=== PATIENT | male | born 1975 | race Caucasian/White ===

== ENCOUNTER → 2021-06-29 14:50 | Outpatient (REF) | payer OTHER, SELFPAY | LOC: ANHLAB 14:50 | PROVIDERS: PCP Family Medicine; Visit Provider Nurse Practitioner | DX: L72.11 Pilar cyst (principal) | CPT/HCPCS: 88304 ==

== ENCOUNTER → 2021-07-06 13:22 | Outpatient (REF) | payer OTHER, SELFPAY | LOC: ANHLAB 13:22 | PROVIDERS: PCP Family Medicine; Visit Provider Nurse Practitioner | DX: L72.11 Pilar cyst (principal); L72.0 Epidermal cyst | CPT/HCPCS: 88304 ==

== ENCOUNTER 2025-04-13 05:01 | Emergency (ER) | payer SELFPAY ==
--- NOTE | ~2025-04-13 | CT_ITS ---
CT of the Abdomen and Pelvis: Indication: Scrotal erythema and swelling Technique: 2.5 mm axial scans were obtained through the abdomen and pelvis following intravenous adm inistration of 100 cc of Omnipaque 350. Dose reduction technique was used on this scan by utilizing a utomated exposure control and iterative reconstruction technique. The dose-length product (DLP) was 1 619.43 mGy-cm. Findings: Scans through the lung bases are unremarkable. The liver, spleen, pancreas, gallbladder, adrenals and kidneys are within normal limits. No evidence of aortic aneurysm. No lymphadenopathy. Questionable minimal wall thickening of several small bowel loops. Relatively fluid-filled large lacey l present. Images through the pelvis were performed. Urinary bladder unremarkable. No pelvic mass. No ascites. T here is diffuse scrotal edema noted. Impression: Questionable nonspecific enterocolitis. Diffuse scrotal soft tissue edema, nonspecific. Reviewed, dictated and finalized at [facility]. Impression: Questionable nonspecific enterocolitis. Diffuse scrotal soft tissue edema, nonspecific.
--- NOTE | ~2025-04-13 | US_ITS ---
Testicular ultrasound with doppler. Indication: Torsion. Technique: Real-time sonography the scrotum was performed. Color flow Doppler and Doppler spectral an alysis were performed. Findings: The testes are homogeneous in echotexture bilaterally. There is no evidence of an intrates ticular mass. The right testis measures 3.8 x 2.1 x 2.9 cm and the left 3.4 x 2.3 x 2.4 cm. There is color-flow seen to both testes. Arterial and venous spectral waveforms are seen in both testes. There is no sonographic evidence of torsion. Suggestion of heterogeneous enlargement of the mid to distal left epididymis with somewhat asymmetric left scrotal wall thickening/edema. Impression: Findings suggestive of left epididymitis with associated left scrotal wall thickening/edema. No testicular mass or torsion. Reviewed, dictated and finalized at [facility]. Impression: Findings suggestive of left epididymitis with associated left scrotal wall thic kening/edema. No testicular mass or torsion.
[2025-04-13 05:07] VITALS: BP 126/78; PULSE 126; RESP 18; TEMP 36.5; O2SAT 97
--- OUTSIDE RECORDS SUMMARY | 2025-04-13 05:08 | XMS_ITS | Referral Summary ---
Author Organization [facility] Address [address] [place] [address] Care Team Providers Care Electrical Maintenance Man Name Role Phone Gloria Keane MD Primary Care Provider +1- [phone] Allergies Active Allergy Reactions Criticality Noted Date Comments Penicillins Other (See comments) Low 05/14/2023 unknown Social History Tobacco Use Types Packs/Day Years Used Date Smoking Tobacco: Never Tobacco Cessation:Counseling Given: Not Answered Alcohol Use Standard Drinks/Week Comments Yes 0 (1 standard drink = 0.6 oz pur e alcohol) rare Personal Safety Answer Date Recorded Getting School Help Needed Not on file 01/20 Sex and Gender Information Value Date Recorded Sex Assigned at Not on file Legal Sex Male 2:42 AM CDT Gender Identity Not on file Sexual Orientation Not on file Last Filed Vital Signs Vital Sign Reading Time Taken Comments Blood Pressure 157/115 05/14/2023 4:23 AM CDT Pulse 90 05/14/2023 4:23 AM CDT Temperature 36.6 C (97.9 F) 05/14/2023 4:23 AM CDT Respiratory Rate 19 05/14/2023 4:23 AM CDT Oxygen Saturation 97% 05/14/2023 4:23 AM CDT Inhaled Oxygen Concentration - - Weight 119.4 kg (263 lb 3.7 oz) 05/14/2023 2:49 AM CDT Height 185.4 cm (6' 1) 05/14/2023 2:49 AM CDT Body Mass Index 34.73 05/14/2023 2:49 AM CDT Plan of Treatment Not on file Insurance [facility] CHOICE PLUS Care Teams Electrical Maintenance Man Relationship Specialty Start Date End Date Gloria Keane MD [address] [place] [address] [place] [address] PCP - General Family Medicine 05/14/23
--- OUTSIDE RECORDS SUMMARY | 2025-04-13 05:08 | XMS_ITS | Clinical Summary ---
Author Organization [facility] Address [address] [place] [address] Care Team Providers Care Sumac Tanner Name Role Phone Gloria Keane MD Primary Care Provider [phone]- [phone] Allergies Active Allergy Reactions Criticality Noted Date Comments Penicillins Other (See comments) Low 05/14/2023 unknown Surgical History Surgery Date Site/Laterality Comments SKIN SURGERY Medical History Medical History Date Comments Hypertension Social History Tobacco Use Types Packs/Day Years [...] on file Sexual Orientation Not on file Obstetrics History Last Filed Vital Signs Vital Sign Reading [...] 05/14/2023 2:49 AM CDT Plan of Treatment Health Maintenance Due Date Last Done Comments Colon Cancer Screening-Colonoscopy 1975 Depression Screening 1975 Hepatitis C Screening 1975 Prostate Cancer Screening-PSA 1975 DTaP/Tdap/Td Vaccine (1 - Tdap) 1986 Hepatitis B Screening 1993 Regular Well Visit/Exam 18-64 1993 Covid-19 Vaccine ( - season) 2024 09/09/2022, 11/11/2021, 02/09/2021, Additional history exists Zoster Vaccine (1 of 2) 2025 Influenza Vaccine (Season Ended) 2025 Pneumococcal vaccine <65 Aged Out No longer eligible based on patient's age to complete this topic Insurance [facility] CHOICE PLUS [facility] HMO/PPO Address: [facility] [address] [place] [address] Care Teams Sumac Tanner Relationship Specialty Start Date End Date Gloria Keane MD [facility] [place] [address] PCP - General Family Medicine 05/14/23
--- OUTSIDE RECORDS SUMMARY | 2025-04-13 05:08 | XMS_ITS | Data Portability ---
Author Organization [place] - [facility], Main Office Address [address] [place] [address] Assessment No assessment recorded. Plan of Treatment Reminders Order Date Submit Date Provider Last Modified By Organization Details Last Modified Time Details Appointments Follow Up 15 2024 07:30A MONTEZ Santiago Not available Not available Not available Lab vitamin D, 25-hydrox y, total, serum 2024 025 [facility], [address], [address], [place], [address], 03/18/2025 08:07:25 cobalamin and folate panel, serum 2024 025 [email or web address], [address], [address], [place], [address], 03/18/2025 08:07:25 PSA, serum or plasma 2024 025 [facility], [address], [address], [place], [address], 03/18/2025 08:07:24 noninvasi ve colorecta l cancer DNA + occult blood screening , QL, stool 2024 025 [facility] (Cologuard Orders Only), Caridad E Roc Mehta, [address], [place], [address], 03/18/2025 08:07:24 CBC w/ auto diff 2024 025 SALIMA [facility], [address], [address], [place], [address], 03/12/2025 10:26:36 CMP, serum or plasma 2024 025 [email or web address], [address], [address], [place], [address], 03/18/2025 08:07:24 TSH, ultra-sen sitive, serum 2024 025 [email or web address], [address], [address], [place], [address], 03/18/2025 08:07:25 lipid panel, serum 2024 025 [facility], [address], [address], [place], [address], 03/18/2025 08:07:25 HbA1c (hemoglob in A1c), blood 2024 025 [facility], [address], [address], [place], [address], 03/18/2025 08:07:25 Referral dermatolo gist referral - Please call patient to schedule an appointme nt. Thank you. 2024 025 [facility], [address] [place] [address], [place], [address], 03/17/2025 18:18:05 ophthalmo logist referral 2022 023 [email or web address] Oleg Wiseman MD, [address] [facility] [facility], [place], [address], 02/09/2023 13:27:36 Procedures None recorded. Surgeries None recorded. Imaging None recorded. Medication Orders cetirizin e 10 mg tablet 2024 025 [facility], [address], [place], [address], 03/11/2025 09:19:59 amlodipin e 10 mg tablet 2024 025 [facility], [address] [place], [address], 01/10/2025 09:01:05 atenolol 50 mg tablet [address], [address] [place], [address], 03/11/2025 08:55:41 atenolol 100 mg tablet 2024 025 [facility] [address], [address] [place], [address], 01/10/2025 09:01:05 metoprolo l tartrate 25 mg tablet [address] [facility] [address], [address] [place], [address], 03/11/2025 08:55:57 amlodipin e 10 mg tablet 2023 024 [facility] [address], [address] [place], [address], 10/22/2024 09:46:17 Patient TargetsNo targets recorded. Patient InstructionsNo instructions recorded. Reason for Referral Scanning Coordinator Referral for Visual disturbance Referring Physician: Gloria Keane [facility], Encounter Date: 01/06/2023 House Carpenter Helper Referral for C yst of face Please call patient to schedule an appointment. Thank you. Referring Physician: Lisa Watson Family [facility], Encounter Date: 03/11/2025 Results Created Date Observation Date Name Description Value Unit Range Abnormal Flag Note LastModifiedBy Organization Detail LastModifiedTime 08/09/20 21 08/09/2021 SARS- COV-2 (COVI D-19) ANTIG EN sars-cov-2 (covid-19) antigen non-re active non-re active This test has been autho rized by the FDA under an Emerg ency Use Autho rizat ion (EUA) for use by autho rized labor atori es. This test is only for the detec tion of SARS- CoV-2 antig en, not for any other virus es or patho gens. Negat dennis resul ts from patie nts with sympt om onset outsi de of one to six days shoul d be treat ed as presu mptiv e. Negat dennis resul ts do not rule out SARS- CoV-2 infec tion and shoul d not be used as the sole basis of treat ment or patie nt manag ement decis ions, inclu ding infec tion contr ol decis ions. Negat dennis resul ts shoul d be consi dered in the jennifer xt of a patie nt's recen t expos ures, histo ry and the prese nce of clini diomedes signs and sympt oms consi stent with COVID -19. The VITRO S Immun odiag nosti cs Produ cts SARS- CoV-2 Antig en Lette r of Autho rizat ion, along with the autho rized Fact Sheet for Healt hcare Provi ders, the autho rized Fact Sheet for Recip ients , and autho rized label ing are avail able on the FDA Websi te: https ://ww w.fda .gov/ medic al-de vices /maurilio yeisonir -[facility] -2019 -covi d-19- emerg ency- use-a torey germain ons-m edica l-dev ices/ vitro -diag nosti cs-eu as# indiv idual -sero logic al Not Available [facility] (Lab) [address] [place], [address], 08/09/2021 11:17:01 08/09/20 21 08/09/2021 SARS- COV-2 (COVI D-19) ANTIG EN signal to cutoff ratio 0.28 0.00-0 .99 Not Available [facility] (Lab) [address] [place], [address], 08/09/2021 11:17:01 03/20/20 25 03/20/2025 COLOG UARD cologuard result reportable NEGATI VE negati ve normal The Colog uard (TM) test was perfo rmed on this speci men. NEGAT DENNIS TEST RESUL T. A negat dennis Colog uard resul t indic ates a low likel ihood that a color ectal cance r (CRC) or advan kaushik adeno ma (evelyn omato us polyp s with more advan kaushik pre-m align ant featu res) is prese nt. The [facility] e that a perso n with a negat dennis Colog uard test has a color ectal cance r is less than 1 in 1500 (nega tive predi ctive value >99.9 %) or has an advan kaushik adeno ma is less than 5.3% (nega tive predi ctive value 94.7% ). These data are based on a prosp ectiv e cross -sect ional study of ,00 0 indiv idual s at [facility] risk for color ectal cance r who were scree jelena with both Colog uard and colon oscop y. (Sukhdev cheema T. et al, N Engl J Med 2014; 370(1 4):12 86-12 97) The yuliya l value (refe rence range ) for this assay is negat dennis. COLOG UARD RE-SC REENI NG RECOM MENDA TION: Perio dic color ectal cance r scree lisa is an impor tant part of preve ntive healt hcare for asymp tomat ic indiv idual s at [facility] risk for color ectal cance r. Follo wing a negat dennis Colog uard resul t, the Ameri can Cance r Socie ty and U.S. Multi -Soci ety Task Force scree lisa guide lines recom mend a Colog uard re-sc reeni ng inter barbara of 3 years . Refer ences : Ameri can Cance r Socie ty Guide line for Color ectal Cance r Scree lisa: https ://noah w.can cer.o rg/ca ncer/ colon -rect al-ca ncer/ detec tion- diagn osis- stagi ng/ac s-rec ommen datio ns.ht ml.; Issa DK, Blayne mane CR, Kelly MarieK, Color ectal Cance r Scree lisa: Recom menda tions for Physi cians and Patie nts from the U.S. Multi -Soci ety Task Force on Color ectal Cance r Scree lisa , Alex hopson y 2017; 112:1 016-1 030. TEST DESCR IPTIO N: Elida site algor ithmi c misty sis of stool DNA-b iokuldeep peraltas with hemog lobin immun oassa y. Quant itati ve value s of indiv idual bioma rkers are not repor table and are not assoc iated with indiv idual bioma rker resul t refer ence range s. Colog uard is inten ded for color ectal cance r scree lisa of adult s of eithe r sex, 45 years or older , who are at [facility] for color ectal cance r (CRC) . Colog uard has been appro gary for use by the U.S. FDA. The perfo rmanc e of Colog uard was estab lishe d in a cross secti onal study of [facility] adult s aged 50-84 . Colog uard perfo rmanc e in patie nts ages 45 to 49 years was estim ated by sub-g roup misty sis of near- age group s. Colon oscop ies perfo rmed for a posit dennis resul t may find as the most clini charity signi roxy frances lesio n: color ectal cance r [4.0% ], advan kaushik adeno ma (incl uding sessi le mary ellen ana laura polyp s great er than or equal to 1cm diame ter) [20%] or non- advan kaushik adeno ma [31%] ; or no color ectal neopl lona [45%] . These estim ates are deriv ed from a prosp ectiv e cross -sect ional scree lisa study of 10,00 0 indiv idual s at [facility] for color ectal cance r who were scree jelena with both Colog uard and colon oscop y. (Impe riale T. et al, N Engl J Med 2014; 370(1 4):12 86-12 97.) Colog uard may produ ce a false negat dennis or false posit dennis resul t (no color ectal cance r or preca ncero us polyp prese nt at colon oscop y follo w up). A negat dennis Colog uard test resul t does not guara ntee the absen ce of CRC or advan kaushik adeno ma (pre- cance r). The curre nt Colog uard scree lisa inter barbara is every 3 years . (Amer ican Cance r Socie ty and U.S. Multi -Soci ety Task Force ). Colog uard perfo rmanc e data in a ,00 0 patie nt pivot al study using colon oscop y as the refer ence metho d can be acces sed at the follo wing locat ion: www.e xactl abs.c om/re sulgeorgie . Addit ional descr iptio n of the Colog uard test proce ss, warni ngs and preca ution s can be found at www.c oltalau pranav.c om. Not Available [facility] (Cologuard Orders Only) [address], [place], [address], 03/30/2025 00:25:27 Result Notes None recorded. Problems Name Problem SNOMED Code Status Onset Date Resolution Date Notes Provider Name and Address Organization Details Recorded Time Visual disturbance 65994946 Active 2022 Gloria Keane MD [address] [facility], [facility] [address], [place], [address], [facility] 3 10:03:47 Cyst of face 314820709 Completed 202203/11/2025 MONTEZ Reddy [address] [facility], [facility] [address], [place], [address], [facility] 5 09:10:59 Essential hypertensio n 02058855 Active 2023 MONTEZ Reddy [address] [facility], [address], [place], [address], [facility] 4 09:45:14 Allergic rhinitis 38197691 Active 2024 MONTEZ Reddy [address] [facility], [address], [place], [address], [facility] 5 09:08:39 Cyst of face 610476861 Active 2024 MONTEZ Reddy [employer] [facility], [address] [address], [place], [address], [facility] 5 09:10:59 Body mass index 30+ - obesity 113803825 Active 2024 MONTEZ Reddy [employer] [facility], [address], [place], [address], [facility] 5 09:19:04 Fatigue 37518500 Active 2024 MONTEZ [employer] [facility], [address] [address], [place], [address], [facility] 5 09:19:39 Vitamin D deficiency 35287885 Active 2024 MONTEZ Reddy [employer] [facility], [address] [address], [place], [address], [facility] 5 11:16:13 Problem Notes None recorded. Medical Equipment None Reported. Allergies Allergen ID Allergen Name Allergen Category Reaction Reaction Severity Criticality Documentation Date Start Date Code Code System Note Provider Name and Address Organization Details Recorded Time 85270 Product containin g penicilli n (product) medicatio n Not available Not available Not available 01/04/2023 32455 8001 SNOMED Not Available [facility] 3 10:48:01 Medications Name Sig Start Date Stop Date Status Note LastModified by Organization Details LastModified Time fluconazole 100 mg tablet Take 1 tablet every day by oral route for 30 days. 01/06 completed Not Available Not Available Not Available cetirizine 10 mg tablet TAKE 1 TABLET BY MOUTH ONCE DAILY NEEDED 2024 active Not Available Not Available Not Avai lable lisinopril 20 mg-hydrochl orothiazide 12.5 mg tablet TK 2 TS PO QD 04/07 completed Not Available Not Available Not Available atenolol 100 mg tablet TAKE 1 TABLET BY MOUTH ONCE DAILY DIRECTED active Not Available Not Available No t Available terbinafine HCl 250 mg tablet TAKE 1 TABLET BY MOUTH EVERY DAY 01/06 completed Not Available Not Available Not Available amlodipine 10 mg tablet Take 1 tablet by mouth once daily 2024 active Not Available Not Available Not Avai lable hydrochloro thiazide 25 mg tablet TK 1 T PO QD 04/07 completed Not Available Not Available Not Available ergocalcife rol (vitamin D2) 1,250 mcg (50,000 unit) capsule TAKE 1 CAPSULE BY MOUTH ONCE A WEEK DIRECTED active Not Available Not Available No t Available atenolol 50 mg tablet TAKE 1 TABLET BY MOUTH ONCE DAILY DIRECTED FOR 30 DAYS 03/11 completed Not Available Not Available Not Available metoprolol tartrate 25 mg tablet TAKE 1 TABLET BY MOUTH TWICE DAILY DIRECTED 03/11 completed Not Available Not Available Not Available Vitals Date Recorded Body weight Body mass index (BMI) Body height Body temperature Heart rate Oxygen saturation Oxygen saturation in Arterial blood by Pulse oximetry Systolic blood pressure Diastolic blood pressure Provider Name and Address Organization Details Last Updated DateTime 3 635530. 79 g 34.7 kg/m2 185.42 cm 98.1 [degF] 82 /min 97 % 97 % 144 mm[Hg] 100 mm[Hg] STEPHANIE Johnson MD [facility] 3 09:51:30 Date Recorded Body height Body mass index (BMI) Body weight Body temperature Heart rate Respiratory rate Oxygen saturation Oxygen saturation in Arterial blood by Pulse oximetry Systolic blood pressure Diastolic blood pressure Provider Name and Address Organization Details Last Updated DateTime 5 185.42 cm 34.4 kg/m2 290381. 61 g 97.3 [degF] 73 /min 20 /min 98 % 98 % 156 mm[Hg] 110 mm[Hg] Elizabeth Torres RN MD [facility] 5 08:48:19 Date Recorded Body height Body mass index (BMI) Body weight Body temperature Heart rate Respiratory rate Oxygen saturation Oxygen saturation in Arterial blood by Pulse oximetry Systolic blood pressure Diastolic blood pressure Provider Name and Address Organization Details Last Updated DateTime 5 185.42 cm 37.9 kg/m2 855024. 46 g 97.3 [degF] 71 /min 24 /min 97 % 97 % 130 mm[Hg] 110 mm[Hg] Elizabeth Torres RN [facility] [facility] 5 08:58:38 Date Recorded Body mass index (BMI) Body height Oxygen saturation Oxygen saturation in Arterial blood by Pulse oximetry Heart rate Body temperature Body weight Systolic blood pressure Diastolic blood pressure Provider Name and Address Organization Details Last Updated DateTime 1 34 kg/m2 185.42 cm 97 % 97 % 83 /min 96.8 [degF] 418338. 83 g 110 mm[Hg] 90 mm[Hg] Not Available [facility] 3 10:43:24 Date Recorded Body weight Body mass index (BMI) Body height Body temperature Heart rate Respiratory rate Oxygen saturation Oxygen saturation in Arterial blood by Pulse oximetry Systolic blood pressure Diastolic blood pressure Provider Name and Address Organization Details Last Updated DateTime 4 320202. 33 g 35.8 kg/m2 185.42 cm 97.2 [degF] 96 /min 20 /min 97 % 97 % 180 mm[Hg] 120 mm[Hg] Elizabeth Torres RN [facility] [employer] [facility] 4 09:34:18 Social History Question Answer Notes LastModified by Organization Details LastModified Time Tobacco Smoking Status Former Smoker Not Available [facility] 01/04/2023 10:41:48 Do You Have An Advance Directive? No Information not available 10/22/2024 What Is Your Level Of Caffeine Consumption? Occasional Information not available 10/22/2024 In The 14 Days Before Symptom Onset, Have You Had Close Contact With A Laboratory-conf irmed COVID-19 While That Case Was Ill? No [id number] Information not available 01/04/2023 In The 14 Days Before Symptom Onset, Have You Had Close Contact With A Person Who Is Under Investigation For COVID-19 While That Person Was Ill? No [id number] Information not available 01/04/2023 What Type Of Diet Are You Following? REGULAR Information not available 10/22/2024 Which Illicit Or Recreational Drugs Have You Used? MJ Information not available 10/22/2024 Have There Been Any Changes To Your Family Or Social Situation? No Information not available 10/22/2024 Are There Any Guns Present In Your Home? No Information not available 10/22/2024 How Many Years Have You Used Illicit Or Recreational Drugs? 15 Information not available 10/22/2024 Do You Use Insect Repellent Routinely? No Information not available 10/22/2024 Where Do You Live? SingleLevelHouse Information not available 10/22/2024 How Many Children Do You Have? 2 Information not available 10/22/2024 Do You Have Any Pets? Yes Information not available 10/22/2024 What Is Your Relationship Status? Single Girlfriend Information not available 10/22/2024 Do You Use Your Seat Belt Or Car Seat Routinely? Yes Information not available 10/22/2024 Do You Have Smoke And Carbon Monoxide Detectors In Your Home? Yes Information not available 10/22/2024 Are You Passively Exposed To Smoke? No Information not available 10/22/2024 Are There Any Smokers In Your House? No Information not available 10/22/2024 How Much Tobacco Do You Smoke? 0.5 PPD [id number] Information not available 01/04/2023 Do You Participate In Social Media? Yes Information not available 10/22/2024 Do You Use Sunscreen Routinely? No Information not available 10/22/2024 How Many Years Have You Smoked Tobacco? 15 [id number] [id number] Information not available 01/04/2023 Have You Recently Traveled Abroad? No Information not available 10/22/2024 Sex: Unknown Functional Status Question Answer Note LastModified by Organizat ion Details LastModified Time Do you use any illicit or recreational drugs? Yes Information not available 10/22/2024 What is your level of alcohol consumption? Occasional [id number] Information not available 01/04/2023 Are you currently employed? 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 None Information not available 10/22/2024 Mental Status Question Answer Note LastModified by Organization D etails LastModified Time Do you feel stressed (tense, restless, nervous, or anxious, or unable to sleep at night)? [id number] Information not available 10/22/2024 Family History Relationship Description Onset Age of this Age Resolved Age Notes LastModified by Organization Details LastModified Time Father No current problems or disability [id number] Not available 01/04/2023 10:42:39 Mother No current problems or disability [id number] Not available 01/04/2023 10:42:39 Medical History Condition Response ANXIETY DISORDER Y HYPERTENSION Y Past Encounters Encounter ID Performer Location Encounter Start Date Encounter Closed Date Diagnosis/Indication Diagnosis SNOMED-CT Code Diagnosis ICD10 Code Diagnosis Note [id number] Gloria Keane MD [facility] [address] [facility] [place] [address] 04/07/2021 00:00:00 04/07/2021 21:33:59 [id number] Gloria Keane MD [facility] [address] [place] [address] [place] [address] 04/28/2021 00:00:00 04/28/2021 09:40:46 [id number] Gloria Keane MD [facility] [address] [place] [address] [place] [address] 01/06/2023 09:46:41 01/06/2023 10:21:04 Visual disturbance 19195056 H53.9 Cyst of face 643020223 R 22.0 Reassuranc e given and has solar lentigo under the cyst. [id number] Clinton Obregon MD [address] [address] [place] [address] 10/22/2024 09:22:56 10/22/2024 09:48:30 Essential hypertension 46418381 I10 [facility] $4 listWill follow up in 6 weeks [id number] Clinton Obregon MD [facility] [place] [address] [place] [address] 01/10/2025 08:34:19 01/10/2025 09:06:36 Essential hypertension 18317156 I10 Will start BP log, feels he has white coat syndrome.W ill follow up in 6 weeks [id number] MONTEZ Reddy [address] [address] 03/11/2025 08:42:49 03/11/2025 09:31:10 Allergic rhinitis 83320764 J30.9 Eyes tennille red, itchy Adult heal examination 216518090 Z00.00 Patient is overall healthyHea [facility] reviewedDi scussed diet and exercisePa tient questions answered Essential hypertension 16708008 I10 Will start BP log, feels he has white coat syndrome.W ill follow up in 6 weeks Cyst of face 933030226 R 22.0 History of surgical removal, has returned Screening for malignant neoplasm of colon 119789055 Z12.11 Screening for malignant neoplasm of prostate 201172308 Z12.5 Body mass index 30+ - obesity 939114147 E66.9 Fatigue 31963987 R53.82 Health Concerns Section Related Observation LastModified by Organization Detai ls LastModified Time None Recorded Concern Status LastModified by Organization Details LastModified Time None Recorded Advance Directives Directive N: Payers Encounter Date Sequence Insurance Name Policy Number Policy Watson Covered Member ID Watson Member ID Guarantor Name 01/06/2023 1 [facility] [id number] [facility] [id number] [facility] 10/22/2024 1 *SELF PAY* [facility] 01/10/2025 1 [employer] [id number] 02 [facility] [id number] [facility] 03/11/2025 1 [employer] [id number] 02 Edilberto Dela Cruz [id number] F Edilberto Dela Cruz Notes Date Note Type Note Provider Name and Address Organization Details Recorded Time 01/06/2023 text/html Here today for a referral for family program specialist Has a mole on right cheek. Also needs to see an eye doctor. Everything is getting darker. Has blurry vision. His BP is a little high today. His BP are good at home. Took meds today for BP. Gloria Keane MD [address] [employer], [address], [place], [address], [facility] 01/06/2023 17:14:34 10/22/2024 text/html Edilberto Dela Cruz is a 49 year old male patient here today for hypertension He has a history of hypertension. He has been taking amlodipine 10 mg PO daily. States he has been spacing these out because he does not have a pending refillHe previously took lisinopril 20-HCTZ 12.5 mg and found this made him nauseous MONTEZ Reddy [address] [employer], [address], [place], [address], [facility] 10/22/2024 09:48:25 01/10/2025 text/html Edilberto Dela Cruz is a 49 year old male patient here today for a hypertension FU He has a history of hypertension. BP on arrival 156/110. States he is symptomaticHe previously took lisinopril 20-HCTZ 12.5 mg and found this made him nauseousCurrently taking amlodipine 10 mg PO daily and metoprolol 25 mg BID MONTEZ Reddy [address], [facility] [address], [place], [address], [facility] 01/10/2025 09:04:51 03/11/2025 text/html Edilberto Dela Cruz is a 50 year old male patient here today for an annual wellness visit. He has a history of hypertension. This is managed with amlodipine and atenolol History of sebacous cysts of the scalp, has had 4 removed Flu shot: declinesCOVID vaccines: x6Tdap: recommendedColonoscopy : cologuard ordered Lisa Watson, MONTEZ [address] [facility], [facility] [address], [place], [address], [place] [facility] 03/11/2025 09:23:20
--- NOTE | 2025-04-13 05:55 | PC.NURSE ---
patient reports to the nursing stating,I had an accident. patient noted to have bowel movement in his room near his belongings. patient then able to ambulate with steady unassisted gait towards the bathroom to finish his bowel movement. edp dr. obregon aware.
--- OUTSIDE RECORDS SUMMARY | 2025-04-13 06:03 | XMS_ITS | Referral Summary ---
Author Organization [facility] Address [address] [place] [address] Care Team Providers Care Kettle Hand Name Role Phone Gloria Keane MD Primary Care Provider +1- [phone] Allergies Active Allergy Reactions Criticality Noted Date [...] Plan of Treatment Not on file Insurance [facility] H[facility]/PPO Address: [facility] [id number] [place] [address] Care Teams Kettle Hand Relationship Specialty Start Date End Date Gloria Keane MD [address] [place] [address] [place] [address] PCP - General Family Medicine 05/14/23
--- OUTSIDE RECORDS SUMMARY | 2025-04-13 06:03 | XMS_ITS | Clinical Summary ---
Author Organization [facility] Address [address] [place] [address] Care Team Providers Care Collar Turner Operator Name Role Phone Gloria Keane MD Primary Care Provider +1- [phone] Allergies Active Allergy Reactions Criticality Noted Date [...] patient's age to complete this topic Insurance [facility] CHOICE PLUS Care Teams Collar Turner Operator Relationship Specialty Start Date End Date Gloria Keane MD [facility] [place] [address] PCP - General Family Medicine 05/14/23
[2025-04-13] MEDS: SODIUM CHLORIDE 0.9% IV 1,000 ML 999 ML IV CONT (06:17)
--- NOTE | 2025-04-13 06:18 | ED_ITS ---
HPI - Male Genitourinary General Chief complaint: Urogenital-Male <Xavi Dodd MD - Last Filed: 04/16/25 21:48> Stated complaint: Hernia?, swollen scrotum <Xavi Dodd MD - Last Filed: 04/16/25 21:48> Time Seen by Provider: 04/13/25 05:42 <Xavi Dodd MD - Last Filed: 04/16/25 21:48> History of Present Illness HPI Narrative: 50-year-old male with a past medical history including hypertension presenting to the emergency room with left-sided scrotal pain and swelling. Patient thinks he might have a hernia but did note that he had some potential bug bite to his scrotum a week ago and things that could also be related. Denies any urinary issues, hematuria, dysuria. No abdominal surgeries, no history of diabetes to his knowledge. No nausea, vomiting, inguinal pain, groin pain or flank pain. No trauma or injury. <Xavi Dodd MD - Last Filed: 04/16/25 21:48> Related Data Home medications: Home Medications ?Medication ?Instructions ?Recorded ?Confirmed ?Last Taken ?Type amlodipine 10 mg tablet 10 mg PO DAILY 05/03/21 04/14/25 04/13/25 History atenolol 100 mg tablet 100 mg PO Q24H 04/15/25 04/15/25 Unknown History cetirizine 10 mg tablet 10 mg PO DAILY PRN allergy symptoms 04/15/25 04/15/25 Unknown History <Xavi Dodd MD - Last Filed: 04/16/25 21:48> Allergies/Adverse reactions: Allergies Allergy/AdvReac Type Severity Reaction Status Date / Time Penicillins Allergy unknown Verified 04/14/25 12:39 <Xavi Dodd MD - Last Filed: 04/16/25 21:48> Review of Systems 2 Review of Systems: As reviewed above in HPI <Xavi Dodd MD - Last Filed: 04/16/25 21:48> [facility] Past Medical History Medical History: Medical History (Updated 04/16/25 @ 10:07 by Too Severino Jr., RECTIFYING OPERATOR) Marijuana abuse Vapes nicotine containing substance Sepsis Hypokalemia Scrotal abscess Hypertension <Xavi Dodd MD - Last Filed: 04/16/25 21:48> Social History Social History: Social History Smoking status: Current some day smoker Tobacco type: e-cigarettes/vaping Additional smoking assessment comments: Vaping Alcohol intake: current Drinks per week: 1 Substance use: current Substance use type: marijuana Last use: 04/09 Do You Feel Safe in your Home?: Yes Lack of Transportation: No Lack of Food: Never True Current Housing: I Have Housing Concerned About Future Housing: No Difficulty Paying Gas/Electric Bills: No Difficulty Paying for Meds: No Currently Unemployed: No Education: High School Diploma/GED Difficulty w/ Childcare or Family Care: No Spiritual care concerns: No <Xavi Dodd MD - Last Filed: 04/16/25 21:48> Exam 2 Narrative: GENERAL: [Well-appearing, well-nourished, and in no acute distress.] HEAD: [Normocephalic, atraumatic.] EYES: [PERRLA and EOMI.] ENT: Nares clear, no rhinorrhea or epistaxis. Mucous membranes moist. NECK: Supple. CHEST: [Clear to auscultation. No respiratory distress.] HEART: [Regular rate and rhythm]. No murmur heard. [Normal peripheral pulses.] ABDOMEN: [Soft, nondistended], [nontender], [No rigidity or guarding] : Circumcised penis, testicles are descended bilaterally with left-sided fullness and tenderness with palpation with what appears to be bilateral scrotal edema and erythema. No purulent drainage or any identifiable lesions, No epididymal pain or appreciable lymphadenopathy, no appreciable hernia defect on examination, no inguinal pain or masses. EXTREMITIES: Normal range of motion. [No edema.] SKIN: Warm, dry, no rash. NEURO: [No focal deficits]. Alert and oriented [x3.] PSYCH: [Normal mood and affect.] <Xavi Dodd MD - Last Filed: 04/16/25 21:48> Course Course Emergency Course: Patient resting comfortably. Informed of results. Received is ceftriaxone IM and will be given doxycycline for home. Epididymitis on ultrasound. No cellulitis or other significant issue on CT scan. Possible enterocolitis. <Fadi Elizondo MD - Last Filed: 04/13/25 09:29> Vital Signs Vital signs: Vital Signs Temperature 36.5 C 04/13/25 05:07 Pulse Rate 126 H 04/13/25 05:07 Respiratory Rate 18 04/13/25 05:07 Blood Pressure 126/78 04/13/25 05:07 Pulse Oximetry 97 04/13/25 05:07 Oxygen Delivery Room Air 04/13/25 05:07 Temperature 36.5 C 04/13/25 05:07 Pulse Rate 95 04/13/25 08:21 Respiratory Rate 18 04/13/25 08:21 Blood Pressure 91/59 L 04/13/25 08:21 Pulse Oximetry 97 04/13/25 08:21 Oxygen Delivery Room Air 04/13/25 05:07 <Xavi Dodd MD - Last Filed: 04/16/25 21:48> Vital Signs Temperature 36.5 C 04/13/25 05:07 Pulse Rate 126 H 04/13/25 05:07 Respiratory Rate 18 04/13/25 05:07 Blood Pressure 126/78 04/13/25 05:07 Pulse Oximetry 97 04/13/25 05:07 Oxygen Delivery Room Air 04/13/25 05:07 Temperature 36.5 C 04/13/25 05:07 Pulse Rate 95 04/13/25 08:21 Respiratory Rate 18 04/13/25 08:21 Blood Pressure 91/59 L 04/13/25 08:21 Pulse Oximetry 97 04/13/25 08:21 Oxygen Delivery Room Air 04/13/25 05:07 <Fadi Elizondo MD - Last Filed: 04/13/25 09:29> MDM - Male Genitourinary MDM Narrative Medical decision making narrative: 50-year-old male presenting with scrotal pain and thinks that he has a potential hernia verses bug bite/infection. Denies any urinary issues, no nausea, vomiting, abdominal pain, fever, chills. He appears mildly uncomfortable on examination he has circumcised penis, testicles are descended bilaterally with left-sided fullness and tenderness with palpation with what appears to be bilateral scrotal edema and erythema. No purulent drainage or any identifiable lesions, No epididymal pain or appreciable lymphadenopathy, no appreciable hernia defect on examination, no inguinal pain or masses. Ultrasound was ordered to rule out testicular torsion or any fluid collections, CT scan of the abdomen pelvis with attention to the scrotum was ordered for potential infectious process, scrotal edema, epididymitis, inguinal hernia, testicular masses. Low suspicion necrotizing soft tissue infection, but he is slightly tachycardic likely secondary to pain. He was given morphine and fluids, laboratory studies ordered. Ultrasound shows left epididymitis with scrotal wall edema and thickening consistent with examination but no testicular mass or torsion. He was given a dose of Rocephin and doxycycline for potential STI verses E coli causing the epididymitis. CT scan is pending. Signed out to oncoming physician pending results and likely discharge home on oral antibiotics if unremarkable. Urology follow-up placed. <Xavi Dodd MD - Last Filed: 04/16/25 21:48> Medical Records Attestation: I reviewed the patient's medical records. <Xavi Ddod MD - Last Filed: 04/16/25 21:48> Lab Data Attestation: I reviewed the patient's lab results. <Xavi Dodd MD - Last Filed: 04/16/25 21:48> Result diagrams: 04/13/25 06:14 04/13/25 06:14 <Xavi Dodd MD - Last Filed: 04/16/25 21:48> Labs: Lab Results 04/13/25 04/13/25 Range/Units 06:14 07:48 WBC 5.7 (4.5-10.0) K/mm3 RBC 5.28 (4.6-6.20) M/mm3 Hgb 15.4 (14.0-18.0) g/dL Hct 46.9 (42.0-52.0) % MCV 88.8 (80-100) fl MCH 29.2 (26-34) pg MCHC 32.8 (32-36) g/dl RDW 12.2 (11.5-14.5) % Plt Count 171 (150-375) k/mm3 MPV 10.3 (7.4-10.4) fl Immature Gran % (Auto) Not Reportable Neut % (Auto) Not Reportable Lymph % (Auto) Not Reportable [place] % (Auto) Not Reportable Eos % (Auto) Not Reportable Baso % (Auto) Not Reportable Lymph # (Auto) Not Reportable [place] # (Auto) Not Reportable Eos # (Auto) Not Reportable Baso # (Auto) Not Reportable Abs Immat Gran (auto) Not Reportable Absolute Neuts (auto) Not Reportable Absolute Nucleated RBC Not Reportable Total Counted 100 Neutrophils % (Manual) 74 H (46-73) % Band Neutrophils % 18 H (0-6) % Lymphocytes % (Manual) 5 L (18-44) % Monocytes % (Manual) 2 L (3-9) % Eosinophils % (Manual) 1 (0-4) % Nucleated RBC % Not Reportable Abs Neuts (Manual) 5.24 (1.3-6.7) K/mm3 Abs Lymphs (Manual) 0.28 L (1.1-4.5) K/mm3 Abs Monocytes (Manual) 0.11 (0.1-0.90) K/mm3 Absolute Eos (Manual) 0.05 (0.02-0.50) K/mm3 Platelet Estimate Adequate (Adequate) Schistocytes None seen PT 14.6 (11.1-14.7) Seconds INR 1.1 APTT 29.8 (22.3-36.8) Seconds Sodium 136 L (137-145) mmol/L Potassium 3.6 (3.4-5.0) mmol/L Chloride 100 (98-107) mmol/L Carbon Dioxide 23 (22-30) mmol/L Anion Gap 13 H (4-12) mmol/L BUN 20 (9-20) mg/dL Creatinine 1.72 H (0.7-1.3) mg/dL Estim Creat Clear Calc 64 ml/min Estimated GFR 42 L (59 - ) Glucose 136 H (65-110) mg/dL Calcium 9.6 (8.4-10.2) mg/dL Total Bilirubin 2.1 H (0.2-1.3) mg/dL AST 51 (17-59) U/L ALT 60 H (6-50) U/L Alkaline Phosphatase 105 (38-126) U/L Total Protein 7.7 (6.3-8.2) g/dL Albumin 4.6 (3.5-5.1) g/dL Urine Color Dark yellow (Yellow) Urine Appearance Cloudy H (Clear) Urine pH 7.5 (5.0-9.0) Ur Specific [place] > 1.045 H (1.001-1.035) Urine Protein 3+ H (Negative) mg/dL Urine Glucose (UA) Trace H (Negative) mg/dL Urine Ketones Negative (Negative) mg/dL Ur Blood (Man) Trace (Negative) Urine Nitrate Negative (Negative) Urine Bilirubin Negative (Negative) Urine Urobilinogen 1.0 (<2.0) mg/dL Add Ur Microanalysis Reviewed Leukocyte Esterase Rfl 1+ H (Negative) SUNG/UL Urine RBC 0-2 (0-2) /hpf Urine WBC 51-100 H (0-3) /hpf Ur Squamous Epith Cells None seen (Few) /hpf Urine Bacteria None seen /hpf Urine Casts >20 Granular Casts 1-2 H (None) /lpf <Xavi Dodd MD - Last Filed: 04/16/25 21:48> Lab Results 04/13/25 04/13/25 Range/Units 06:14 07:48 WBC 5.7 (4.5-10.0) K/mm3 RBC 5.28 (4.6-6.20) M/mm3 Hgb 15.4 (14.0-18.0) g/dL Hct 46.9 (42.0-52.0) % MCV 88.8 (80-100) fl MCH 29.2 (26-34) pg MCHC 32.8 (32-36) g/dl RDW 12.2 (11.5-14.5) % Plt Count 171 (150-375) k/mm3 MPV 10.3 (7.4-10.4) fl Immature Gran % (Auto) Not Reportable Neut % (Auto) Not Reportable Lymph % (Auto) Not Reportable [place] % (Auto) Not Reportable Eos % (Auto) Not Reportable Baso % (Auto) Not Reportable Lymph # (Auto) Not Reportable [place] # (Auto) Not Reportable Eos # (Auto) Not Reportable Baso # (Auto) Not Reportable Abs Immat Gran (auto) Not Reportable Absolute Neuts (auto) Not Reportable Absolute Nucleated RBC Not Reportable Total Counted 100 Neutrophils % (Manual) 74 H (46-73) % Band Neutrophils % 18 H (0-6) % Lymphocytes % (Manual) 5 L (18-44) % Monocytes % (Manual) 2 L (3-9) % Eosinophils % (Manual) 1 (0-4) % Nucleated RBC % Not Reportable Abs Neuts (Manual) 5.24 (1.3-6.7) K/mm3 Abs Lymphs (Manual) 0.28 L (1.1-4.5) K/mm3 Abs Monocytes (Manual) 0.11 (0.1-0.90) K/mm3 Absolute Eos (Manual) 0.05 (0.02-0.50) K/mm3 Platelet Estimate Adequate (Adequate) Schistocytes None seen PT 14.6 (11.1-14.7) Seconds INR 1.1 APTT 29.8 (22.3-36.8) Seconds Sodium 136 L (137-145) mmol/L Potassium 3.6 (3.4-5.0) mmol/L Chloride 100 (98-107) mmol/L Carbon Dioxide 23 (22-30) mmol/L Anion Gap 13 H (4-12) mmol/L BUN 20 (9-20) mg/dL Creatinine 1.72 H (0.7-1.3) mg/dL Estim Creat Clear Calc 64 ml/min Estimated GFR 42 L (59 - ) Glucose 136 H (65-110) mg/dL Calcium 9.6 (8.4-10.2) mg/dL Total Bilirubin 2.1 H (0.2-1.3) mg/dL AST 51 (17-59) U/L ALT 60 H (6-50) U/L Alkaline Phosphatase 105 (38-126) U/L Total Protein 7.7 (6.3-8.2) g/dL Albumin 4.6 (3.5-5.1) g/dL Urine Color Dark yellow (Yellow) Urine Appearance Cloudy H (Clear) Urine pH 7.5 (5.0-9.0) Ur Specific [place] > 1.045 H (1.001-1.035) Urine Protein 3+ H (Negative) mg/dL Urine Glucose (UA) Trace H (Negative) mg/dL Urine Ketones Negative (Negative) mg/dL Ur Blood (Man) Trace (Negative) Urine Nitrate Negative (Negative) Urine Bilirubin Negative (Negative) Urine Urobilinogen 1.0 (<2.0) mg/dL Add Ur Microanalysis Reviewed Leukocyte Esterase Rfl 1+ H (Negative) SUNG/UL Urine RBC 0-2 (0-2) /hpf Urine WBC 51-100 H (0-3) /hpf Ur Squamous Epith Cells None seen (Few) /hpf Urine Bacteria None seen /hpf Urine Casts >20 Granular Casts 1-2 H (None) /lpf <Fadi Elizondo MD - Last Filed: 04/13/25 09:29> Imaging Data Attestation: I personally reviewed and interpreted this imaging study as follows: < Xavi Dodd MD - Last Filed: 04/16/25 21:48> My impression: Impressions Scrotum Ultrasound 04/13/25 06:53 Impression: Findings suggestive of left epididymitis with associated left scrotal wall thickening/edema. No testicular mass or torsion. <Xavi Dodd MD - Last Filed: 04/16/25 21:48> Discharge Plan Discharge Clinical Impression: Epididymitis, left <Xavi Dodd MD - Last Filed: 04/16/25 21:48> Patient Disposition: Home <Xavi Dodd MD - Last Filed: 04/16/25 21:48> Condition: Stable <Xavi Dodd MD - Last Filed: 04/16/25 21:48> Instructions: Antibiotic Form, Epididymitis (ED) <Xavi Dodd MD - Last Filed: 04/16/25 21:48> Additional Instructions: Follow-up with the urologist, complete the course of antibiotics. Return with any worsening pain, worsening swelling, intractable fever, inability to tolerate oral intake or any other acute concerns. <Xavi Dodd MD - Last Filed: 04/16/25 21:48> Patient Language: French <Xavi Dodd MD - Last Filed: 04/16/25 21:48> Prescriptions: New doxycycline hyclate 100 mg tablet 100 mg PO DAILY 10 Days Qty: 10 0RF No Action amlodipine 10 mg tablet 10 mg PO DAILY atenolol 100 mg tablet 100 mg PO Q24H cetirizine 10 mg tablet 10 mg PO DAILY PRN (Reason: allergy symptoms) <Xavi Dodd MD - Last Filed: 04/16/25 21:48> Follow-up/Referrals: Boo Posadas MD [Physician] - 1 Week (Left epididymitis) PHYSICIAN,DIAMOND SORTER [Primary Care Provider] - <Xavi Dodd MD - Last Filed: 04/16/25 21:48>
[2025-04-13 06:24] LABS: Hematocrit 46.9 % (42.0-52.0); Hemoglobin 15.4 g/dL (14.0-18.0); Mean Corpuscular HGB Conc 32.8 g/dl (32-36); Mean Corpuscular Hemoglobin 29.2 pg (26-34); Mean Corpuscular Volume 88.8 fl (80-100); Mean Platelet Volume 10.3 fl (7.4-10.4); Platelet Count Result 171 k/mm3 (150-375); Red Blood Count 5.28 M/mm3 (4.6-6.20); Red Cell Distribution Width 12.2 % (11.5-14.5); White Blood Count 5.7 K/mm3 (4.5-10.0)
[2025-04-13 06:39] LABS: INR 1.1; Prothrombin Time 14.6 Seconds (11.1-14.7)
[2025-04-13 06:40] LABS: Partial Thromboplastin Time 29.8 Seconds (22.3-36.8)
[2025-04-13] MEDS: MORPHINE SULFATE (*CRX) 4 MG/ML INJ IV PUSH (06:47)
[2025-04-13 06:51] LABS: Band Neutrophils Percent 18 % (0-6); Eosinophils Absolute Manual 0.05 K/mm3 (0.02-0.50); Eosinophils Percent Manual 1 % (0-4); Lymphocytes Absolute Manual 0.28 K/mm3 (1.1-4.5); Lymphocytes Percent Manual 5 % (18-44); Monocytes Absolute Manual 0.11 K/mm3 (0.1-0.90); Monocytes Percent Manual 2 % (3-9); Neutrophils Absolute Manual 5.24 K/mm3 (1.3-6.7); Neutrophils Percent Manual 74 % (46-73); Platelet Estimate Adequate (Adequate); Schistocytes None Seen; Total Cells Counted 100
[2025-04-13 06:53] LABS: Alanine Aminotransferase 60 U/L (6-50); Albumin Level 4.6 g/dL (3.5-5.1); Alkaline Phosphatase 105 U/L (38-126); Anion Gap 13 mmol/L (4-12); Aspartate Amino Transferase 51 U/L (17-59); Bilirubin,Total 2.1 mg/dL (0.2-1.3); Blood Urea Nitrogen 20 mg/dL (9-20); Calcium 9.6 mg/dL (8.4-10.2); Carbon Dioxide 23 mmol/L (22-30); Chloride 100 mmol/L (98-107); Estimated CRCL calculation 64 ml/min; Estimated Glomerular Filt Rate 42; Glucose 136 mg/dL (65-110); Potassium 3.6 mmol/L (3.4-5.0); Sodium 136 mmol/L (137-145); Total Protein 7.7 g/dL (6.3-8.2)
[2025-04-13] MEDS: cefTRIAXone 1 GM VIAL 0.5 GM IM (07:38)
[2025-04-13] MEDS: WATER, STERILE FOR INJECTION 10 ML VIAL XX (07:39)
[2025-04-13] MEDS: DOXYCYCLINE 100 MG/NS 100 ML 100 MG/100 ML BAG IVPB (07:55)
[2025-04-13 08:17] LABS: Add Urine Microscopic? YES; Appearance Urine Cloudy (Clear); Bacteria Urine None Seen /hpf; Bilirubin Urine Negative (Negative); Blood Urine Trace (Negative); Color Urine Dark Yellow (Yellow); Glucose Urine UA Trace mg/dL (Negative); Ketones Urine Negative (Negative); Leukocyte Esterase Ur 1+ LEU/UL (Negative); Need Manual Microscopic Reviewed; Nitrate Urine Negative (Negative); Non Pathogenic Casts >20; Protein Urine 3+ mg/dL (Negative); RBC Urine 0-2 /hpf (0-2); Specific Grav Ur > 1.045 (1.001-1.035); Squamous Epithelial Cell Urine None Seen /hpf (Few); WBC Urine 51-100 /hpf (0-3); pH Urine 7.5 (5.0-9.0)
[2025-04-13 08:21] VITALS: BP 91/59; PULSE 95; RESP 18; O2SAT 97
== END 2025-04-13 09:30 | disposition home or self-care (01) ==
PROVIDERS: Emergency Provider Student in an Organized Health Care Education/Training Program
DX: N45.1 Epididymitis (principal); I10 Essential (primary) hypertension; F17.290 Nicotine dependence, other tobacco product, uncomplicated
CPT/HCPCS: 36415; 74177; 76870; 80053; 81001; 85025; 85610; 85730; 87086; 93976; 96361; 96365; 96372; 96375; 99284; J0696; J2270; J7030; Q9967

== ENCOUNTER 2025-04-14 12:19 | Inpatient (IN) | payer BC, SELFPAY ==
[2025-04-14] VITALS (24 sets, daily range): BP systolic 100–136; BP diastolic 49–119; PULSE 111–150; RESP 14–35; TEMP 36.8–37.3; O2SAT 94–100; BMI 36.7
--- NOTE | ~2025-04-14 | US_ITS ---
Testicular ultrasound with doppler. Indication: Leukocytosis. Technique: Real-time sonography the scrotum was performed. Color flow Doppler and Doppler spectral an alysis were performed. Findings: The testes are homogeneous in echotexture bilaterally. There is no evidence of an intrates ticular mass. The right testis measures 3.6 x 2.1 x 2.7 cm and the left 2.7 x 2.6 x 2.5 cm. There is color-flow seen to both testes. Arterial and venous spectral waveforms are seen in both testes. There is no sonographic evidence of torsion. There is suggestion of hypervascularity of the bilateral epid idymides. There is diffuse scrotal soft tissue thickening/edema. Impression: Suspected bilateral epididymitis. No testicular mass or torsion. Diffuse scrotal soft tissue thickening/edema. Reviewed, dictated and finalized at [facility]. Impression: Suspected bilateral epididymitis. No testicular mass or torsion. Diffuse scrotal soft tissue thickening/edema.
--- NOTE | ~2025-04-14 | CT_ITS ---
EXAMINATION: CT pelvis w con DATE: 04/14/2025 13:48 INDICATION: Severe testicular pain and swelling TECHNIQUE: Computed tomography (CT) of the pelvis was performed with 100 mL Omnipaque-350 intravenous contrast. Automated exposure control and iterative reconstruction technique were employed.The dose-l ength product was 1118.84 mGy-cm. COMPARISON: 04/13/2025 FINDINGS: Visualized portions of bowels including the appendix are normal. Bladder is normal. No free fluid or gas within the pelvis or visualized lower abdomen. Bilateral small fat-containing inguinal hernias. T here is prominent scrotal edema. Enhancement is seen at the bilateral testes and epididymides. Small bilateral hydroceles, left greater than right. Prominent scrotal edema with hyperemia suggestive of c ellulitis. No abscess or evident soft tissue gas to suggest necrotizing fasciitis. No pathologically enlarged pelvic or inguinal lymphadenopathy. Mild degenerative skeletal changes in the pelvis and vis ualized lower lumbar spine. IMPRESSION: 1. Small bilateral hydroceles with prominent scrotal edema including some associated hyperemia consis tent with cellulitis. No evident abscess or soft tissue gas to suggest active fasciitis which is ulti mately a clinical diagnosis. Reviewed, dictated and finalized at location A. IMPRESSION: 1. Small bilateral hydroceles with prominent scrotal edema including some assoc iated hyperemia consistent with cellulitis. No evident abscess or soft tissue g as to suggest active fasciitis which is ultimately a clinical diagnosis.
--- NOTE | ~2025-04-14 | US_ITS ---
EXAMINATION: US scrotum doppler DATE: 04/14/2025 13:37 INDICATION: Epididymitis with worsening scrotal pain and swelling TECHNIQUE: Testicular sonogram utilizing grayscale and Doppler COMPARISON: None. FINDINGS: The right testis measures 3.7 x 2.1 x 2.6 cm. The left testis measures 3.7 x 2.2 x 2.8 cm. Symmetric normal grayscale appearance to both testes. There is normal vascular flow to both testes. The right e pididymis is normal with normal vascular flow. The left epididymis is normal with normal vascular jenae w. There is no varicocele. There is a small left hydrocele. There is prominent soft tissue edema of t he thickened scrotal wall. IMPRESSION: 1. Nonspecific prominent collateral wall thickening with edema and small left hydrocele. 2. The bilateral testes and epididymides appear normal with normal symmetric vascular flow on color D oppler. Reviewed, dictated and finalized at location A. IMPRESSION: 1. Nonspecific prominent collateral wall thickening with edema and small left hydrocele. 2. The bilateral testes and epididymides appear normal with normal symmetric va scular flow on color Doppler.
--- NOTE | 2025-04-14 12:34 | ECG_ITS ---
Test Date: 2025-04-14 12:35:32 Measurements Intervals [place] Rate: 137 P: 0 [place]: 0 QRS: -9 QRSD: 137 T: 31 QT: 332 QTc: 502 Interpretive Statements SINUS TACHYCARDIA WITH ATRIAL PREMATURE COMPLEX RIGHT BUNDLE BRANCH BLOCK ABNORMAL ECG No previous ECG available for comparison Electronically Signed On 04-14-2025 12:52:12 CDT by Morris Burkett D.O.
[2025-04-14] MEDS: LACTATED RINGERS 1,000 ML 999 ML IV CONT ×3 (12:51)
[2025-04-14] MEDS: LACTATED RINGERS 800 ML 999 ML IV CONT (12:52)
[2025-04-14] MEDS: HYDROmorphone HCL INJ (*CRX) 2 MG/ML VIAL 0.5 MG IV PUSH (12:52)
[2025-04-14 12:56] LABS: Eosinophils Percent Auto 0.4 % (0-4.4); Hematocrit 42.4 % (42.0-52.0); Immature Granulocyte Absolute 0.77 K/mm3 (0.00-0.031); Immature Granulocyte Percent A 7.7 % (0-0.5); Immature Platelet Fraction Pct 7.5 % (0.9-11.2); Lymphocytes Absolute Auto 0.15 K/mm3 (0.9-3.2); Lymphocytes Percent Auto 1.5 % (18.3-44.2); Mean Corpuscular HGB Conc 35.4 g/dl (32-36); Mean Corpuscular Hemoglobin 29.5 pg (26-34); Mean Corpuscular Volume 83.5 fl (80-100); Mean Platelet Volume 11.1 fl (7.4-10.4); Monocytes Absolute Auto 0.2 K/mm3 (0.1-0.6); Monocytes Percent Auto 2.3 % (2.6-8.5); Neutrophils Absolute Auto 8.8 K/mm3 (1.3-6.7); Neutrophils Percent Auto 88.1 % (45.5-73.1); Platelet Count Result 132 k/mm3 (150-375); Red Blood Count 5.08 M/mm3 (4.6-6.20); Red Cell Distribution Width 12.1 % (11.5-14.5)
[2025-04-14 13:07] LABS: Alanine Aminotransferase 106 U/L (6-50); Albumin Level 3.7 g/dL (3.5-5.1); Alkaline Phosphatase 82 U/L (38-126); Anion Gap 16 mmol/L (4-12); Aspartate Amino Transferase 76 U/L (17-59); Bilirubin,Total 4.4 mg/dL (0.2-1.3); Blood Urea Nitrogen 38 mg/dL (9-20); Calcium 8.2 mg/dL (8.4-10.2); Carbon Dioxide 16 mmol/L (22-30); Chloride 95 mmol/L (98-107); Estimated CRCL calculation 64 ml/min; Estimated Glomerular Filt Rate 42; Glucose 143 mg/dL (65-110); Sodium 127 mmol/L (137-145); Total Protein 6.8 g/dL (6.3-8.2)
[2025-04-14 13:10] LABS: Lactic Acid Reflex 4.5 mmol/L (0.7-2.0)
[2025-04-14] MEDS: ONDANSETRON INJ 4 MG/2 ML VIAL IV PUSH ×2 (13:19→21:42)
--- OUTSIDE RECORDS SUMMARY | 2025-04-14 13:33 | XMS_ITS | Clinical Summary ---
Author Organization [facility] Address [address] [place] [address] Care Team Providers Care Oil Operator Name Role Phone Gloria Keane MD Primary Care Provider +1- [phone] Allergies Active Allergy Reactions Criticality Noted Date [...] patient's age to complete this topic Insurance [facility] CHOICE PLUS [facility] HMO/PPO Address: [facility] [address] [place] [address] Care Teams Oil Operator Relationship Specialty Start Date End Date Gloria Keane MD [facility] [place] [address] PCP - General Family Medicine 05/14/23
--- OUTSIDE RECORDS SUMMARY | 2025-04-14 13:33 | XMS_ITS | Referral Summary ---
Author Organization [facility] Address [address] [place] [address] Care Team Providers Care Voice And Data Technician Name Role Phone Gloria Keane MD Primary Care Provider +1- [phone] Allergies Active Allergy Reactions Criticality Noted Date [...] Plan of Treatment Not on file Insurance [facility] CHO[facility] H[facility]/PPO Address: [facility] [id number] [place] [address] Care Teams Voice And Data Technician Relationship Specialty Start Date End Date Gloria Keane MD [address] [place] [address] [place] [address] PCP - General Family Medicine 05/14/23
--- OUTSIDE RECORDS SUMMARY | 2025-04-14 13:33 | XMS_ITS | Data Portability ---
Author Organization [place] - [employer], Main Office Address [address] [place] [address] Assessment No assessment recorded. Plan of Treatment Reminders Order Date Submit Date Provider Last Modified By Organization Details Last Modified Time Details Appointments Follow Up 15 2024 07:30A MONTEZ Santiago Not available Not available Not available Lab vitamin D, 25-hydrox y, total, serum 2024 025 [email or web address], [address], [address], [place], [address], 03/18/2025 08:07:25 cobalamin and folate panel, serum 2024 025 [email or web address], [address], [address], [place], [address], 03/18/2025 08:07:25 PSA, serum or plasma 2024 025 [email or web address], [address], [address], [place], [address], 03/18/2025 08:07:24 noninvasi ve colorecta l cancer DNA + occult blood screening , QL, stool 2024 025 [facility] (Cologuard Orders Only), Caridad E Roc Mehta, [address], [place], [address], 03/18/2025 08:07:24 CBC w/ auto diff 2024 025 SALIMA [facility], [address], [address], [place], [address], 03/12/2025 10:26:36 CMP, serum or plasma 2024 025 [email or web address], [address], [address], [place], [address], 03/18/2025 08:07:24 TSH, ultra-sen sitive, serum 2024 025 [email or web address] [facility], [address], [address], [place], [address], 03/18/2025 08:07:25 lipid panel, serum 2024 025 [email or web address], [address], [address], [place], [address], 03/18/2025 08:07:25 HbA1c (hemoglob in A1c), blood 2024 025 [email or web address], [address], [address], [place], [address], 03/18/2025 08:07:25 Referral dermatolo gist referral - Please call patient to schedule an appointme nt. Thank you. 2024 025 [facility], [address] [place] [address], [place], [address], 03/17/2025 18:18:05 ophthalmo logist referral 2022 023 [email or web address] Oleg Wiseman MD, [address] [facility], [place], [address], 02/09/2023 13:27:36 Procedures None recorded. Surgeries None recorded. Imaging None recorded. Medication Orders cetirizin e 10 mg tablet 2024 025 [facility], [address], [place], [address], 03/11/2025 09:19:59 amlodipin e 10 mg tablet 2024 025 [facility] [address], [address] [place], [address], 01/10/2025 09:01:05 atenolol 50 mg tablet [address], [address] [place], [address], 03/11/2025 08:55:41 atenolol 100 mg tablet 2024 025 [facility] [address], [address] [place], [address], 01/10/2025 09:01:05 metoprolo l tartrate 25 mg tablet [address] [facility] [address], [address] [place], [address], 03/11/2025 08:55:57 amlodipin e 10 mg tablet 2023 024 [facility] [address], [address] [place], [address], 10/22/2024 09:46:17 Patient TargetsNo targets recorded. Patient InstructionsNo instructions recorded. 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 Referring Physician: [facility], Encounter Date: 01/06/2023 Mason Liner Referral for C yst of face Please [...] w.fda .gov/ medic al-de vices /maurilio yeisonir -[facility] -2019 -covi d-19- emerg ency- use-a torey germain ons-m edica l-dev ices/ vitro -diag nosti cs-eu as# indiv idual -sero logic al Not Available [facility] (Lab) [address] [place], [address], 08/09/2021 11:17:01 08/09/20 21 08/09/2021 SARS- COV-2 (COVI D-19) ANTIG EN signal to cutoff ratio 0.28 0.00-0 .99 Not Available [facility] (Lab) [address] [place], [address], 08/09/2021 11:17:01 03/20/20 25 03/20/2025 COLOG UARD [...] ant featu res) is prese nt. [facility] e that a perso n with [...] of ,00 0 indiv idual s at [facility] risk for color ectal cance r [...] asymp tomat ic indiv idual s at [place] [facility] risk for color ectal cance r. [...] 112:1 016-1 030. TEST DESCR IPTIO N: [place] site algor ithmi c misty sis of [...] years or older , who are at [facility] for color ectal cance r (CRC) . Colog uard has been appro gary for use by the U.[place]. FDA. The perfo rmanc e of Colog uard was estab lishe d in a cross secti onal study of [facility] adult s aged 50-84 . Colog uard [...] of 10,00 0 indiv idual s at [facility] for color ectal cance r who were [...] at www.c oltalau pranav.c om. Not Available [facility] (Cologuard Orders Only) [address], [place], [address], 03/30/2025 00:25:27 Result Notes None recorded. Problems Name Problem SNOMED Code Status Onset Date Resolution Date Notes Provider Name and Address Organization Details Recorded Time Visual disturbance 80520809 Active 2022 Gloria Keane MD [address] [facility], [facility] [address], [place], [address], [employer] 3 10:03:47 Cyst of face 509897148 Completed 202203/11/2025 MONTEZ Reddy [address] [facility], [facility] [address], [place], [address], [employer] 5 09:10:59 Essential hypertensio n 33086358 Active 2023 MONTEZ Reddy [address] [facility], [address], [place], [address], [employer] 4 09:45:14 Allergic rhinitis 59621677 Active 2024 MONTEZ Reddy [address] [facility], [address], [place], [address], [employer] 5 09:08:39 Cyst of face 641103327 Active 2024 MONTEZ Reddy [facility], [address] [address], [place], [address], [employer] 5 09:10:59 Body mass index 30+ - obesity 189146810 Active 2024 MONTEZ Reddy [facility], [address], [place], [address], [employer] 5 09:19:04 Fatigue 39291818 Active 2024 MONTEZ Reddy [facility], [address] [address], [place], [address], [employer] 5 09:19:39 Vitamin D deficiency 91343235 Active 2024 MONTEZ Reddy [facility], [address] [address], [place], [address], [employer] 5 11:16:13 Problem Notes None recorded. Medical Equipment None Reported. Allergies Allergen ID Allergen Name Allergen Category Reaction Reaction Severity Criticality Documentation Date Start Date Code Code System Note Provider Name and Address Organization Details Recorded Time 83801 Product containin g penicilli n (product) medicatio n Not available Not available Not available 01/04/2023 82420 8001 SNOMED Not Available [employer] 3 10:48:01 [...] Address Organization Details Last Updated DateTime 3 319037. 79 g 34.7 kg/m2 185.42 cm 98.1 [degF] 82 /min 97 % 97 % 144 mm[Hg] 100 mm[Hg] STEPHANIE Johnson AR [employer] [facility] [employer] 3 09:51:30 Date Recorded Body height Body mass index (BMI) Body weight Body temperature Heart rate Respiratory rate Oxygen saturation Oxygen saturation in Arterial blood by Pulse oximetry Systolic blood pressure Diastolic blood pressure Provider Name and Address Organization Details Last Updated DateTime 5 185.42 cm 34.4 kg/m2 125684. 61 g 97.3 [degF] 73 /min 20 /min 98 % 98 % 156 mm[Hg] 110 mm[Hg] Elizabeth Torres RN [employer] [facility] [employer] 5 08:48:19 Date Recorded Body height Body mass index (BMI) Body weight Body temperature Heart rate Respiratory rate Oxygen saturation Oxygen saturation in Arterial blood by Pulse oximetry Systolic blood pressure Diastolic blood pressure Provider Name and Address Organization Details Last Updated DateTime 5 185.42 cm 37.9 kg/m2 297873. 46 g 97.3 [degF] 71 /min 24 /min 97 % 97 % 130 mm[Hg] 110 mm[Hg] Elizabeth Torres RN [facility] [employer] [facility] 5 08:58:38 Date Recorded Body mass index (BMI) Body height Oxygen saturation Oxygen saturation in Arterial blood by Pulse oximetry Heart rate Body temperature Body weight Systolic blood pressure Diastolic blood pressure Provider Name and Address Organization Details Last Updated DateTime 1 34 kg/m2 185.42 cm 97 % 97 % 83 /min 96.8 [degF] 270231. 83 g 110 mm[Hg] 90 mm[Hg] Not Available [facility] 3 10:43:24 Date Recorded Body weight Body mass index (BMI) Body height Body temperature Heart rate Respiratory rate Oxygen saturation Oxygen saturation in Arterial blood by Pulse oximetry Systolic blood pressure Diastolic blood pressure Provider Name and Address Organization Details Last Updated DateTime 4 701215. 33 g 35.8 kg/m2 185.42 cm 97.2 [degF] 96 /min 20 /min 97 % 97 % 180 mm[Hg] 120 mm[Hg] Elizabeth Torres RN [facility] [employer] [facility] 4 09:34:18 Social History Question Answer Notes LastModified by Organization Details LastModified Time Tobacco Smoking Status Former Smoker Not Available [facility] 01/04/2023 10:41:48 Do You Have An Advance Directive? No Information not available 10/22/2024 What Is Your Level Of Caffeine Consumption? Occasional Information not available 10/22/2024 In The 14 Days Before Symptom Onset, Have You Had Close Contact With A Laboratory-conf irmed COVID-19 While That Case Was Ill? No [id number] Information not available 01/04/2023 In The 14 Days Before Symptom Onset, Have You Had Close Contact With A Person Who Is Under Investigation For COVID-19 While That Person Was Ill? No [id number].300 [id number] Information not available 01/04/2023 What Type Of [...] Tobacco Do You Smoke? 0.5 PPD [id number] Information not available 01/04/2023 Do You Participate In Social Media? Yes Information not available 10/22/2024 Do You Use Sunscreen Routinely? No Information not available 10/22/2024 How Many Years Have You Smoked Tobacco? 15 [id number].0301 [id number] Information not available 01/04/2023 Have You Recently Traveled Abroad? No Information not available 10/22/2024 Sex: Unknown Functional Status Question Answer Note LastModified by Organizat ion Details LastModified Time Do you use any illicit or recreational drugs? Yes Information not available 10/22/2024 What is your level of alcohol consumption? Occasional [id number] Information not available 01/04/2023 Are you currently employed? 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 None Information not available 10/22/2024 Mental Status Question Answer Note LastModified by Organization D etails LastModified Time Do you feel stressed (tense, restless, nervous, or anxious, or unable to sleep at night)? [id number] Information not available 10/22/2024 Family History Relationship Description Onset Age of this Age Resolved Age Notes LastModified by Organization Details LastModified Time Father No current problems or disability [id number].573 [id number] Not available 01/04/2023 10:42:39 Mother No current problems or disability [id number].272 [id number] Not available 01/04/2023 10:42:39 Medical History Condition Response HYPERTENSION Y ANXIETY DISORDER Y Past Encounters Encounter ID Performer Location Encounter Start Date Encounter Closed Date Diagnosis/Indication Diagnosis SNOMED-CT Code Diagnosis ICD10 Code Diagnosis Note [id number] Gloria Keane MD [facility] [place] [address] [facility] [place] [address] 04/07/2021 00:00:00 04/07/2021 21:33:59 [id number] Gloria Keane MD [facility] [place] [address] [place] [address] [place] [address] 04/28/2021 00:00:00 04/28/2021 09:40:46 [id number] Gloria Keane MD [facility] [place] [address] [place] [address] [place] [address] 01/06/2023 09:46:41 01/06/2023 10:21:04 Visual disturbance 49533969 H53.9 Cyst of face 783327292 R 22.0 Reassuranc e given and has solar lentigo under the cyst. [id number] Clinton Obregon MD [address] [address] [place] [address] 10/22/2024 09:22:56 10/22/2024 09:48:30 Essential hypertension 91407962 I10 Will start [facility] from [facility] $4 listWill follow up in 6 weeks [id number] Clinton Obregon MD [facility] [place] [address] [place] [address] 01/10/2025 08:34:19 01/10/2025 09:06:36 Essential hypertension 33863967 I10 Will start BP log, feels he has white coat syndrome.W ill follow up in 6 weeks [id number] MONTEZ Reddy [address] [address] 03/11/2025 08:42:49 03/11/2025 09:31:10 Allergic rhinitis 75601081 J30.9 Eyes tennille red, itchy Adult heal examination 420003611 Z00.00 [facility] christiano reviewedDi scussed diet and exercisePa tient questions answered Essential hypertension 69088670 I10 Will start BP log, feels he has white coat syndrome.W ill follow up in 6 weeks Cyst of face 940369026 R 22.0 History of surgical removal, has returned Screening for malignant neoplasm of colon 585227073 Z12.11 Screening for malignant neoplasm of prostate 798047239 Z12.5 Body mass index 30+ - obesity 877071722 E66.9 Fatigue 25903399 R53.82 Health Concerns Section Related Observation LastModified by Organization Detai ls LastModified Time None Recorded Concern Status LastModified by Organization Details LastModified Time None Recorded Advance Directives Directive N: Payers Encounter Date Sequence Insurance Name Policy Number Policy Watson Covered Member ID Watson Member ID Guarantor Name 01/06/2023 1 [facility] [id number] [facility] [id number] [facility] 10/22/2024 1 *SELF PAY* [facility] 01/10/2025 1 [employer] [id number] 02 [facility] [id number] F [facility] 03/11/2025 1 [employer] [id number] 02 Edilberto Dela Cruz [id number] F Edilberto Dela Cruz Notes Date Note Type Note Provider Name and Address Organization Details Recorded Time 01/06/2023 text/html 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 Also needs to see an eye doctor. Everything is getting darker. Has blurry vision. His BP is a little high today. His BP are good at home. Took meds today for BP. Gloria Keane MD [address], [address], [place], [address], [facility] 01/06/2023 17:14:34 10/22/2024 text/html Edilberto Dela Cruz is a 49 year old male patient here today for hypertension He has a history of hypertension. He has been taking amlodipine 10 mg PO daily. States he has been spacing these out because he does not have a pending refillHe previously took lisinopril 20-HCTZ 12.5 mg and found this made him nauseous MONTEZ Reddy [address] [employer], [address], [place], [address], [facility] 10/22/2024 09:48:25 01/10/2025 text/html Edilberto Dela Cruz is a 49 year old male patient here today for a hypertension FU He has a history of hypertension. BP on arrival 156/110. States he is symptomaticHe previously took lisinopril 20-HCTZ 12.5 mg and found this made him nauseousCurrently taking amlodipine 10 mg PO daily and metoprolol 25 mg BID MONTEZ Reddy [address] [employer], [facility] [address], [place], [address], [facility] 01/10/2025 09:04:51 03/11/2025 text/html Edilberto Dela Cruz is a 50 year old male patient here today for an annual wellness visit. He has a history of hypertension. This is managed with amlodipine and atenolol History of sebacous cysts of the scalp, has had 4 removed Flu shot: declinesCOVID vaccines: x6Tdap: recommendedColonoscopy : cologuard ordered Lisa Watson, MONTEZ [address] [facility], [facility] [address], [place], [address], [place] [facility] [employer] [facility] 03/11/2025 09:23:20
[2025-04-14] MEDS: POTASSIUM CHLORIDE INJ 40 MEQ in SODIUM CHLORIDE 0.9% IV 500 ML 130 MEQ IVPB (14:22)
[2025-04-14] MEDS: DOXYCYCLINE 100 MG/NS 100 ML 100 MG/100 ML BAG IVPB (14:42)
[2025-04-14 14:51] LABS: Reflex Lactic Acid Yes or No Add Lactic
[2025-04-14 15:26] LABS: Basophils Absolute Auto 0.1 K/mm3 (0.0-0.1); Eosinophils Absolute Auto 0.1 K/mm3 (0-0.3); Eosinophils Percent Auto 0.7 % (0-4.4); Hematocrit 35.3 % (42.0-52.0); Immature Granulocyte Absolute 0.08 K/mm3 (0.00-0.031); Immature Platelet Fraction Pct 6.2 % (0.9-11.2); Lymphocytes Percent Auto 1.2 % (18.3-44.2); Mean Corpuscular Hemoglobin 29.5 pg (26-34); Mean Corpuscular Volume 86.7 fl (80-100); Mean Platelet Volume 10.5 fl (7.4-10.4); Monocytes Absolute Auto 0.3 K/mm3 (0.1-0.6); Monocytes Percent Auto 3.1 % (2.6-8.5); Neutrophils Absolute Auto 7.8 K/mm3 (1.3-6.7); Platelet Count Result 100 k/mm3 (150-375); Red Blood Count 4.07 M/mm3 (4.6-6.20); Red Cell Distribution Width 12.1 % (11.5-14.5); White Blood Count 8.4 K/mm3 (4.5-10.0)
[2025-04-14 15:35] LABS: Trichomonas Vag PCR NOT DETECTED (NOT DETECTE)
[2025-04-14] MEDS: HEPARIN SODIUM 5,000 UNITS/ML VIAL 8000 UNITS IV PUSH (15:36)
[2025-04-14 15:37] LABS: Lactic Acid 2.1 mmol/L (0.7-2.0)
[2025-04-14] MEDS: HEPARIN SOD/D5W 100 UNITS/ML 25,000 UNITS/250 ML BAG 15 UNITS IV CONT (15:37)
[2025-04-14 15:43] LABS: INR 1.5; Prothrombin Time 18.2 Seconds (11.1-14.7)
[2025-04-14 15:44] LABS: Partial Thromboplastin Time 41.1 Seconds (22.3-36.8)
--- NOTE | 2025-04-14 15:45 | ECG_ITS ---
Test Date: 2025-04-14 15:47:48 Measurements Intervals [place] Rate: 116 P: 50 [place]: 110 QRS: 5 QRSD: 141 T: 22 QT: 366 QTc: 509 Interpretive Statements SINUS TACHYCARDIA RIGHT BUNDLE BRANCH BLOCK BASELINE ARTIFACT- I, III, AVR, AVL, AVF, V4-V6 ABNORMAL ECG Compared to ECG 04/14/2025 12:35:32 HEART RATE HAS DECREASED Electronically Signed On 04-14-2025 16:13:13 CDT by Morris Burkett D.O.
[2025-04-14 15:57] LABS: Platelet Estimate Decreased (Adequate)
[2025-04-14 15:57] LABS: Chlamydia trachomatis NOT DETECTED (NOT DETECTE); Neisseria gonorrhoeae PCR NOT DETECTED (NOT DETECTE)
[2025-04-14 15:58] LABS: Schistocytes None Seen
--- NOTE | 2025-04-14 16:10 | ED_ITS ---
HPI - General Adult General Chief complaint: Urogenital-Male Stated complaint: my scrotum is very swollen Time Seen by Provider: 04/14/25 12:27 History of Present Illness HPI narrative: This is a 50-year-old male history hypertension presenting ED for testicle pain. Patient says that he may have got a bug bite to his scrotum week ago not gotten progressively more swollen and painful. He has had nausea vomiting and diarrhea. He denies fevers, dysuria chest pain difficulty. He is not concerned for STDs. Patient remote history of anal intercourse but no recent events. Patient was seen here yesterday for same complaint was discharged on ceftriaxone and doxycycline. At that time his urinalysis was positive for infection. Related Data Home Medications ?Medication ?Instructions ?Recorded ?Confirmed ?Last Taken ?Type amlodipine 10 mg tablet 10 mg PO DAILY 05/03/21 Unknown History terbinafine HCl 250 mg tablet 250 mg PO DAILY 05/03/21 Unknown History Allergies Allergy/AdvReac Type Severity Reaction Status Date / Time Penicillins Allergy unknown Verified 04/14/25 12:39 [facility] Past Medical History Medical History Hypertension Social History Social History Alcohol intake: current Substance use: current Exam 2 Narrative: APPEARANCE: No apparent distress. Head: atraumatic. EYES: EOMI, NOSE: Atraumatic NECK: Trachea midline RESPIRATORY: No increased rate of breathing CARDIOVASCULAR: RRR, ABDOMINAL: Non-distended, soft nontender no guarding rebound : Testicles are swollen and edematous tender on the left. Superficial excoriation of the skin. No necrotic regions. Perineum is normal. Normal penis MUSCULOSKELETAl: No obvious deformities NEURO: Alert. Moving 4/4 extremities SKIN:: Warm, dry. Normal color PSYCHIATRIC: Normal affect Course Vital Signs Vital signs: Vital Signs Temperature 98.2 F 04/14/25 12:24 Pulse Rate 150 H 04/14/25 12:24 Respiratory Rate 20 04/14/25 12:24 Blood Pressure 124/96 H 04/14/25 12:24 Pulse Oximetry 97 04/14/25 12:24 Oxygen Delivery Room Air 04/14/25 12:24 Temperature 98.2 F 04/14/25 12:24 Pulse Rate 116 H 04/14/25 15:21 Respiratory Rate 20 04/14/25 15:21 Blood Pressure 131/69 04/14/25 15:21 Pulse Oximetry 98 04/14/25 15:21 Oxygen Delivery Room Air 04/14/25 12:24 Medical Decision Making MDM Narrative Medical decision making narrative: -Course: 50-year-old male presenting with testicle pain and swelling. On arrival patient is tachycardic in the 130s. Initial lactic 4.5. Patient started antibiotics and given 30 cc/kilogram bolus. Ultrasound and CT are consistent with scrotal cellulitis. Repeat scrotal ultrasound did not show epididymitis although the ultrasound from yesterday was interpreted as left epididymitis. Patient started on ceftriaxone and doxy to cover UTI/epididymitis. Vancomycin and for scrotal cellulitis. Patient has failed outpatient therapy Urology was consulted. Patient be admitted hospital for management. -DDX includes but is not limited to: Scrotal cellulitis, epididymitis, Fourneiers gangrene testicular torsion Vital Signs Vital Signs: Vital Signs Temperature 98.2 F 04/14/25 12:24 Pulse Rate 150 H 04/14/25 12:24 Respiratory Rate 20 04/14/25 12:24 Blood Pressure 124/96 H 04/14/25 12:24 Pulse Oximetry 97 04/14/25 12:24 Oxygen Delivery Room Air 04/14/25 12:24 Temperature 98.2 F 04/14/25 12:24 Pulse Rate 116 H 04/14/25 15:21 Respiratory Rate 20 04/14/25 15:21 Blood Pressure 131/69 04/14/25 15:21 Pulse Oximetry 98 04/14/25 15:21 Oxygen Delivery Room Air 04/14/25 12:24 Lab Data 04/14/25 15:14 04/14/25 12:40 Labs: Lab Results 04/14/25 04/14/25 04/14/25 Range/Units 12:40 14:21 15:14 WBC 10.0 8.4 (4.5-10.0) K/mm3 RBC 5.08 4.07 L (4.6-6.20) M/mm3 Hgb 15.0 12.0 L D (14.0-18.0) g/dL Hct 42.4 35.3 L (42.0-52.0) % MCV 83.5 D 86.7 (80-100) fl MCH 29.5 29.5 (26-34) pg MCHC 35.4 34.0 (32-36) g/dl RDW 12.1 12.1 (11.5-14.5) % Plt Count 132 L 100 L (150-375) k/mm3 MPV 11.1 H 10.5 H (7.4-10.4) fl Immature Gran % (Auto) 7.7 H 1.0 H (0-0.5) % Neut % (Auto) 88.1 H 93.0 H (45.5-73.1) % Lymph % (Auto) 1.5 L 1.2 L (18.3-44.2) % [place] % (Auto) 2.3 L 3.1 (2.6-8.5) % Eos % (Auto) 0.4 0.7 (0-4.4) % Baso % (Auto) 0.0 L 1.0 (0.2-1.2) % Lymph # (Auto) 0.15 L 0.10 L (0.9-3.2) K/mm3 [place] # (Auto) 0.2 0.3 (0.1-0.6) K/mm3 Eos # (Auto) 0.0 0.1 (0-0.3) K/mm3 Baso # (Auto) 0.0 0.1 (0.0-0.1) K/mm3 Abs Immat Gran (auto) 0.77 H 0.08 H (0.00-0.031) K/mm3 Absolute Neuts (auto) 8.8 H 7.8 H (1.3-6.7) K/mm3 Absolute Nucleated RBC 0.000 0.000 (0.0-0.012) K/mm3 Band Neutrophils % Not Reportable Nucleated RBC % 0.0 0.0 (0.0-0.2) % Platelet Estimate Decreased (Adequate) % Immature Plt Fraction 7.5 6.2 (0.9-11.2) % Schistocytes None seen PT 18.2 H D (11.1-14.7) Seconds INR 1.5 APTT 41.1 H (22.3-36.8) Seconds Sodium 127 L (137-145) mmol/L Potassium 3.0 L (3.4-5.0) mmol/L Chloride 95 L (98-107) mmol/L Carbon Dioxide 16 L (22-30) mmol/L Anion Gap 16 H (4-12) mmol/L BUN 38 H D (9-20) mg/dL Creatinine 1.74 H (0.7-1.3) mg/dL Estim Creat Clear Calc 64 ml/min Estimated GFR 42 L (59 - ) Glucose 143 H (65-110) mg/dL Lactic Acid 4.5 H* 2.1 H (0.7-2.0) mmol/L Calcium 8.2 L (8.4-10.2) mg/dL Total Bilirubin 4.4 H (0.2-1.3) mg/dL AST 76 H (17-59) U/L ALT 106 H (6-50) U/L Alkaline Phosphatase 82 (38-126) U/L Total Protein 6.8 (6.3-8.2) g/dL Albumin 3.7 (3.5-5.1) g/dL TSH (Reflex) 1.100 (0.465-4.68) uIU/mL C. trachomatis (PCR) Not detected (NOT DETECTE) N. gonorrhoeae (PCR) Not detected (NOT DETECTE) T. vaginalis (PCR) Not detected (NOT DETECTE) Discharge Plan Discharge Clinical Impression: Cellulitis of scrotum Patient Disposition: Still a Patient Condition: Stable Patient Language: Vietnamese Prescriptions: No Action amlodipine 10 mg tablet 10 mg PO DAILY terbinafine HCl 250 mg tablet 250 mg PO DAILY doxycycline hyclate 100 mg tablet 100 mg PO DAILY 10 Days Qty: 10 0RF Follow-up/Referrals: UNKNOWN,DOCTOR [Primary Care Provider] -
--- NOTE | 2025-04-14 16:48 | P.CONUR_ITS ---
Assessment and Plan Assessment and plan (1) Cellulitis of scrotum: Code(s): N49.2 - Inflammatory disorders of scrotum Status: Acute Assessment and Plan: Id current exam is not concerning for soft tissue necrosis. There is edema but moderate erythema and minimal tenderness. Labs show a normal white count but a slightly elevated creatinine and blood sugar. Is being admitted to Medicine for broad-spectrum antibiotics. We will also do serial scrotal exams. At current there is no indication for surgical intervention Urology Consult Note HPI Date Seen: 04/14/25 Requesting Physician: Emergency room Primary Care Provider: UNKNOWN,DOCTOR Consult Narrative Narrative: Edilberto Dela Cruz is a 50 year old male who noticed scrotal swelling over the last few days. He was seen in the emergency room yesterday for scrotal swelling. He underwent a scrotal ultrasound and a CT scan. CT scan showed no necrosis or signs of Homa's gangrene. Ultrasound showed what they read as left epididymitis. He was sent home on p.o. antibiotics. He returns today with increased swelling. It is not particularly painful. He notes no fever but states there was chills at home. Her repeat ultrasound was performed which shows scrotal wall edema and no epididymitis. Repeat CT scan shows scrotal wall edema without gas in the subcutaneous tissues and without drainable fluid collection. I have viewed the CT scan myself. On exam he does have scrotal edema left worse than right. There is some erythema but not intense. There is no crepitus or necrosis. There is nothing to suggest Homa's gangrene. It is minimally tender on exam. He is being admitted to the medicine service for broad-spectrum antibiotics. He does not report diabetes but his blood sugar is somewhat high on BMP. He did have a elevated lactate which has decreased on redraw. His white count is normal. He has no dysuria or signs of urinary tract infection. No new sexual contacts Review of Systems 2 Review of Systems: All systems reviewed & are unremarkable except as noted in HPI and below PMFSH Past Medical History Medical History Hypertension Social History Social History Alcohol intake: current Substance use: current Meds Home Medications and Allergies Home Medications ?Medication ?Instructions ?Recorded ?Confirmed ?Type amlodipine 10 mg tablet 10 mg PO DAILY 05/03/21 History terbinafine HCl 250 mg tablet 250 mg PO DAILY 05/03/21 History doxycycline hyclate 100 mg tablet 100 mg PO DAILY 10 days #10 tabs 04/13/25 Rx Allergies Allergy/AdvReac Type Severity Reaction Status Date / Time Penicillins Allergy unknown Verified 04/14/25 12:39 Vital Signs Vital Signs - 24 hr 04/14/25 12:24 04/14/25 12:35 04/14/25 14:45 Temperature 98.2 F Pulse Rate 150 H 136 H 113 H Respiratory Rate 20 17 24 H Blood Pressure 124/96 H 100/60 131/69 Pulse Oximetry 97 100 98 Oxygen Delivery Room Air 04/14/25 15:07 04/14/25 15:21 Temperature Pulse Rate 111 H 116 H Respiratory Rate 24 H 20 Blood Pressure 131/69 131/69 Pulse Oximetry 99 98 Oxygen Delivery Exam 2 Const: General: cooperative, healthy appearing, no acute distress, well developed, alert, awake and Physically active; No acute distress, in distress, anxious, combative or ill appearing Nutritional Appearance: obese O rientation/consciousness: patient oriented x3 Limitations: no limitations HENMT: Head: normal to inspection Eyes: General: appearance normal, both eyes and all related structures Resp: Effort & Inspection: normal respiratory effort and no cough : Other: Phallus is normal. Circumcised. His bilateral hemiscrotum is swollen and scrotal skin is edematous. Scrotal edema is noted. Left worse than right. It is minimally erythematous. Difficult to palpate intrascrotal structures. It is minimally tender to the touch and he tolerates exam very well. There is no drainable fluid collection. There is no gas or crepitus. There is no necrosis Skin: General skin exam: elasticity normal Neuro: General: patient oriented x3 and moves all extremities Extrem: General: normal to inspection and full ROM Psych: Appearance: grossly normal Results Labs 04/14/25 15:14 04/14/25 12:40 Labs: Short CBC 04/14/25 04/14/25 Range/Units 12:40 15:14 WBC 10.0 8.4 (4.5-10.0) K/mm3 Hgb 15.0 12.0 L D (14.0-18.0) g/dL Hct 42.4 35.3 L (42.0-52.0) % Plt Count 132 L 100 L (150-375) k/mm3 BMP 04/14/25 12:40 Sodium 127 L Potassium 3.0 L Chloride 95 L Carbon Dioxide 16 L BUN 38 H D Creatinine 1.74 H Glucose 143 H Calcium 8.2 L Liver Function 04/14/25 Range/Units 12:40 Total Bilirubin 4.4 H (0.2-1.3) mg/dL AST 76 H (17-59) U/L ALT 106 H (6-50) U/L Alkaline Phosphatase 82 (38-126) U/L Albumin 3.7 (3.5-5.1) g/dL Imaging My impression: I reviewed his CT scan from today myself. There is scrotal edema. There is no drainable fluid collection. There is no gas or crepitus
[2025-04-14] MEDS: VANCOMYCIN 1,500 MG/NS 500 ML 1,500 MG/500 ML BAG 250 MG IVPB (16:58)
--- NOTE | 2025-04-14 18:09 | P.HP_ITS ---
H&P: HPI History of Present Illness Date/Time: 04/14/25 18:09 Chief Complaint: Scrotal pain/swelling, scrotal cellulitis, sepsis Narrative: This is a 50 year old male patient with history of HTN who is admitted to the hospital with scrotal cellulitis. Patient was seen in ER on 04/13 and treated with Rocephin and doxycycline for epididymitis after ultrasound consistent with this finding. Urinalysis on that visit showed 1+ leukocyte esterase, 51-100 wbc's no urine bacteria and negative nitrates. Urine culture is pending. Patient reports that pain worsened so he came back to the emergency department on 04/14 with increased pain and increased swelling. Labs revealed WBC 10, Sodium down to 127 from 136 the prior day, potassium down to 3.0 from 3.6, Carbon dioxide down to 16 form 23. Renal function with same creatinine but increased BUN from 20 to 38. Lactic acid noted at 4.5 and bilirubin increased from 2.1 to 4.4. These labs consistent with sepsis. Patient received nearly 4 liters of IV fluids in ER but remained tachycardic. TSH normal. Repeat lactic acid down to 2.1. STD urine labs negative today. CT scan and repeat scrotal ultrasound today show scrotal wall thickening without free gas or fluid pocket collection. Patient evaluated by Urology in ER and will follow along for repeat scrotal evaluations. Patient received Rocephin, doxycycline and vancomycin in ER. Will continue Vancomycin for now. Heparin and diltiazem was briefly ordered but stopped without patient receiving either medication as initial EKG initially thought to be atrial flutter but later re- evaluated and found to be sinus tach. Review of Systems Review of Systems: All systems reviewed & are unremarkable except as noted in HPI and below [facility] Past Medical History Medical History Hypertension Social History Social History Smoking status: Current some day smoker Tobacco type: e-cigarettes/vaping Additional smoking assessment comments: Vaping Alcohol intake: current Drinks per week: 1 Substance use: current Substance use type: marijuana Last use: 04/09 Do You Feel Safe in your Home?: Yes Lack of Transportation: No Lack of Food: Never True Current Housing: I Have Housing Concerned About Future Housing: No Difficulty Paying Gas/Electric Bills: No Difficulty Paying for Meds: No Currently Unemployed: No Education: High School Diploma/GED Difficulty w/ Childcare or Family Care: No Spiritual care concerns: No Meds Home Medications and Allergies Home Medications ?Medication ?Instructions ?Recorded ?Confirmed ?Type amlodipine 10 mg tablet 10 mg PO DAILY 05/03/21 04/14/25 History doxycycline hyclate 100 mg tablet 100 mg PO DAILY 10 days #10 tabs 04/13/25 04/14/25 Rx Allergies Allergy/AdvReac Type Severity Reaction Status Date / Time Penicillins Allergy unknown Verified 04/14/25 12:39 Vital Signs Vital Signs - 24 hr 04/14/25 12:24 04/14/25 12:25 04/14/25 12:32 Temperature 36.8 C Pulse Rate 150 H 145 H 141 H Respiratory Rate 20 22 H Blood Pressure 124/96 H 100/60 Pulse Oximetry 97 Oxygen Delivery Room Air 04/14/25 12:35 04/14/25 12:46 04/14/25 13:01 Temperature Pulse Rate 136 H 130 H 122 H Respiratory Rate 17 20 14 Blood Pressure 100/60 104/58 L 109/66 Pulse Oximetry 100 98 94 Oxygen Delivery 04/14/25 13:16 04/14/25 14:06 04/14/25 14:31 Temperature Pulse Rate 121 H 116 H 119 H Respiratory Rate 17 35 H 32 H Blood Pressure 120/64 126/72 131/69 Pulse Oximetry 95 96 95 Oxygen Delivery 04/14/25 14:45 04/14/25 15:07 04/14/25 15:15 Temperature Pulse Rate 113 H 111 H 113 H Respiratory Rate 24 H 24 H 27 H Blood Pressure 131/69 131/69 Pulse Oximetry 98 99 95 Oxygen Delivery 04/14/25 15:21 04/14/25 15:30 04/14/25 15:45 Temperature Pulse Rate 116 H 113 H 114 H Respiratory Rate 20 20 27 H Blood Pressure 131/69 Pulse Oximetry 98 100 98 Oxygen Delivery 04/14/25 16:00 04/14/25 16:01 04/14/25 16:46 Temperature Pulse Rate 114 H 115 H 115 H Respiratory Rate 23 H 28 H 29 H Blood Pressure 115/59 L 136/64 Pulse Oximetry 100 100 99 Oxygen Delivery 04/14/25 16:51 04/14/25 17:31 04/14/25 17:45 Temperature Pulse Rate 118 H 121 H 119 H Respiratory Rate 25 H 30 H Blood Pressure 136/64 135/119 H Pulse Oximetry 97 98 Oxygen Delivery Exam Narrative: APPEARANCE: Obvious pain distress noted HEENT: atraumatic, EOMI, PERRL RESPIRATORY: Tachypnea present, patient relates this to increased pain in scrotum CARDIOVASCULAR: tachycardic rate, regular rhythm ABDOMINAL: Non-distended, soft nontender no guarding rebound : Scrotum is swollen and edematous, tender on the left. Superficial excoriation of the skin. No necrotic regions. Perineum is normal. Normal penis MUSCULOSKELETAL: No obvious deformities NEURO: Alert. Moving 4/4 extremities SKIN:: Warm, dry. Subtly jaundiced appearing H&P: Results Labs Labs: Short CBC 04/14/25 04/14/25 Range/Units 12:40 15:14 WBC 10.0 8.4 (4.5-10.0) K/mm3 Hgb 15.0 12.0 L D (14.0-18.0) g/dL Hct 42.4 35.3 L (42.0-52.0) % Plt Count 132 L 100 L (150-375) k/mm3 BMP 04/14/25 12:40 Sodium 127 L Potassium 3.0 L Chloride 95 L Carbon Dioxide 16 L BUN 38 H D Creatinine 1.74 H Glucose 143 H Calcium 8.2 L Liver Function 04/14/25 Range/Units 12:40 Total Bilirubin 4.4 H (0.2-1.3) mg/dL AST 76 H (17-59) U/L ALT 106 H (6-50) U/L Alkaline Phosphatase 82 (38-126) U/L Albumin 3.7 (3.5-5.1) g/dL 7.5 > 1.045?H 3+?H Trace?H Negative Trace Negative Negative 1.0 Reviewed 1+?H 0-2 51-100?H None seen None seen >20 1-2?H Pulse Oximetry SpO2 results: 95-100% on room air Attestation: I personally reviewed and interpreted this pulse oximetry as follows: Interpretation: no need for supplemental oxygenation at this time ECG Attestation: I personally reviewed and interpreted this ECG as follows: ECG completion date: 04/14/25 ECG completion time: 15:47 Prior ECG tracings: available for review Interpretation: sinus tachycardia rate 116, AR 110, QRSd 141-right bundle branch block, QTC 509- slightly prolonged, QRS axis 5, No STEMI Imaging CT scan - pelvis: Radiologist's impression: EXAMINATION: CT pelvis w con DATE: 04/14/2025 13:48 INDICATION: Severe testicular pain and swelling TECHNIQUE: Computed tomography (CT) of the pelvis was performed with 100 mL Omnipaque-350 intravenous contrast. Automated exposure control and iterative reconstruction technique were employed.The dose-length product was 1118.84 mGy- cm. COMPARISON: 04/13/2025 FINDINGS: Visualized portions of bowels including the appendix are normal. Bladder is normal. No free fluid or gas within the pelvis or visualized lower abdomen. Bilateral small fat-containing inguinal hernias. There is prominent scrotal edema. Enhancement is seen at the bilateral testes and epididymides. Small bilateral hydroceles, left greater than right. Prominent scrotal edema with hyperemia suggestive of cellulitis. No abscess or evident soft tissue gas to suggest necrotizing fasciitis. No pathologically enlarged pelvic or inguinal lymphadenopathy. Mild degenerative skeletal changes in the pelvis and visualized lower lumbar spine. IMPRESSION: 1. Small bilateral hydroceles with prominent scrotal edema including some associated hyperemia consistent with cellulitis. No evident abscess or soft tissue gas to suggest active fasciitis which is ultimately a clinical diagnosis. Reviewed, dictated and finalized at location A. US scrotum 04/13 and 04/14: Radiologist's impression: EXAMINATION: US scrotum doppler DATE: 04/14/2025 13:37 INDICATION: Epididymitis with worsening scrotal pain and swelling TECHNIQUE: Testicular sonogram utilizing grayscale and Doppler COMPARISON: None. FINDINGS: The right testis measures 3.7 x 2.1 x 2.6 cm. The left testis measures 3.7 x 2.2 x 2.8 cm. Symmetric normal grayscale appearance to both testes. There is normal vascular flow to both testes. The right epididymis is normal with normal vascular flow. The left epididymis is normal with normal vascular flow. There is no varicocele. There is a small left hydrocele. There is prominent soft tissue edema of the thickened scrotal wall. IMPRESSION: 1. Nonspecific prominent collateral wall thickening with edema and small left hydrocele. 2. The bilateral testes and epididymides appear normal with normal symmetric vascular flow on color Doppler. Reviewed, dictated and finalized at location A. Testicular ultrasound with doppler. Indication: Torsion. Technique: Real-time sonography the scrotum was performed. Color flow Doppler and Doppler spectral analysis were performed. Findings: The testes are homogeneous in echotexture bilaterally. There is no evidence of an intratesticular mass. The right testis measures 3.8 x 2.1 x 2.9 c m and the left 3.4 x 2.3 x 2.4 cm. There is color-flow seen to both testes. Arterial and venous spectral waveforms are seen in both testes. There is no sonographic evidence of torsion. Suggestion of heterogeneous enlargement of the mid to distal left epididymis with somewhat asymmetric left scrotal wall thickening/edema. Impression: Findings suggestive of left epididymitis with associated left scrotal wall thickening/edema. No testicular mass or torsion. Reviewed, dictated and finalized at location M. CT scan - abdomen: Radiologist's impression: CT of the Abdomen and Pelvis: Indication: Scrotal erythema and swelling Technique: 2.5 mm axial scans were obtained through the abdomen and pelvis following intravenous administration of 100 cc of Omnipaque 350. Dose reduction technique was used on this scan by utilizing automated exposure control and iterative reconstruction technique. The dose-length product (DLP) was 1619.43 mGy-cm. Findings: Scans through the lung bases are unremarkable. The liver, spleen, pancreas, gallbladder, adrenals and kidneys are within normal limits. No evidence of aortic aneurysm. No lymphadenopathy. Questionable minimal wall thickening of several small bowel loops. Relatively fluid-filled large bowel present. Images through the pelvis were performed. Urinary bladder unremarkable. No pelvic mass. No ascites. There is diffuse scrotal edema noted. Impression: Questionable nonspecific enterocolitis. Diffuse scrotal soft tissue edema, nonspecific. Reviewed, dictated and finalized at [facility]. Assessment and Plan Assessment and plan (1) Cellulitis of scrotum: Code(s): N49.2 - Inflammatory disorders of scrotum Status: Acute Assessment and Plan: -Worsened despite doxycycline and Rocephin 04/13 -US and CT show thickened skin without gangrene -Urology evaluated patient in ER -Patient received 4 liters IV fluids for sepsis bolus, remains tachycardic -Urine culture sent 04/13 -Received Rocephin/doxycycline and vancomycin in ER -Vancomycin will be continued (2) Sepsis: Code(s): A41.9 - Sepsis, unspecified organism Status: Acute Assessment and Plan: -See above -Lactic acid improved from 4.5 to 2.1 after IV fluids -Elevated bilirubin likely due to sepsis as well (3) Hypertension: Code(s): I10 - Essential (primary) hypertension Status: Acute Assessment and Plan: -Continue home medications (4) Hyponatremia: Code(s): E87.1 - Hypo-osmolality and hyponatremia Status: Acute Assessment and Plan: -Sodium 127 on chemistry panel in ER on 04/14, was 136 on 04/13 ER visit -Likely SIADH due to pain -Patient received nearly 4 liters of LR bolus in ER and 500 mL potassium in NACL -Repeat labs in AM (5) Hypokalemia: Code(s): E87.6 - Hypokalemia Status: Acute Assessment and Plan: -Potassium 3.0 in ER today -IV 40 mEq given, repeat labs in AM (6) Abnormal urinalysis: Code(s): R82.90 - Unspecified abnormal findings in urine Status: Acute Assessment and Plan: -Urine culture pending from 04/13 ER visit, not repeated today -WBC 51-100 and leukocyte esterase present -Received Rocephin on both 04/13 and 04/14 in ER (7) Kidney disease: Code(s): N28.9 - Disorder of kidney and ureter, unspecified Status: Acute Assessment and Plan: -No labs prior to 04/13 available but renal dysfunction noted on both 04/13 and 04/14 labs -Cr 1.7, eGFR 42 and estimated CrCl 64 on both 04/13 and 04/14 labs -Recheck in AM after fluid boluses -Consider Nephrology consult if worsening of renal function or sodium levels Quality VTE Prophylaxis VTE prophylaxis: mechanical ordered Hospitalist MIPS Advance Care Plan I have confirmed that the patient's Advanced Care Plan is present, code status is documented, or surrogate decision maker is listed in patient medical record.: Yes Medication Reconciliation I have utilized all available resources to obtain, update and review the patients current medications (includes all prescriptions, OTC, herbals, cannabis, and nutritional supplements).: Yes
--- NOTE | 2025-04-14 18:21 | ADMGEN ---
This patient, Edilberto Dela Cruz, was admitted to Medical Room 344-01. Patient/family oriented to hospital policies and general routines including ID bracelet, bed and alarms, visiting hours, pain management, procedures, bathroom and other care routines, personal items, smoking policy, room service/diet, and visiting hours. Information on how to activate the Rapid Response Team has been discussed. Patient/Family are encouraged to report perceived risks to care and to ask questions if they do not understand what they are told or what they should do.
[2025-04-14] MEDS: HYDROmorphone HCL INJ (*CRX) 2 MG/ML VIAL 1 MG IV PUSH (21:42)
[2025-04-15] VITALS (10 sets, daily range): BP systolic 112–152; BP diastolic 52–71; PULSE 81–111; RESP 18–20; TEMP 36.8–37.2; O2SAT 98–99
[2025-04-15] MEDS: HYDROmorphone HCL INJ (*CRX) 2 MG/ML VIAL 1 MG IV PUSH ×4 (02:12→17:14)
[2025-04-15] MEDS: VANCOMYCIN 1,500 MG/NS 500 ML 1,500 MG/500 ML BAG 250 MG IVPB ×2 (04:40→17:09)
[2025-04-15 04:45] LABS: Eosinophils Absolute Auto 0.1 K/mm3 (0-0.3); Eosinophils Percent Auto 1.5 % (0-4.4); Hematocrit 35.7 % (42.0-52.0); Hemoglobin 12.4 g/dL (14.0-18.0); Immature Granulocyte Absolute 0.04 K/mm3 (0.00-0.031); Immature Granulocyte Percent A 0.5 % (0-0.5); Immature Platelet Fraction Pct 7.3 % (0.9-11.2); Lymphocytes Absolute Auto 0.12 K/mm3 (0.9-3.2); Lymphocytes Percent Auto 1.5 % (18.3-44.2); Mean Corpuscular HGB Conc 34.7 g/dl (32-36); Mean Corpuscular Hemoglobin 29.6 pg (26-34); Mean Corpuscular Volume 85.2 fl (80-100); Mean Platelet Volume 10.8 fl (7.4-10.4); Monocytes Absolute Auto 0.3 K/mm3 (0.1-0.6); Monocytes Percent Auto 3.1 % (2.6-8.5); Neutrophils Absolute Auto 7.7 K/mm3 (1.3-6.7); Neutrophils Percent Auto 93.4 % (45.5-73.1); Platelet Count Result 93 k/mm3 (150-375); Red Blood Count 4.19 M/mm3 (4.6-6.20); Red Cell Distribution Width 12.5 % (11.5-14.5); White Blood Count 8.3 K/mm3 (4.5-10.0)
[2025-04-15 05:20] LABS: Procalcitonin 39.8 ng/mL
[2025-04-15 05:31] LABS: Alanine Aminotransferase 65 U/L (6-50); Albumin Level 2.7 g/dL (3.5-5.1); Alkaline Phosphatase 71 U/L (38-126); Anion Gap 11 mmol/L (4-12); Aspartate Amino Transferase 40 U/L (17-59); Bilirubin,Total 2.6 mg/dL (0.2-1.3); Blood Urea Nitrogen 28 mg/dL (9-20); Calcium 7.4 mg/dL (8.4-10.2); Carbon Dioxide 18 mmol/L (22-30); Chloride 102 mmol/L (98-107); Estimated CRCL calculation 89 ml/min; Estimated Glomerular Filt Rate > 60; Glucose 108 mg/dL (65-110); Magnesium 1.4 mg/dL (1.6-2.3); Potassium 3.2 mmol/L (3.4-5.0); Sodium 131 mmol/L (137-145); Total Protein 5.4 g/dL (6.3-8.2)
[2025-04-15 05:43] LABS: CRP 29.9 mg/dL (<1.0)
[2025-04-15 05:48] LABS: Erythrocyte Sedimentation Rate 50 mm/hr (0-20)
[2025-04-15] MEDS: amLODIPine BESYLATE 10 MG TABLET PO (08:17)
--- NOTE | 2025-04-15 09:41 | P.PNIM_ITS ---
Progress Note: A&P Assessment and Plan (1) Cellulitis of scrotum: Code(s): N49.2 - Inflammatory disorders of scrotum Status: Acute Assessment and Plan: -Worsened despite doxycycline and Rocephin 04/13 -US and CT show thickened skin without gangrene -Urology evaluated patient in ER -Patient received 4 liters IV fluids for sepsis bolus, remains tachycardic -Urine culture sent 04/13-pending -Received Rocephin/doxycycline and vancomycin in ER -Vancomycin will be continued - urology was consulted and no acute intervention is recommended - continue antibiotcs -may need i/d - will be npo at midnight just in case if intervention needed -added rocephin (2) Sepsis: Code(s): A41.9 - Sepsis, unspecified organism Status: Acute Assessment and Plan: -See above -Lactic acid improved from 4.5 to 2.1 after IV fluids -Elevated bilirubin likely due to sepsis as well - bc, urine cultures collected (3) Hypertension: Code(s): I10 - Essential (primary) hypertension Status: Acute Assessment and Plan: -Continue home medications (4) Hyponatremia: Code(s): E87.1 - Hypo-osmolality and hyponatremia Status: Acute Assessment and Plan: -Sodium 127 on chemistry panel in ER on 04/14, was 136 on 04/13 ER visit -Likely SIADH due to pain -Patient received nearly 4 liters of LR bolus in ER and 500 mL potassium in NACL trend labs (5) Hypokalemia: Code(s): E87.6 - Hypokalemia Status: Acute Assessment and Plan: -Potassium 3.0 in ER today -IV 40 mEq given, repeat labs in AM (6) Abnormal urinalysis: Code(s): R82.90 - Unspecified abnormal findings in urine Status: Acute Assessment and Plan: -Urine culture pending from 04/13 ER visit, not repeated today -WBC 51-100 and leukocyte esterase present -Received Rocephin on both 04/13 and 04/14 in ER (7) Kidney disease: Code(s): N28.9 - Disorder of kidney and ureter, unspecified Status: Acute Assessment and Plan: -No labs prior to 04/13 available but renal dysfunction noted on both 04/13 and 04/14 labs -Cr 1.7, eGFR 42 and estimated CrCl 64 on both 04/13 and 04/14 labs -Recheck in AM after fluid boluses -Consider Nephrology consult if worsening of renal function or sodium levels Time Spent With Patient Time with patient: 25 - 35 minutes Subjective Date/time seen: 04/15/25 09:41 Interval history: Scrotal pain/swelling, scrotal cellulitis, sepsis Retrieved from H/P: 50 year old male patient with history of HTN who is admitted to the hospital with scrotal cellulitis. Patient was seen in ER on 04/13 and treated with Rocephin and doxycycline for epididymitis after ultrasound consistent with this finding. Urinalysis on that visit showed 1+ leukocyte esterase, 51-100 wbc's no urine bacteria and negative nitrates. Urine culture is pending. Patient reports that pain worsened so he came back to the emergency department on 04/14 with increased pain and increased swelling. Labs revealed WBC 10, Sodium down to 127 from 136 the prior day, potassium down to 3.0 from 3.6, Carbon dioxide down to 16 form 23. Renal function with same creatinine but increased BUN from 20 to 38. Lactic acid noted at 4.5 and bilirubin increased from 2.1 to 4.4. These labs consistent with sepsis. Patient received nearly 4 liters of IV fluids in ER but remained tachycardic. TSH normal. Repeat lactic acid down to 2.1. STD urine labs negative today. CT scan and repeat scrotal ultrasound today show scrotal wall thickening without free gas or fluid pocket collection. Patient evaluated by Urology in ER and will follow along for repeat scrotal evaluations. Patient received Rocephin, doxycycline and vancomycin in ER. Will continue Vancomycin for now. Heparin and diltiazem was briefly ordered but stopped without patient receiving either medication as initial EKG initially thought to be atrial flutter but later re- evaluated and found to be sinus tach. Pt is seen and examined. Urology saw pt and no acute intervention is needed. pain is controlled Review of Systems Review of Systems: All systems reviewed & are unremarkable except as noted in HPI and below Exam Narrative: APPEARANCE: Obvious pain distress noted HEENT: atraumatic, EOMI, PERRL RESPIRATORY: Tachypnea present, patient relates this to increased pain in scrotum CARDIOVASCULAR: tachycardic rate, regular rhythm ABDOMINAL: Non-distended, soft nontender no guarding rebound : Scrotum is swollen and edematous, tender. Superficial excoriation of the skin. No necrotic regions. MUSCULOSKELETAL: No obvious deformities NEURO: Alert. Moving 4/4 extremities SKIN:: Warm, dry. Subtly jaundiced appearing Const: General: comfortable Objective Data Vital Signs Vital Signs: Vital Signs - 24 hr 04/14/25 12:24 04/14/25 12:25 04/14/25 12:32 Temperature 98.2 F Pulse Rate 150 H 145 H 141 H Respiratory Rate 20 22 H Blood Pressure 124/96 H 100/60 Pulse Oximetry 97 Oxygen Delivery Room Air 04/14/25 12:35 04/14/25 12:46 04/14/25 13:01 Temperature Pulse Rate 136 H 130 H 122 H Respiratory Rate 17 20 14 Blood Pressure 100/60 104/58 L 109/66 Pulse Oximetry 100 98 94 Oxygen Delivery 04/14/25 13:16 04/14/25 14:06 04/14/25 14:31 Temperature Pulse Rate 121 H 116 H 119 H Respiratory Rate 17 35 H 32 H Blood Pressure 120/64 126/72 131/69 Pulse Oximetry 95 96 95 Oxygen Delivery 04/14/25 14:45 04/14/25 15:07 04/14/25 15:15 Temperature Pulse Rate 113 H 111 H 113 H Respiratory Rate 24 H 24 H 27 H Blood Pressure 131/69 131/69 Pulse Oximetry 98 99 95 Oxygen Delivery 04/14/25 15:21 04/14/25 15:30 04/14/25 15:45 Temperature Pulse Rate 116 H 113 H 114 H Respiratory Rate 20 20 27 H Blood Pressure 131/69 Pulse Oximetry 98 100 98 Oxygen Delivery 04/14/25 16:00 04/14/25 16:01 04/14/25 16:46 Temperature Pulse Rate 114 H 115 H 115 H Respiratory Rate 23 H 28 H 29 H Blood Pressure 115/59 L 136/64 Pulse Oximetry 100 100 99 Oxygen Delivery 04/14/25 16:51 04/14/25 17:31 04/14/25 17:45 Temperature Pulse Rate 118 H 121 H 119 H Respiratory Rate 25 H 30 H Blood Pressure 136/64 135/119 H Pulse Oximetry 97 98 Oxygen Delivery 04/14/25 18:34 04/14/25 20:00 04/14/25 22:28 Temperature 99.1 F Pulse Rate 112 H 115 H Respiratory Rate 20 Blood Pressure 109/49 L Pulse Oximetry 99 Oxygen Delivery Room Air 04/14/25 23:51 04/15/25 00:00 04/15/25 04:00 Temperature 98.7 F Pulse Rate 111 H 111 H 81 Respiratory Rate 20 Blood Pressure 116/67 Pulse Oximetry 98 Oxygen Delivery 04/15/25 05:35 04/15/25 07:43 04/15/25 08:00 Temperature 98.9 F Pulse Rate 107 H 106 H Respiratory Rate 20 Blood Pressure 114/62 Pulse Oximetry 98 98 Oxygen Delivery Room Air 04/15/25 08:00 Temperature 98.8 F Pulse Rate 103 H Respiratory Rate 18 Blood Pressure 134/57 L Pulse Oximetry 99 Oxygen Delivery Intake/Output Intake/Output: Intake & Output 04/12/25 04/13/25 04/14/25 04/15/25 23:59 23:59 23:59 23:59 Intake Total 4451 1690 Output Total 600 900 Balance 3851 790 Meds/Results Medications: Active Medications Generic Name Dose Route Start Last Admin Trade Name Freq PRN Reason Stop Dose Admin Acetaminophen 650 mg 04/14/25 21:18 Acetaminophen 325 Mg Tablet PO Q4H PRN Mild Pain (1-3) or Fever Hydrocodone Bitart/Acetaminophen 1 tab 04/14/25 21:18 Hydrocodone/Acetaminophen (*Crx) 5-325 Mg Tablet PO Q4H PRN Pain Rated 4-6 Amlodipine Besylate 10 mg 04/15/25 09:00 04/15/25 08:17 Amlodipine Besylate 10 Mg Tablet PO 10 mg DAILY JENNIFER Administration Hydromorphone HCl 1 mg 04/14/25 21:18 04/15/25 06:13 Hydromorphone Hcl Inj (*Crx) 2 Mg/Ml Vial IV PUSH 1 mg Q4H PRN Administration Pain Rated 7-10 Vancomycin HCl 1,500 mg in 500 mls @ 250 mls/hr 04/14/25 17:00 04/15/25 06:45 Vancomycin 1,500 Mg/Ns 500 Ml IVPB Infused Q12H JENNIFER Infusion Ondansetron HCl 4 mg 04/14/25 21:18 04/14/25 21:42 Ondansetron Inj 4 Mg/2 Ml Vial IV PUSH 4 mg Q4H PRN Administration Nausea And Vomiting Radiology Results: ITS Impressions Scrotum Ultrasound 04/14/25 15:01 IMPRESSION: 1. Nonspecific prominent collateral wall thickening with edema and small left hydrocele. 2. The bilateral testes and epididymides appear normal with normal symmetric vascular flow on color Doppler. Pelvis CT 04/14/25 15:39 IMPRESSION: 1. Small bilateral hydroceles with prominent scrotal edema including some associated hyperemia consistent with cellulitis. No evident abscess or soft t issue gas to suggest active fasciitis which is ultimately a clinical diagnosis. Labs Labs: Laboratory Results - last 24 hr 04/14/25 04/14/25 04/14/25 12:40 14:21 15:14 WBC 10.0 8.4 RBC 5.08 4.07 L Hgb 15.0 12.0 L D Hct 42.4 35.3 L MCV 83.5 D 86.7 MCH 29.5 29.5 MCHC 35.4 34.0 RDW 12.1 12.1 Plt Count 132 L 100 L MPV 11.1 H 10.5 H Immature Gran % (Auto) 7.7 H 1.0 H Neut % (Auto) 88.1 H 93.0 H Lymph % (Auto) 1.5 L 1.2 L [place] % (Auto) 2.3 L 3.1 Eos % (Auto) 0.4 0.7 Baso % (Auto) 0.0 L 1.0 Lymph # (Auto) 0.15 L 0.10 L [place] # (Auto) 0.2 0.3 Eos # (Auto) 0.0 0.1 Baso # (Auto) 0.0 0.1 Abs Immat Gran (auto) 0.77 H 0.08 H Absolute Neuts (auto) 8.8 H 7.8 H Absolute Nucleated RBC 0.000 0.000 Band Neutrophils % Not Reportable Nucleated RBC % 0.0 0.0 Platelet Estimate Decreased % Immature Plt Fraction 7.5 6.2 Schistocytes None seen ESR PT 18.2 H D INR 1.5 APTT 41.1 H Sodium 127 L Potassium 3.0 L Chloride 95 L Carbon Dioxide 16 L Anion Gap 16 H BUN 38 H D Creatinine 1.74 H Estim Creat Clear Calc 64 Estimated GFR 42 L Glucose 143 H Lactic Acid 4.5 H* 2.1 H Calcium 8.2 L Magnesium Total Bilirubin 4.4 H AST 76 H ALT 106 H Alkaline Phosphatase 82 C-Reactive Protein Total Protein 6.8 Albumin 3.7 Procalcitonin TSH (Reflex) 1.100 C. trachomatis (PCR) Not detected N. gonorrhoeae (PCR) Not detected T. vaginalis (PCR) Not detected 04/15/25 04:29 WBC 8.3 RBC 4.19 L Hgb 12.4 L Hct 35.7 L MCV 85.2 MCH 29.6 MCHC 34.7 RDW 12.5 Plt Count 93 L MPV 10.8 H Immature Gran % (Auto) 0.5 Neut % (Auto) 93.4 H Lymph % (Auto) 1.5 L [place] % (Auto) 3.1 Eos % (Auto) 1.5 Baso % (Auto) 0.0 L Lymph # (Auto) 0.12 L [place] # (Auto) 0.3 Eos # (Auto) 0.1 Baso # (Auto) 0.0 Abs Immat Gran (auto) 0.04 H Absolute Neuts (auto) 7.7 H Absolute Nucleated RBC 0.000 Band Neutrophils % Nucleated RBC % 0.0 Platelet Estimate % Immature Plt Fraction 7.3 Schistocytes ESR 50 H PT INR APTT Sodium 131 L Potassium 3.2 L Chloride 102 Carbon Dioxide 18 L Anion Gap 11 BUN 28 H D Creatinine 1.23 Estim Creat Clear Calc 89 Estimated GFR > 60 Glucose 108 Lactic Acid Calcium 7.4 L Magnesium 1.4 L Total Bilirubin 2.6 H AST 40 ALT 65 H Alkaline Phosphatase 71 C-Reactive Protein 29.9 H Total Protein 5.4 L Albumin 2.7 L Procalcitonin 39.8 TSH (Reflex) C. trachomatis (PCR) N. gonorrhoeae (PCR) T. vaginalis (PCR) Quality VTE Prophylaxis VTE prophylaxis: mechanical ordered
--- NOTE | 2025-04-15 11:50 | P.PNUR_ITS ---
Progress Note: A&P Assessment and Plan (1) Cellulitis of scrotum: Code(s): N49.2 - Inflammatory disorders of scrotum Status: Acute Assessment and Plan: At this point will continue to follow. May declare itself over next 24-48 hours. If fluctuance develops will needs I&D. Will make NPO after midnight just in case needs intervention. Will re-evaluate in am. Subjective Subjective Date/Time Seen: 04/15/25 11:50 Principal diagnosis: scrotal cellulitis Interval history: Feels slightly better today. Review of Systems Review of Systems: All systems reviewed & are unremarkable except as noted in HPI and below Exam Const: General: cooperative and comfortable Resp: Effort & Inspection: normal respiratory effort Cardio: Rate: regular rate Rhythm: regular rhythm : Scrotum: edematous (area softening superiorly. No discrete fluctuance at this time. ) Objective Data Vital Signs Vital Signs: Vital Signs - 24 hr 04/14/25 12:24 04/14/25 12:25 04/14/25 12:32 Temperature 36.8 C Pulse Rate 150 H 145 H 141 H Respiratory Rate 20 22 H Blood Pressure 124/96 H 100/60 Pulse Oximetry 97 Oxygen Delivery Room Air 04/14/25 12:35 04/14/25 12:46 04/14/25 13:01 Temperature Pulse Rate 136 H 130 H 122 H Respiratory Rate 17 20 14 Blood Pressure 100/60 104/58 L 109/66 Pulse Oximetry 100 98 94 Oxygen Delivery 04/14/25 13:16 04/14/25 14:06 04/14/25 14:31 Temperature Pulse Rate 121 H 116 H 119 H Respiratory Rate 17 35 H 32 H Blood Pressure 120/64 126/72 131/69 Pulse Oximetry 95 96 95 Oxygen Delivery 04/14/25 14:45 04/14/25 15:07 04/14/25 15:15 Temperature Pulse Rate 113 H 111 H 113 H Respiratory Rate 24 H 24 H 27 H Blood Pressure 131/69 131/69 Pulse Oximetry 98 99 95 Oxygen Delivery 04/14/25 15:21 04/14/25 15:30 04/14/25 15:45 Temperature Pulse Rate 116 H 113 H 114 H Respiratory Rate 20 20 27 H Blood Pressure 131/69 Pulse Oximetry 98 100 98 Oxygen Delivery 04/14/25 16:00 04/14/25 16:01 04/14/25 16:46 Temperature Pulse Rate 114 H 115 H 115 H Respiratory Rate 23 H 28 H 29 H Blood Pressure 115/59 L 136/64 Pulse Oximetry 100 100 99 Oxygen Delivery 04/14/25 16:51 04/14/25 17:31 04/14/25 17:45 Temperature Pulse Rate 118 H 121 H 119 H Respiratory Rate 25 H 30 H Blood Pressure 136/64 135/119 H Pulse Oximetry 97 98 Oxygen Delivery 04/14/25 18:34 04/14/25 20:00 04/14/25 22:28 Temperature 37.3 C Pulse Rate 112 H 115 H Respiratory Rate 20 Blood Pressure 109/49 L Pulse Oximetry 99 Oxygen Delivery Room Air 04/14/25 23:51 04/15/25 00:00 04/15/25 04:00 Temperature 37.1 C Pulse Rate 111 H 111 H 81 Respiratory Rate 20 Blood Pressure 116/67 Pulse Oximetry 98 Oxygen Delivery 04/15/25 05:35 04/15/25 07:43 04/15/25 08:00 Temperature 37.2 C Pulse Rate 107 H 106 H Respiratory Rate 20 Blood Pressure 114/62 Pulse Oximetry 98 98 Oxygen Delivery Room Air 04/15/25 08:00 Temperature 37.1 C Pulse Rate 103 H Respiratory Rate 18 Blood Pressure 134/57 L Pulse Oximetry 99 Oxygen Delivery Intake/Output Intake/Output: Intake & Output 04/12/25 04/13/25 04/14/25 04/15/25 23:59 23:59 23:59 23:59 Intake Total 4451 1690 Output Total 600 900 Balance 3851 790 Meds/Results Medications: Active Medications Generic Name Dose Route Start Last Admin Trade Name Freq PRN Reason Stop Dose Admin Acetaminophen 650 mg 04/14/25 21:18 Acetaminophen 325 Mg Tablet PO Q4H PRN Mild Pain (1-3) or Fever Hydrocodone Bitart/Acetaminophen 1 tab 04/14/25 21:18 Hydrocodone/Acetaminophen (*Crx) 5-325 Mg Tablet PO Q4H PRN Pain Rated 4-6 Amlodipine Besylate 10 mg 04/15/25 09:00 04/15/25 08:17 Amlodipine Besylate 10 Mg Tablet PO 10 mg DAILY JENNIFER Administration Hydromorphone HCl 1 mg 04/14/25 21:18 04/15/25 11:01 Hydromorphone Hcl Inj (*Crx) 2 Mg/Ml Vial IV PUSH 1 mg Q4H PRN Administration Pain Rated 7-10 Vancomycin HCl 1,500 mg in 500 mls @ 250 mls/hr 04/14/25 17:00 04/15/25 06:45 Vancomycin 1,500 Mg/Ns 500 Ml IVPB Infused Q12H JENNIFER Infusion Ondansetron HCl 4 mg 04/14/25 21:18 04/14/25 21:42 Ondansetron Inj 4 Mg/2 Ml Vial IV PUSH 4 mg Q4H PRN Administration Nausea And Vomiting Radiology Results: ITS Impressions Scrotum Ultrasound 04/14/25 15:01 IMPRESSION: 1. Nonspecific prominent collateral wall thickening with edema and small left hydrocele. 2. The bilateral testes and epididymides appear normal with normal symmetric vascular flow on color Doppler. Pelvis CT 04/14/25 15:39 IMPRESSION: 1. Small bilateral hydroceles with prominent scrotal edema including some associated hyperemia consistent with cellulitis. No evident abscess or soft tissue gas to suggest active fasciitis which is ultimately a clinical diagnosis. Labs Labs: Laboratory Results - last 24 hr 04/14/25 04/14/25 04/14/25 12:40 14:21 15:14 WBC 10.0 8.4 RBC 5.08 4.07 L Hgb 15.0 12.0 L D Hct 42.4 35.3 L MCV 83.5 D 86.7 MCH 29.5 29.5 MCHC 35.4 34.0 RDW 12.1 12.1 Plt Count 132 L 100 L MPV 11.1 H 10.5 H Immature Gran % (Auto) 7.7 H 1.0 H Neut % (Auto) 88.1 H 93.0 H Lymph % (Auto) 1.[address] [place] % (Auto) 2.3 L 3.1 Eos % (Auto) 0.4 0.7 Baso % (Auto) 0.0 L 1.0 Lymph # (Auto) 0.[address] [place] # (Auto) 0.2 0.3 Eos # (Auto) 0.0 0.1 Baso # (Auto) 0.0 0.1 Abs Immat Gran (auto) 0.77 H 0.08 H Absolute Neuts (auto) 8.8 H 7.8 H Absolute Nucleated RBC 0.000 0.000 Band Neutrophils % Not Reportable Nucleated RBC % 0.0 0.0 Platelet Estimate Decreased % Immature Plt Fraction 7.5 6.2 Schistocytes None seen ESR PT 18.2 H D INR 1.5 APTT 41.1 H Sodium 127 L Potassium 3.0 L Chloride 95 L Carbon Dioxide 16 L Anion Gap 16 H BUN 38 H D Creatinine 1.74 H Estim Creat Clear Calc 64 Estimated GFR 42 L Glucose 143 H Lactic Acid 4.5 H* 2.1 H Calcium 8.2 L Magnesium Total Bilirubin 4.4 H AST 76 H ALT 106 H Alkaline Phosphatase 82 C-Reactive Protein Total Protein 6.8 Albumin 3.7 Procalcitonin TSH (Reflex) 1.100 C. trachomatis (PCR) Not detected N. gonorrhoeae (PCR) Not detected T. vaginalis (PCR) Not detected 04/15/25 04:29 WBC 8.3 RBC 4.19 L Hgb 12.4 L Hct 35.7 L MCV 85.2 MCH 29.6 MCHC 34.7 RDW 12.5 Plt Count 93 L MPV 10.8 H Immature Gran % (Auto) 0.5 Neut % (Auto) 93.4 H Lymph % (Auto) 1.[address] [place] % (Auto) 3.1 Eos % (Auto) 1.5 Baso % (Auto) 0.0 L Lymph # (Auto) 0.[address] [place] # (Auto) 0.3 Eos # (Auto) 0.1 Baso # (Auto) 0.0 Abs Immat Gran (auto) 0.04 H Absolute Neuts (auto) 7.7 H Absolute Nucleated RBC 0.000 Band Neutrophils % Nucleated RBC % 0.0 Platelet Estimate % Immature Plt Fraction 7.3 Schistocytes ESR 50 H PT INR APTT Sodium 131 L Potassium 3.2 L Chloride 102 Carbon Dioxide 18 L Anion Gap 11 BUN 28 H D Creatinine 1.23 Estim Creat Clear Calc 89 Estimated GFR > 60 Glucose 108 Lactic Acid Calcium 7.4 L Magnesium 1.4 L Total Bilirubin 2.6 H AST 40 ALT 65 H Alkaline Phosphatase 71 C-Reactive Protein 29.9 H Total Protein 5.4 L Albumin 2.7 L Procalcitonin 39.8 TSH (Reflex) C. trachomatis (PCR) N. gonorrhoeae (PCR) T. vaginalis (PCR)
[2025-04-15] MEDS: POTASSIUM CHLORIDE 20 MEQ PACKET (FOR LIQUID) 40 MEQ PO (17:10)
[2025-04-15] MEDS: MAGNESIUM OXIDE 400 MG TABLET PO (17:10)
[2025-04-15] MEDS: HYDROcodone/acetaminophen (*CRX) 5-325 MG TABLET 1 TAB PO (19:18)
[2025-04-16] VITALS (20 sets, daily range): BP systolic 91–128; BP diastolic 56–74; PULSE 70–101; RESP 12–22; TEMP 36.1–37.2; O2SAT 92–100
[2025-04-16] MEDS: HYDROcodone/acetaminophen (*CRX) 5-325 MG TABLET 1 TAB PO ×4 (01:14→23:57)
[2025-04-16 04:07] LABS: Basophils Absolute Auto 0.1 K/mm3 (0.0-0.1); Basophils Percent Auto 0.6 % (0.2-1.2); Eosinophils Absolute Auto 0.2 K/mm3 (0-0.3); Hematocrit 33.7 % (42.0-52.0); Hemoglobin 11.8 g/dL (14.0-18.0); Immature Granulocyte Absolute 0.13 K/mm3 (0.00-0.031); Immature Granulocyte Percent A 1.5 % (0-0.5); Immature Platelet Fraction Pct 7.6 % (0.9-11.2); Lymphocytes Absolute Auto 0.56 K/mm3 (0.9-3.2); Lymphocytes Percent Auto 6.3 % (18.3-44.2); Mean Corpuscular Hemoglobin 29.5 pg (26-34); Mean Corpuscular Volume 84.3 fl (80-100); Mean Platelet Volume 11.2 fl (7.4-10.4); Monocytes Absolute Auto 0.4 K/mm3 (0.1-0.6); Monocytes Percent Auto 4.8 % (2.6-8.5); Neutrophils Absolute Auto 7.6 K/mm3 (1.3-6.7); Neutrophils Percent Auto 84.8 % (45.5-73.1); Platelet Count Result 86 k/mm3 (150-375); Red Cell Distribution Width 12.8 % (11.5-14.5)
[2025-04-16] MEDS: ONDANSETRON INJ 4 MG/2 ML VIAL IV PUSH (04:16)
[2025-04-16 04:34] LABS: Alanine Aminotransferase 58 U/L (6-50); Albumin Level 2.7 g/dL (3.5-5.1); Alkaline Phosphatase 84 U/L (38-126); Anion Gap 7 mmol/L (4-12); Aspartate Amino Transferase 42 U/L (17-59); Bilirubin,Total 3.8 mg/dL (0.2-1.3); Blood Urea Nitrogen 17 mg/dL (9-20); Calcium 7.8 mg/dL (8.4-10.2); Carbon Dioxide 21 mmol/L (22-30); Chloride 105 mmol/L (98-107); Estimated CRCL calculation 120 ml/min; Estimated Glomerular Filt Rate > 60; Glucose 113 mg/dL (65-110); Magnesium 2.2 mg/dL (1.6-2.3); Potassium 3.2 mmol/L (3.4-5.0); Sodium 133 mmol/L (137-145); Total Protein 5.5 g/dL (6.3-8.2)
[2025-04-16 04:38] LABS: Erythrocyte Sedimentation Rate 59 mm/hr (0-20)
[2025-04-16 04:48] LABS: Vancomycin Trough 9.5 ug/mL (10.0-20.0)
[2025-04-16 04:53] LABS: CRP 21.8 mg/dL (<1.0)
[2025-04-16 05:00] LABS: Procalcitonin 21.2 ng/mL
[2025-04-16] MEDS: VANCOMYCIN 1,750 MG/NS 500 ML 1,750 MG/500 ML BAG 200 MG IVPB (06:04)
--- NOTE | 2025-04-16 06:21 | ECG_ITS ---
Test Date: 2025-04-16 06:35:11 Measurements Intervals [place] Rate: 92 P: 63 AR: 140 QRS: 1 QRSD: 150 T: 28 QT: 430 QTc: 532 Interpretive Statements SINUS RHYTHM RIGHT BUNDLE BRANCH BLOCK ABNORMAL ECG Compared to ECG 04/14/2025 15:47:48 HEART RATE HAS DECREASED Electronically Signed On 04-16-2025 07:05:13 CDT by Morris Burkett D.O.
--- NOTE | 2025-04-16 08:16 | WPDUROPN2 ---
Progress Note: A&P Assessment and Plan (1) Cellulitis of scrotum: Code(s): N49.2 - Inflammatory disorders of scrotum Status: Acute Assessment and Plan: Appearance has worsened despite a normal white count and lack of fever. There are 2 areas of fluctuance bilaterally. Will plan on I and D of this scrotal abscess/fluctuance (2) Scrotal abscess: Code(s): N49.2 - Inflammatory disorders of scrotum Status: Acute Subjective Subjective Date/Time Seen: 04/16/25 08:16 Interval history: Seems to be a little bit worse today. Although no white count or fever his scrotal area is now oozing Review of Systems Review of Systems: All systems reviewed & are unremarkable except as noted in HPI and below Exam Const: General: cooperative; No comfortable Resp: Effort & Inspection: normal respiratory effort Cardio: Rate: regular rate Rhythm: regular rhythm : Scrotum: edematous (Has a couple areas of fluctuance bilaterally anteriorly.) and erythematous Objective Data Vital Signs Vital Signs: Vital Signs - 24 hr 04/15/25 12:00 04/15/25 13:35 04/15/25 16:00 Temperature 37.2 C Pulse Rate 106 H 107 H 108 H Respiratory Rate 18 Blood Pressure 114/57 L Pulse Oximetry 98 04/15/25 16:00 04/15/25 20:30 04/15/25 21:37 Temperature 36.8 C Pulse Rate 101 H 97 99 Respiratory Rate 18 20 Blood Pressure 112/52 L 152/71 H Pulse Oximetry 99 98 04/16/25 00:00 04/16/25 04:00 04/16/25 06:00 Temperature 36.7 C Pulse Rate 101 H 96 95 Respiratory Rate 20 Blood Pressure 128/56 L Pulse Oximetry 98 Intake/Output Intake/Output: Intake & Output 04/13/25 04/14/25 04/15/25 04/16/25 23:59 23:59 23:59 23:59 Intake Total 4451 2910 500 Output Total 600 2100 1600 Balance 3851 810 -1100 Meds/Results Medications: Active Medications Generic Name Dose Route Start Last Admin Trade Name Freq PRN Reason Stop Dose Admin Acetaminophen 650 mg 04/14/25 21:18 Acetaminophen 325 Mg Tablet PO Q4H PRN Mild Pain (1-3) or Fever Hydrocodone Bitart/Acetaminophen 1 tab 04/14/25 21:18 04/16/25 05:01 Hydrocodone/Acetaminophen (*Crx) 5-325 Mg Tablet PO 1 tab Q4H PRN Administration Pain Rated 4-6 Amlodipine Besylate 10 mg 04/15/25 09:00 04/15/25 08:17 Amlodipine Besylate 10 Mg Tablet PO 10 mg DAILY JENNIFER Administration Atenolol 100 mg 04/16/25 09:00 Atenolol 50 Mg Tablet PO 0900 JENNIFER Hydromorphone HCl 1 mg 04/14/25 21:18 04/15/25 17:14 Hydromorphone Hcl Inj (*Crx) 2 Mg/Ml Vial IV PUSH 1 mg Q4H PRN Administration Pain Rated 7-10 Ceftriaxone Sodium 2 gm in 100 mls @ 200 mls/hr 04/16/25 14:00 Rocephin 2 Gm/Ns 100 Ml IVPB Q24H JENNIFER Vancomycin HCl 1,750 mg in 500 mls @ 250 mls/hr 04/16/25 06:00 04/16/25 06:04 Vancomycin 1,750 Mg/Ns 500 Ml IVPB 200 mls/hr Q12H JENNIFER Administration Loratadine 10 mg 04/16/25 09:00 Loratadine 10 Mg Tablet PO 0900 JENNIFER Magnesium Oxide 400 mg 04/15/25 15:25 04/15/25 17:10 Magnesium Oxide 400 Mg Tablet PO 400 mg DAILY JENNIFER Administration Ondansetron HCl 4 mg 04/14/25 21:18 04/16/25 04:16 Ondansetron Inj 4 Mg/2 Ml Vial IV PUSH 4 mg Q4H PRN Administration Nausea And Vomiting Potassium Chloride 40 meq 04/15/25 15:25 04/15/25 17:10 Potassium Chloride 20 Meq Packet (For Liquid) PO 40 meq DAILY JENNIFER Administration Radiology Results: ITS Impressions Scrotum Ultrasound 04/14/25 15:01 IMPRESSION: 1. Nonspecific prominent collateral wall thickening with edema and small left hydrocele. 2. The bilateral testes and epididymides appear normal with normal symmetric vascular flow on color Doppler. Pelvis CT 04/14/25 15:39 IMPRESSION: 1. Small bilateral hydroceles with prominent scrotal edema including some associated hyperemia consistent with cellulitis. No evident abscess or soft tissue gas to suggest active fasciitis which is ultimately a clinical diagnosis. Labs Labs: Laboratory Results - last 24 hr 04/16/25 03:57 WBC 9.0 RBC 4.00 L Hgb 11.8 L Hct 33.7 L MCV 84.3 MCH 29.5 MCHC 35.0 RDW 12.8 Plt Count 86 L MPV 11.2 H Immature Gran % (Auto) 1.5 H Neut % (Auto) 84.8 H Lymph % (Auto) 6.3 L [place] % (Auto) 4.8 Eos % (Auto) 2.0 Baso % (Auto) 0.6 Lymph # (Auto) 0.56 L [place] # (Auto) 0.4 Eos # (Auto) 0.2 Baso # (Auto) 0.1 Abs Immat Gran (auto) 0.13 H Absolute Neuts (auto) 7.6 H Absolute Nucleated RBC 0.000 Nucleated RBC % 0.0 % Immature Plt Fraction 7.6 ESR 59 H Sodium 133 L Potassium 3.2 L Chloride 105 Carbon Dioxide 21 L Anion Gap 7 BUN 17 D Creatinine 0.90 Estim Creat Clear Calc 120 Estimated GFR > 60 Glucose 113 H Calcium 7.8 L Magnesium 2.2 Total Bilirubin 3.8 H AST 42 ALT 58 H Alkaline Phosphatase 84 C-Reactive Protein 21.8 H Total Protein 5.5 L Albumin 2.7 L Procalcitonin 21.2 Vancomycin Trough 9.5 L
--- NOTE | 2025-04-16 08:18 | WPDHPUPDATE1 ---
History and Physical Update Update Date/Time: 04/16/25 08:18 History and Physical has been reviewed, including an updated exam of the patient. There are NO changes in the patient's condition. Risks, benefits, and alternatives have been discussed and questions answered. Patient agrees to proceed with procedure. Proceed with I and D of scrotal abscess
[2025-04-16] MEDS: amLODIPine BESYLATE 10 MG TABLET PO (08:43)
[2025-04-16] MEDS: atenoloL 50 MG TABLET 100 MG PO (08:43)
[2025-04-16] MEDS: NEOMYCIN/POLYMYXIN/BACITRACIN OINTMENT PACKET 1 PACKET (08:44)
[2025-04-16] MEDS: MAGNESIUM OXIDE 400 MG TABLET PO (08:44)
[2025-04-16] MEDS: fentaNYL CITRATE INJ (*CRX) 100 MCG/2 ML VIAL 50 MCG IV PUSH (09:30)
[2025-04-16] MEDS: LACTATED RINGERS 1,000 ML 30 ML IV CONT ×2 (09:30→10:59)
--- NOTE | 2025-04-16 09:59 | WPDANESEPP ---
Anes - Eval Pre Procedure Procedure: Operation Date: 04/16/25 10:00 Proposed Procedures p Incision And Drainage Scrotal Abscess - Boo Posadas MD Date/Time: 04/16/25 09:59 Pre Op Diagnosis: scrotal cellulitis Patient Data Age: 50 Gender: M Height: 1.85 m Weight: 126.4 kg Last Vital Signs Temp 98.2 F 04/16/25 09:47 Pulse 92 04/16/25 09:47 Resp 16 04/16/25 09:47 BP 91/60 L 04/16/25 09:47 Pulse Ox 98 04/16/25 09:47 O2 Del Method Room Air 04/16/25 09:47 Allergies Allergy/AdvReac Type Severity Reaction Status Date / Time Penicillins Allergy unknown Verified 04/14/25 12:39 Home Medications ?Medication ?Instructions ?Recorded ?Confirmed ?Type amlodipine 10 mg tablet 10 mg PO DAILY 05/03/21 04/14/25 History doxycycline hyclate 100 mg tablet 100 mg PO DAILY 10 days #10 tabs 04/13/25 04/14/25 Rx atenolol 100 mg tablet 100 mg PO Q24H 04/15/25 04/15/25 History cetirizine 10 mg tablet 10 mg PO DAILY PRN allergy symptoms 04/15/25 04/15/25 History Laboratory Tests 04/16/25 03:57 WBC 9.0 K/mm3 (4.5-10.0) RBC 4.00 L M/mm3 (4.6-6.20) Hgb 11.8 L g/dL (14.0-18.0) Hct 33.7 L % (42.0-52.0) MCV 84.3 fl (80-100) MCH 29.5 pg (26-34) MCHC 35.0 g/dl (32-36) RDW 12.8 % (11.5-14.5) Plt Count 86 L k/mm3 (150-375) MPV 11.2 H fl (7.4-10.4) Immature Gran % (Auto) 1.5 H % (0-0.5) Neut % (Auto) 84.8 H % (45.5-73.1) Lymph % (Auto) 6.3 L % (18.3-44.2) [place] % (Auto) 4.8 % (2.6-8.5) Eos % (Auto) 2.0 % (0-4.4) Baso % (Auto) 0.6 % (0.2-1.2) Lymph # (Auto) 0.56 L K/mm3 (0.9-3.2) [place] # (Auto) 0.4 K/mm3 (0.1-0.6) Eos # (Auto) 0.2 K/mm3 (0-0.3) Baso # (Auto) 0.1 K/mm3 (0.0-0.1) Abs Immat Gran (auto) 0.13 H K/mm3 (0.00-0.031) Absolute Neuts (auto) 7.6 H K/mm3 (1.3-6.7) Absolute Nucleated RBC 0.000 K/mm3 (0.0-0.012) Nucleated RBC % 0.0 % (0.0-0.2) % Immature Plt Fraction 7.6 % (0.9-11.2) ESR 59 H mm/hr (0-20) Sodium 133 L mmol/L (137-145) Potassium 3.2 L mmol/L (3.4-5.0) Chloride 105 mmol/L (98-107) Carbon Dioxide 21 L mmol/L (22-30) Anion Gap 7 mmol/L (4-12) BUN 17 D mg/dL (9-20) Creatinine 0.90 mg/dL (0.7-1.3) Estim Creat Clear Calc 120 ml/min Estimated GFR > 60 (59 - ) Glucose 113 H mg/dL (65-110) Calcium 7.8 L mg/dL (8.4-10.2) Magnesium 2.2 mg/dL (1.6-2.3) Total Bilirubin 3.8 H mg/dL (0.2-1.3) AST 42 U/L (17-59) ALT 58 H U/L (6-50) Alkaline Phosphatase 84 U/L (38-126) C-Reactive Protein 21.8 H mg/dL (<1.0) Total Protein 5.5 L g/dL (6.3-8.2) Albumin 2.7 L g/dL (3.5-5.1) Procalcitonin 21.2 ng/mL Vancomycin Trough 9.5 L ug/mL (10.0-20.0) Patient hx anesthesia problems: none Family hx anesthesia problems: none Results Review: All pre-operative results and documents have been reviewed as part of the pre-operative evaluation. [facility] Past Medical History Medical History (Updated 04/16/25 @ 10:07 by Too Severino Jr., CRNA) Marijuana abuse Vapes nicotine containing substance Sepsis Hypokalemia Scrotal abscess Hypertension Social History Social History Smoking status: Current some day smoker Tobacco type: e-cigarettes/vaping Additional smoking assessment comments: Vaping Alcohol intake: current Drinks per week: 1 Substance use: current Substance use type: marijuana Last use: 04/09 Do You Feel Safe in your Home?: Yes Lack of Transportation: No Lack of Food: Never True Current Housing: I Have Housing Concerned About Future Housing: No Difficulty Paying Gas/Electric Bills: No Difficulty Paying for Meds: No Currently Unemployed: No Education: High School Diploma/GED Difficulty w/ Childcare or Family Care: No Spiritual care concerns: No Exam Day of Procedure 04/16/25 09:59 Patient weight: obese Heart: regular rate and rhythm Lungs: clear to auscultation Airway: Mallampati scale class III and special considerations poor dentition Neurological: alert and oriented Risks: ASA 3 E Gen ETT standard monitoring
--- NOTE | 2025-04-16 10:06 | PM.IMPN ---
Progress Note: A&P Assessment and Plan (1) Cellulitis of scrotum: Code(s): N49.2 - Inflammatory disorders of scrotum Status: Acute Assessment and Plan: -Worsened despite doxycycline and Rocephin 04/13 -US and CT show thickened skin without gangrene -Urology evaluated patient in ER -Patient received 4 liters IV fluids for sepsis bolus, remains tachycardic -Urine culture sent 04/13-pending -Received Rocephin/doxycycline and vancomycin in ER -Vancomycin will be continued - urology was consulted and no acute intervention is recommended - continue antibiotcs 04/16: I&D performed, per uro, erythematous and sloughy appearance with not a lot of pus -Per uro Dr. Posadas, vanc and ceftriaxone may have been making his cellulitis worse. Talked to ID pharm and decision was made to switch abx to Zyvox (Linezolid). -If does better on Zyvox, will likely switch over to Bactrim x7-10 days pending culture -Uro to continue to follow (2) Sepsis: Code(s): A41.9 - Sepsis, unspecified organism Status: Acute Assessment and Plan: -See above -Lactic acid improved from 4.5 to 2.1 after IV fluids -Elevated bilirubin likely due to sepsis as well -Blood cultures pending, urine cultures negative, wound culture pending -BP have been soft today: 91/60 - 110/71, will continue to monitor (3) Hypertension: Code(s): I10 - Essential (primary) hypertension Status: Acute Assessment and Plan: -Continue home medications with parameters for hypotension (4) Hyponatremia: Code(s): E87.1 - Hypo-osmolality and hyponatremia Status: Acute Assessment and Plan: -Sodium 127 on chemistry panel in ER on 04/14, was 136 on 04/13 ER visit -Likely SIADH due to pain -Patient received nearly 4 liters of LR bolus in ER and 500 mL potassium in NACL -Continue to trend labs daily -->04/16: 133 (5) Hypokalemia: Code(s): E87.6 - Hypokalemia Status: Acute Assessment and Plan: -Potassium 3.0 in ED -IV 40 mEq given, repeat labs in AM -->04/16: 3.2 -Continue daily suppl (6) Abnormal urinalysis: Code(s): R82.90 - Unspecified abnormal findings in urine Status: Acute Assessment and Plan: -Urine culture WDL from ED visit 04/13 -WBC 51-100 and leukocyte esterase present -Received Rocephin on both 04/13 and 04/14 in ER (7) Kidney disease: Code(s): N28.9 - Disorder of kidney and ureter, unspecified Status: Acute Assessment and Plan: -No labs prior to 04/13 available but renal dysfunction noted on both 04/13 and 04/14 labs -Cr 1.7, eGFR 42 and estimated CrCl 64 on both 04/13 and 04/14 labs -->Have since normalized -Recheck in AM after fluid boluses -Consider Nephrology consult if worsening of renal function or sodium levels Plan Surgery today, trend labs, sepsis, abx, and pain again tomorrow. Uro continue to follow. Increase diet as tolerated. Subjective Date/time seen: 04/16/25 1336 Interval history: Scrotal pain/swelling, scrotal cellulitis, sepsis Retrieved from H/P: 50 year old male patient with history of HTN who is admitted to the hospital with scrotal cellulitis. Patient was seen in ER on 04/13 and treated with Rocephin and doxycycline for epididymitis after ultrasound consistent with this finding. Urinalysis on that visit showed 1+ leukocyte esterase, 51-100 wbc's no urine bacteria and negative nitrates. Urine culture is pending. Patient reports that pain worsened so he came back to the emergency department on 04/14 with increased pain and increased swelling. Labs revealed WBC 10, Sodium down to 127 from 136 the prior day, potassium down to 3.0 from 3.6, Carbon dioxide down to 16 form 23. Renal function with same creatinine but increased BUN from 20 to 38. Lactic acid noted at 4.5 and bilirubin increased from 2.1 to 4.4. These labs consistent with sepsis. Patient received nearly 4 liters of IV fluids in ER but remained tachycardic. TSH normal. Repeat lactic acid down to 2.1. STD urine labs negative today. CT scan and repeat scrotal ultrasound today show scrotal wall thickening without free gas or fluid pocket collection. Patient evaluated by Urology in ER and will follow along for repeat scrotal evaluations. Patient received Rocephin, doxycycline and vancomycin in ER. Will continue Vancomycin for now. Heparin and diltiazem was briefly ordered but stopped without patient receiving either medication as initial EKG initially thought to be atrial flutter but later re-evaluated and found to be sinus tach. Pt is seen and examined. Urology saw pt and no acute intervention is needed. pain is controlled 04/16: Pt was seen post I&D of the scrotum. Pt reports that he is starting to feel pain post surgery, but the overall pressure around his scrotum is better. Per uro Dr. Posadas, vanc and ceftriaxone may have been making his cellulitis worse. Talked to ID pharm and decision was made to switch abx to Zyvox (Linezolid). Pt working on liquid and will advance diet as tolerated. Review of Systems Review of Systems: All systems reviewed & are unremarkable except as noted in HPI and below Exam Const: General: no acute distress Other: Disheveled appearance HENMT: Face/Nose/Sinus: Normal nares present Other: tacky mucus membranes Eyes: General: appearance normal, both eyes and all related structures Sclera: sclerae normal Neck: Neck: supple and no JVD Carotids: no bruits Resp: Effort & Inspection: normal respiratory effort Auscultation: clear to auscultation bilaterally Cardio: Rate: regular rate Rhythm: regular rhythm GI: Inspection: non-distended : Other: Surgical dressing with packing to scrotum, C/D/I\ Skin: General skin exam: normal color and no rashes or lesions noted Neuro: Speech: normal speech Motor exam (neuro): Normal motor muscle tone present throughout Sensory Exam: normal sensation Extrem: General: normal to inspection and no edema Psych: Mental Status: mental status grossly normal Affect: normal affect Objective Data Vital Signs Vital Signs: Vital Signs - 24 hr 04/15/25 12:00 04/15/25 13:35 04/15/25 16:00 Temperature 98.9 F Pulse Rate 106 H 107 H 108 H Respiratory Rate 18 Blood Pressure 114/57 L Pulse Oximetry 98 Oxygen Delivery 04/15/25 16:00 04/15/25 20:30 04/15/25 21:37 Temperature 98.2 F Pulse Rate 101 H 97 99 Respiratory Rate 18 20 Blood Pressure 112/52 L 152/71 H Pulse Oximetry 99 98 Oxygen Delivery 04/16/25 00:00 04/16/25 04:00 04/16/25 06:00 Temperature 98.1 F Pulse Rate 101 H 96 95 Respiratory Rate 20 Blood Pressure 128/56 L Pulse Oximetry 98 Oxygen Delivery 04/16/25 08:00 04/16/25 08:43 04/16/25 09:47 Temperature 98.2 F Pulse Rate 95 92 Respiratory Rate 16 Blood Pressure 91/60 L Pulse Oximetry 98 Oxygen Delivery Room Air Room Air Intake/Output Intake/Output: Intake & Output 04/13/25 04/14/25 04/15/25 04/16/25 23:59 23:59 23:59 23:59 Intake Total 4451 2910 500 Output Total 600 2100 1600 Balance 3851 810 -1100 Meds/Results Medications: Active Medications Generic Name Dose Route Start Last Admin Trade Name Freq PRN Reason Stop Dose Admin Acetaminophen 650 mg 04/14/25 21:18 Acetaminophen 325 Mg Tablet PO Q4H PRN Mild Pain (1-3) or Fever Hydrocodone Bitart/Acetaminophen 1 tab 04/14/25 21:18 04/16/25 05:01 Hydrocodone/Acetaminophen (*Crx) 5-325 Mg Tablet PO 1 tab Q4H PRN Administration Pain Rated 4-6 Amlodipine Besylate 10 mg 04/15/25 09:00 04/16/25 08:43 Amlodipine Besylate 10 Mg Tablet PO 10 mg DAILY JENNIFER Administration Atenolol 100 mg 04/16/25 09:00 04/16/25 08:43 Atenolol 50 Mg Tablet PO 100 mg 0900 [facility] Administration Hydromorphone HCl 1 mg 04/14/25 21:18 04/15/25 17:14 Hydromorphone Hcl Inj (*Crx) 2 Mg/Ml Vial IV PUSH 1 mg Q4H PRN Administration Pain Rated 7-10 Ceftriaxone Sodium 2 gm in 100 mls @ 200 mls/hr 04/16/25 14:00 Rocephin 2 Gm/Ns 100 Ml IVPB Q24H JENNIFER Vancomycin HCl 1,750 mg in 500 mls @ 250 mls/hr 04/16/25 06:00 04/16/25 06:04 Vancomycin 1,750 Mg/Ns 500 Ml IVPB 200 mls/hr Q12H JENNIFER Administration Loratadine 10 mg 04/16/25 09:00 04/16/25 08:56 Loratadine 10 Mg Tablet PO Not Given 09 JENNIFER Magnesium Oxide 400 mg 04/15/25 15:25 04/16/25 08:44 Magnesium Oxide 400 Mg Tablet PO 400 mg DAILY JENNIFER Administration Ondansetron HCl 4 mg 04/14/25 21:18 04/16/25 04:16 Ondansetron Inj 4 Mg/2 Ml Vial IV PUSH 4 mg Q4H PRN Administration Nausea And Vomiting Potassium Chloride 40 meq 04/15/25 15:25 04/15/25 17:10 Potassium Chloride 20 Meq Packet (For Liquid) PO 40 meq DAILY JENNIFER Administration Radiology Results: ITS Impressions Scrotum Ultrasound 04/14/25 15:01 IMPRESSION: 1. Nonspecific prominent collateral wall thickening with edema and small left hydrocele. 2. The bilateral testes and epididymides appear normal with normal symmetric vascular flow on color Doppler. Pelvis CT 04/14/25 15:39 IMPRESSION: 1. Small bilateral hydroceles with prominent scrotal edema including some associated hyperemia consistent with cellulitis. No evident abscess or soft tissue gas to suggest active fasciitis which is ultimately a clinical diagnosis. Labs Labs: Laboratory Results - last 24 hr 04/16/25 03:57 WBC 9.0 RBC 4.00 L Hgb 11.8 L Hct 33.7 L MCV 84.3 MCH 29.5 MCHC 35.0 RDW 12.8 Plt Count 86 L MPV 11.2 H Immature Gran % (Auto) 1.5 H Neut % (Auto) 84.8 H Lymph % (Auto) 6.3 L [place] % (Auto) 4.8 Eos % (Auto) 2.0 Baso % (Auto) 0.6 Lymph # (Auto) 0.56 L [place] # (Auto) 0.4 Eos # (Auto) 0.2 Baso # (Auto) 0.1 Abs Immat Gran (auto) 0.13 H Absolute Neuts (auto) 7.6 H Absolute Nucleated RBC 0.000 Nucleated RBC % 0.0 % Immature Plt Fraction 7.6 ESR 59 H Sodium 133 L Potassium 3.2 L Chloride 105 Carbon Dioxide 21 L Anion Gap 7 BUN 17 D Creatinine 0.90 Estim Creat Clear Calc 120 Estimated GFR > 60 Glucose 113 H Calcium 7.8 L Magnesium 2.2 Total Bilirubin 3.8 H AST 42 ALT 58 H Alkaline Phosphatase 84 C-Reactive Protein 21.8 H Total Protein 5.5 L Albumin 2.7 L Procalcitonin 21.2 Vancomycin Trough 9.5 L Quality VTE Prophylaxis VTE prophylaxis: mechanical ordered
[2025-04-16] MEDS: BUPivacaine HCL 0.5% 10 ML AMP 30 ML INFILTRATE (10:24)
--- NOTE | 2025-04-16 10:25 | P.PNAN_ITS ---
Anes - Eval Final PreProcedure Day of Procedure 04/16/25 10:25 Patient weight: obese Heart: regular rate and rhythm Lungs: decreased breath sounds Airway: Mallampati scale class II Neurological: alert and oriented Last oral intake: >/= 8 hours ASA classification: III Emergent: yes Anesthetic plan: proceed Anesthesia type and monitoring: general LMA and standard monitoring Other findings: exam per ELHAM Results Review: All pre-operative results and documents have been reviewed as part of the pre- operative evaluation. Informed Consent: The patient's anesthetic plan and its attendant risks and benefits were discussed with the patient/family/POA. Questions were solicited and answers provided to the satisfaction of the patient/family/POA.
--- NOTE | 2025-04-16 10:53 | W.PM.PROC2 ---
Procedure Note - Detailed Date of Procedure 04/16/25 Pre-op Diagnosis scrotal cellulitis/scrotal abscess Post-op Diagnosis Same Procedure Performed I&D of scrotal abscess Surgeon Boo Posadas MD Anesthesia General Description of Procedure Patient was taken the operative suite correctly identified. Once anesthesia was obtained was placed in a supine position and prepped and draped usual sterile fashion. Incision was made over the left hemiscrotum over the area that was somewhat fluctuant. Approximately 2 cm incision was made. The tissue itself was not necrotic but obviously was not healthy appearing. There was no discrete purulence but there was some cloudy fluid that was draining. Culturette was taken. Using my finger and bluntly dissected out a little cyst cavity. The testicle appeared encapsulated. It was not discretely visible. He had a similar area on the right side which only meatus 1 cm incision. No purulence was noted. The wounds were copiously irrigated. Quarter-inch Mónica was then inserted into both cavities. He was taken recovery stable condition. I am also concerned regarding the vancomycin possibly causing a reaction to his scrotal skin. Will have ID pharmacy re-evaluate for alternative medicine. This completes dictation. Please send a copy of op note to my office Estimated Blood Loss 5 Urine Output 800 Drains No Packing Yes Pathology Yes Complications No immediate complications Condition Stable Disposition PACU
[2025-04-16] MEDS: LINEZOLID 600 MG/300 ML 600 MG/300 ML SOLN 300 MG IVPB ×2 (11:38→20:56)
[2025-04-16] MEDS: POTASSIUM CHLORIDE 20 MEQ PACKET (FOR LIQUID) 40 MEQ PO (12:53)
[2025-04-17] VITALS (8 sets, daily range): BP systolic 109–140; BP diastolic 59–79; PULSE 67–85; RESP 14–20; TEMP 36.7–37; O2SAT 97–100
[2025-04-17 06:09] LABS: Basophils Absolute Auto 0.1 K/mm3 (0.0-0.1); Basophils Percent Auto 0.8 % (0.2-1.2); Eosinophils Absolute Auto 0.1 K/mm3 (0-0.3); Eosinophils Percent Auto 0.7 % (0-4.4); Hematocrit 34.4 % (42.0-52.0); Hemoglobin 11.5 g/dL (14.0-18.0); Immature Granulocyte Absolute 1.01 K/mm3 (0.00-0.031); Immature Granulocyte Percent A 7.8 % (0-0.5); Immature Platelet Fraction Pct 8.2 % (0.9-11.2); Lymphocytes Percent Auto 14.8 % (18.3-44.2); Mean Corpuscular HGB Conc 33.4 g/dl (32-36); Mean Corpuscular Hemoglobin 29.4 pg (26-34); Mean Platelet Volume 11.1 fl (7.4-10.4); Monocytes Absolute Auto 1.2 K/mm3 (0.1-0.6); Neutrophils Absolute Auto 8.6 K/mm3 (1.3-6.7); Neutrophils Percent Auto 66.9 % (45.5-73.1); Platelet Count Result 111 k/mm3 (150-375); Red Blood Count 3.91 M/mm3 (4.6-6.20); Red Cell Distribution Width 13.8 % (11.5-14.5); White Blood Count 12.9 K/mm3 (4.5-10.0)
[2025-04-17 06:29] LABS: Erythrocyte Sedimentation Rate 55 mm/hr (0-20)
[2025-04-17 06:30] LABS: Alanine Aminotransferase 100 U/L (6-50); Albumin Level 2.9 g/dL (3.5-5.1); Alkaline Phosphatase 113 U/L (38-126); Anion Gap 6 mmol/L (4-12); Aspartate Amino Transferase 78 U/L (17-59); Bilirubin,Total 1.7 mg/dL (0.2-1.3); Blood Urea Nitrogen 18 mg/dL (9-20); Calcium 8.1 mg/dL (8.4-10.2); Carbon Dioxide 24 mmol/L (22-30); Chloride 108 mmol/L (98-107); Estimated CRCL calculation 111 ml/min; Estimated Glomerular Filt Rate > 60; Glucose 104 mg/dL (65-110); Magnesium 2.2 mg/dL (1.6-2.3); Potassium 3.4 mmol/L (3.4-5.0); Sodium 138 mmol/L (137-145); Total Protein 5.7 g/dL (6.3-8.2)
[2025-04-17 06:31] LABS: CRP 12.5 mg/dL (<1.0)
[2025-04-17 06:46] LABS: Procalcitonin 13.1 ng/mL
[2025-04-17] MEDS: amLODIPine BESYLATE 10 MG TABLET PO (08:11)
[2025-04-17] MEDS: POTASSIUM CHLORIDE 20 MEQ PACKET (FOR LIQUID) 40 MEQ PO (08:11)
[2025-04-17] MEDS: MAGNESIUM OXIDE 400 MG TABLET PO (08:11)
[2025-04-17] MEDS: HYDROcodone/acetaminophen (*CRX) 5-325 MG TABLET 1 TAB PO (08:12)
--- NOTE | 2025-04-17 08:13 | WPDUROPN2 ---
Progress Note: A&P Assessment and Plan (1) Cellulitis of scrotum: Code(s): N49.2 - Inflammatory disorders of scrotum Status: Acute Assessment and Plan: Continue with IV antibiotics for the time being. Overall he is improving despite the slight bump in his white count. There is decreased edema, decreased erythema and overall he is feeling better. Will continue to monitor. (2) Scrotal abscess: Code(s): N49.2 - Inflammatory disorders of scrotum Status: Acute Assessment and Plan: Fibrinous tissue debrided at bedside. Otherwise appears to be healing well. Quite a bit of drainage overnight. She will start wet-to-dry dressing changes 2-3 times per day. Subjective Subjective Date/Time Seen: 04/17/25 08:13 Post Op day: 1 (I and D scrotal abscess) Principal diagnosis: Cellulitis with scrotal abscess Interval history: Edilberto is feeling better today. His white count is slightly elevated at 12,000 thousand will need to keep an eye on that. He has been afebrile. He has having quite a bit of drainage from his scrotal area. Review of Systems Review of Systems: All systems reviewed & are unremarkable except as noted in HPI and below Exam Const: General: cooperative and comfortable Resp: Effort & Inspection: normal respiratory effort Cardio: Rate: regular rate Rhythm: regular rhythm : Scrotum: edematous (Has decreased) Other: His incisions healing well overall there is some fibrinous tissue in the left open incision. This was debrided and repacked no evidence of significant necrotic tissue seen Objective Data Vital Signs Vital Signs: Vital Signs - 24 hr 04/16/25 08:43 04/16/25 09:47 04/16/25 10:59 Temperature 36.8 C Pulse Rate 95 92 70 Respiratory Rate 16 19 Blood Pressure 91/60 L 101/66 Pulse Oximetry 98 96 Oxygen Delivery Room Air Simple Face Mask Oxygen Flow Rate 8 04/16/25 11:14 04/16/25 11:18 04/16/25 11:30 Temperature Pulse Rate 71 72 73 Respiratory Rate 22 H 22 H 20 Blood Pressure 101/68 109/74 109/69 Pulse Oximetry 98 98 92 Oxygen Delivery Simple Face Mask Simple Face Mask Room Air Oxygen Flow Rate 8 8 04/16/25 11:45 04/16/25 12:00 04/16/25 12:15 Temperature 36.1 C L Pulse Rate 71 75 73 Respiratory Rate 18 18 16 Blood Pressure 107/72 103/70 100/69 Pulse Oximetry 92 94 92 Oxygen Delivery Room Air Room Air Room Air Oxygen Flow Rate 04/16/25 12:35 04/16/25 12:50 04/16/25 13:20 Temperature 36.4 C 36.4 C 36.4 C Pulse Rate 76 74 73 Respiratory Rate 12 18 14 Blood Pressure 104/67 105/59 L 102/63 Pulse Oximetry 95 96 97 Oxygen Delivery Oxygen Flow Rate 04/16/25 14:20 04/16/25 16:09 04/16/25 16:20 Temperature 36.5 C 36.4 C L Pulse Rate 80 78 77 Respiratory Rate 20 18 Blood Pressure 110/71 112/62 Pulse Oximetry 96 100 Oxygen Delivery Oxygen Flow Rate 04/16/25 20:00 04/16/25 20:00 04/16/25 21:00 Temperature 37.2 C Pulse Rate 75 75 Respiratory Rate 18 Blood Pressure 109/62 Pulse Oximetry 99 Oxygen Delivery Room Air Oxygen Flow Rate 04/17/25 00:00 04/17/25 00:00 04/17/25 04:00 Temperature 36.9 C 37.0 C Pulse Rate 67 77 77 Respiratory Rate 18 18 Blood Pressure 120/68 109/59 L Pulse Oximetry 97 99 Oxygen Delivery Oxygen Flow Rate 04/17/25 04:00 Temperature Pulse Rate 72 Respiratory Rate Blood Pressure Pulse Oximetry Oxygen Delivery Oxygen Flow Rate Intake/Output Intake/Output: Intake & Output 04/14/25 04/15/25 04/16/25 04/17/25 23:59 23:59 23:59 23:59 Intake Total 4451 2910 2700 550 Output Total 600 2100 3100 Balance 3851 810 -400 550 Meds/Results Medications: Active Medications Generic Name Dose Route Start Last Admin Trade Name Freq PRN Reason Stop Dose Admin Acetaminophen 650 mg 04/14/25 21:18 Acetaminophen 325 Mg Tablet PO Q4H PRN Mild Pain (1-3) or Fever Hydrocodone Bitart/Acetaminophen 1 tab 04/14/25 21:18 04/16/25 23:57 Hydrocodone/Acetaminophen (*Crx) 5-325 Mg Tablet PO 1 tab Q4H PRN Administration Pain Rated 4-6 Amlodipine Besylate 10 mg 04/15/25 09:00 04/16/25 08:43 Amlodipine Besylate 10 Mg Tablet PO 10 mg DAILY JENNIFER Administration Atenolol 100 mg 04/16/25 09:00 04/16/25 08:43 Atenolol 50 Mg Tablet PO 100 mg 0900 JENNIFER Administration Hydromorphone HCl 1 mg 04/14/25 21:18 04/15/25 17:14 Hydromorphone Hcl Inj (*Crx) 2 Mg/Ml Vial IV PUSH 1 mg Q4H PRN Administration Pain Rated 7-10 Linezolid 600 mg in 300 mls @ 300 mls/hr 04/16/25 11:15 04/16/25 21:56 Zyvox IVPB Infused Q12HR JENNIFER Infusion Loratadine 10 mg 04/16/25 09:00 04/16/25 08:56 Loratadine 10 Mg Tablet PO Not Given 899 [facility] Magnesium Oxide 400 mg 04/15/25 15:25 04/16/25 08:44 Magnesium Oxide 400 Mg Tablet PO 400 mg DAILY JENNIFER Administration Ondansetron HCl 4 mg 04/14/25 21:18 04/16/25 04:16 Ondansetron Inj 4 Mg/2 Ml Vial IV PUSH 4 mg Q4H PRN Administration Nausea And Vomiting Potassium Chloride 40 meq 04/15/25 15:25 04/16/25 12:53 Potassium Chloride 20 Meq Packet (For Liquid) PO 40 meq DAILY JENNIFER Administration Radiology Results: ITS Impressions Scrotum Ultrasound 04/14/25 15:01 IMPRESSION: 1. Nonspecific prominent collateral wall thickening with edema and small left hydrocele. 2. The bilateral testes and epididymides appear normal with normal symmetric vascular flow on color Doppler. Pelvis CT 04/14/25 15:39 IMPRESSION: 1. Small bilateral hydroceles with prominent scrotal edema including some associated hyperemia consistent with cellulitis. No evident abscess or soft tissue gas to suggest active fasciitis which is ultimately a clinical diagnosis. Labs Labs: Laboratory Results - last 24 hr 04/17/25 05:56 WBC 12.9 H RBC 3.91 L Hgb 11.5 L Hct 34.4 L MCV 88.0 MCH 29.4 MCHC 33.4 RDW 13.8 Plt Count 111 L MPV 11.1 H Immature Gran % (Auto) 7.8 H Neut % (Auto) 66.9 Lymph % (Auto) 14.8 L [place] % (Auto) 9.0 H Eos % (Auto) 0.7 Baso % (Auto) 0.8 Lymph # (Auto) 1.90 [place] # (Auto) 1.2 H Eos # (Auto) 0.1 Baso # (Auto) 0.1 Abs Immat Gran (auto) 1.01 H Absolute Neuts (auto) 8.6 H Absolute Nucleated RBC 0.000 Nucleated RBC % 0.0 % Immature Plt Fraction 8.2 ESR 55 H Sodium 138 Potassium 3.4 Chloride 108 H Carbon Dioxide 24 Anion Gap 6 BUN 18 Creatinine 0.98 Estim Creat Clear Calc 111 Estimated GFR > 60 Glucose 104 Calcium 8.1 L Magnesium 2.2 Total Bilirubin 1.7 H AST 78 H ALT 100 H Alkaline Phosphatase 113 C-Reactive Protein 12.5 H Total Protein 5.7 L Albumin 2.9 L Procalcitonin 13.1
[2025-04-17] MEDS: atenoloL 50 MG TABLET 100 MG PO (08:15)
[2025-04-17] MEDS: LINEZOLID 600 MG/300 ML 600 MG/300 ML SOLN 300 MG IVPB ×2 (08:15→21:35)
--- NOTE | 2025-04-17 12:27 | P.PNIM_ITS ---
Progress Note: A&P Assessment and Plan (1) Cellulitis of scrotum: Code(s): N49.2 - Inflammatory disorders of scrotum Status: Acute Assessment and Plan: -Worsened despite doxycycline and Rocephin 04/13 -US and CT show thickened skin without gangrene -Urology evaluated patient in ER -Patient received 4 liters IV fluids for sepsis bolus, remains tachycardic -Urine culture sent 04/13-pending -Received Rocephin/doxycycline and vancomycin in ER -Vancomycin will be continued - urology was consulted and no acute intervention is recommended - continue antibiotcs 04/16: I&D performed, per uro, erythematous and sloughy appearance with not a lot of pus -Per uro Dr. Posadas, vanc and ceftriaxone may have been making his cellulitis worse. Talked to ID pharm and decision was made to switch abx to Zyvox (Linezolid). -If does better on Zyvox, will likely switch over to Bactrim x7-10 days pending culture -Uro to continue to follow 04/17: Pt feeling better today with pain, uro changed dressing this AM. Quite a bit of drainage over night per uro note. -Per uro note today: Continue with IV antibiotics for the time being. Overall he is improving despite the slight bump in his white count. There is decreased edema, decreased erythema and overall he is feeling better. Will continue to monitor. Fibrinous tissue debrided at bedside. Otherwise appears to be healing well. Quite a bit of drainage overnight. She will start wet-to-dry dressing changes 2-3 times per day. (2) Sepsis: Code(s): A41.9 - Sepsis, unspecified organism Status: Acute Assessment and Plan: -See above -Lactic acid improved from 4.5 to 2.1 after IV fluids -Elevated bilirubin likely due to sepsis as well -Blood cultures pending, urine cultures negative, wound culture pending -BP have been more baseline today: 109/59-127/70, will continue to monitor -Slight bump is WBC from yesterday, 9-->12.9. Will continue daily labs and VS (3) Hypertension: Code(s): I10 - Essential (primary) hypertension Status: Acute Assessment and Plan: -Continue home medications with parameters for hypotension (4) Hyponatremia: Code(s): E87.1 - Hypo-osmolality and hyponatremia Status: Acute Assessment and Plan: -Sodium 127 on chemistry panel in ER on 04/14, was 136 on 04/13 ER visit -Likely SIADH due to pain -Patient received nearly 4 liters of LR bolus in ER and 500 mL potassium in NACL -Continue to trend labs daily -->04/16: 133 -->04/17: 138 (5) Hypokalemia: Code(s): E87.6 - Hypokalemia Status: Acute Assessment and Plan: -Potassium 3.0 in ED -IV 40 mEq given, repeat labs in AM -->04/16: 3.2 -Continue daily suppl -->04/17: 3.4 -Continue daily suppl, probable D/C K suppl tomorrow (6) Abnormal urinalysis: Code(s): R82.90 - Unspecified abnormal findings in urine Status: Acute Assessment and Plan: -Urine culture WDL from ED visit 04/13 -WBC 51-100 and leukocyte esterase present -Received Rocephin on both 04/13 and 04/14 in ER (7) Kidney disease: Code(s): N28.9 - Disorder of kidney and ureter, unspecified Status: Acute Assessment and Plan: -No labs prior to 04/13 available but renal dysfunction noted on both 04/13 and 04/14 labs -Cr 1.7, eGFR 42 and estimated CrCl 64 on both 04/13 and 04/14 labs -->Have since normalized -Recheck in AM after fluid boluses -Consider Nephrology consult if worsening of renal function or sodium levels Plan Pain better today and tolerating food. Continue to trend labs, sepsis, abx, and pain again tomorrow. Uro continue to follow. Increase diet as tolerated. Subjective Date/time seen: 04/17/25 1110 Interval history: Scrotal pain/swelling, scrotal cellulitis, sepsis Retrieved from H/P: 50 year old male patient with history of HTN who is admitted to the hospital with scrotal cellulitis. Patient was seen in ER on 04/13 and treated with Rocephin and doxycycline for epididymitis after ultrasound consistent with this finding. Urinalysis on that visit showed 1+ leukocyte esterase, 51-100 wbc's no urine bacteria and negative nitrates. Urine culture is pending. Patient reports that pain worsened so he came back to the emergency department on 04/14 with increased pain and increased swelling. Labs revealed WBC 10, Sodium down to 127 from 136 the prior day, potassium down to 3.0 from 3.6, Carbon dioxide down to 16 form 23. Renal function with same creatinine but increased BUN from 20 to 38. Lactic acid noted at 4.5 and bilirubin increased from 2.1 to 4.4. These labs consistent with sepsis. Patient received nearly 4 liters of IV fluids in ER but remained tachycardic. TSH normal. Repeat lactic acid down to 2.1. STD urine labs negative today. CT scan and repeat scrotal ultrasound today show scrotal wall thickening without free gas or fluid pocket collection. Patient evaluated by Urology in ER and will follow along for repeat scrotal evaluations. Patient received Rocephin, doxycycline and vancomycin in ER. Will continue Vancomycin for now. Heparin and diltiazem was briefly ordered but stopped without patient receiving either medication as initial EKG initially thought to be atrial flutter but later re- evaluated and found to be sinus tach. Pt is seen and examined. Urology saw pt and no acute intervention is needed. pain is controlled 04/16: Pt was seen post I&D of the scrotum. Pt reports that he is starting to feel pain post surgery, but the overall pressure around his scrotum is better. Per uro Dr. Posadas, vanc and ceftriaxone may have been making his cellulitis worse. Uro talked to ID pharm and decision was made to switch abx to Zyvox (Linezolid). Pt working on liquid and will advance diet as tolerated. 04/17: Pt reports doing better today pain garner, he is trying to space out his oral pain meds q7 hours because he does not really like how they make him feel. Encouraged pt to take them as needed for pain, pt agreeable. Dressing changed by sangita this AM, it is currently C/D/I. Plan to remain on IV abx. Slight bump in WBC overnight (9->12.9), will continue to monitor daily labs. Review of Systems Review of Systems: All systems reviewed & are unremarkable except as noted in HPI and below Exam Const: General: comfortable and no acute distress Other: Disheveled appearance HENMT: Face/Nose/Sinus: Normal nares present Mouth: Yes moist mucous membranes Eyes: General: appearance normal, both eyes and all related structures Sclera: sclerae normal Neck: Neck: supple and no JVD Resp: Effort & Inspection: normal respiratory effort Auscultation: clear to auscultation bilaterally Cardio: Rate: regular rate Rhythm: regular rhythm GI: Inspection: non-distended Auscultation: normal bowel sounds Other: No TTP : Other: Uro dressing with packing in place, C/D/I Skin: General skin exam: normal color and no rashes or lesions noted Other: Erythema up to mid suprapubic region Neuro: Speech: normal speech Motor exam (neuro): Normal motor muscle tone present throughout Sensory Exam: normal sensation Extrem: General: normal to inspection and no edema Psych: Mental Status: mental status grossly normal Affect: normal affect Objective Data Vital Signs Vital Signs: Vital Signs - 24 hr 04/16/25 12:35 04/16/25 12:50 04/16/25 13:20 Temperature 97.6 F 97.6 F 97.6 F Pulse Rate 76 74 73 Respiratory Rate 12 18 14 Blood Pressure 104/67 105/59 L 102/63 Pulse Oximetry 95 96 97 Oxygen Delivery 04/16/25 14:20 04/16/25 16:09 04/16/25 16:20 Temperature 97.7 F 97.5 F L Pulse Rate 80 78 77 Respiratory Rate 20 18 Blood Pressure 110/71 112/62 Pulse Oximetry 96 100 Oxygen Delivery 04/16/25 20:00 04/16/25 20:00 04/16/25 21:00 Temperature 99 F Pulse Rate 75 75 Respiratory Rate 18 Blood Pressure 109/62 Pulse Oximetry 99 Oxygen Delivery Room Air 04/17/25 00:00 04/17/25 00:00 04/17/25 04:00 Temperature 98.4 F 98.6 F Pulse Rate 67 77 77 Respiratory Rate 18 18 Blood Pressure 120/68 109/59 L Pulse Oximetry 97 99 Oxygen Delivery 04/17/25 04:00 04/17/25 08:00 04/17/25 08:00 Temperature 98.1 F Pulse Rate 72 76 Respiratory Rate 14 Blood Pressure 140/79 Pulse Oximetry 100 Oxygen Delivery Room Air 04/17/25 08:00 04/17/25 08:15 06/12/25 11:54 Temperature 98.2 F Pulse Rate 85 80 73 Respiratory Rate 20 Blood Pressure 127/70 Pulse Oximetry 100 Oxygen Delivery Intake/Output Intake/Output: Intake & Output 04/14/25 04/15/25 04/16/25 04/17/25 23:59 23:59 23:59 23:59 Intake Total 4451 2910 2700 1208 Output Total 600 2100 3100 Balance 3851 810 -400 1208 Meds/Results Medications: Active Medications Generic Name Dose Route Start Last Admin Trade Name Freq PRN Reason Stop Dose Admin Acetaminophen 650 mg 04/14/25 21:18 Acetaminophen 325 Mg Tablet PO Q4H PRN Mild Pain (1-3) or Fever Hydrocodone Bitart/Acetaminophen 1 tab 04/14/25 21:18 04/17/25 08:12 Hydrocodone/Acetaminophen (*Crx) 5-325 Mg Tablet PO 1 tab Q4H PRN Administration Pain Rated 4-6 Amlodipine Besylate 10 mg 04/15/25 09:00 04/17/25 08:11 Amlodipine Besylate 10 Mg Tablet PO 10 mg DAILY JENNIFER Administration Atenolol 100 mg 04/16/25 09:00 04/17/25 08:15 Atenolol 50 Mg Tablet PO 100 mg 0900 JENNIFER Administration Hydromorphone HCl 1 mg 04/14/25 21:18 04/15/25 17:14 Hydromorphone Hcl Inj (*Crx) 2 Mg/Ml Vial IV PUSH 1 mg Q4H PRN Administration Pain Rated 7-10 Linezolid 600 mg in 300 mls @ 300 mls/hr 04/16/25 11:15 04/17/25 09:15 Zyvox IVPB Infused Q12HR JENNIFER Infusion Loratadine 10 mg 04/17/25 08:20 Loratadine 10 Mg Tablet PO 0900 PRN Congestion Magnesium Oxide 400 mg 04/15/25 15:25 04/17/25 08:11 Magnesium Oxide 400 Mg Tablet PO 400 mg DAILY JENNIFER Administration Ondansetron HCl 4 mg 04/14/25 21:18 04/16/25 04:16 Ondansetron Inj 4 Mg/2 Ml Vial IV PUSH 4 mg Q4H PRN Administration Nausea And Vomiting Potassium Chloride 40 meq 04/15/25 15:25 04/17/25 08:11 Potassium Chloride 20 Meq Packet (For Liquid) PO 40 meq DAILY JENNIFER Administration Radiology Results: ITS Impressions Scrotum Ultrasound 04/14/25 15:01 IMPRESSION: 1. Nonspecific prominent collateral wall thickening with edema and small left hydrocele. 2. The bilateral testes and epididymides appear normal with normal symmetric vascular flow on color Doppler. Pelvis CT 04/14/25 15:39 IMPRESSION: 1. Small bilateral hydroceles with prominent scrotal edema including some associated hyperemia consistent with cellulitis. No evident abscess or soft tissue gas to suggest active fasciitis which is ultimately a clinical diagnosis. Labs Labs: Laboratory Results - last 24 hr 04/17/25 05:56 WBC 12.9 H RBC 3.91 L Hgb 11.5 L Hct 34.4 L MCV 88.0 MCH 29.4 MCHC 33.4 RDW 13.8 Plt Count 111 L MPV 11.1 H Immature Gran % (Auto) 7.8 H Neut % (Auto) 66.9 Lymph % (Auto) 14.8 L [place] % (Auto) 9.0 H Eos % (Auto) 0.7 Baso % (Auto) 0.8 Lymph # (Auto) 1.90 [place] # (Auto) 1.2 H Eos # (Auto) 0.1 Baso # (Auto) 0.1 Abs Immat Gran (auto) 1.01 H Absolute Neuts (auto) 8.6 H Absolute Nucleated RBC 0.000 Nucleated RBC % 0.0 % Immature Plt Fraction 8.2 ESR 55 H Sodium 138 Potassium 3.4 Chloride 108 H Carbon Dioxide 24 Anion Gap 6 BUN 18 Creatinine 0.98 Estim Creat Clear Calc 111 Estimated GFR > 60 Glucose 104 Calcium 8.1 L Magnesium 2.2 Total Bilirubin 1.7 H AST 78 H ALT 100 H Alkaline Phosphatase 113 C-Reactive Protein 12.5 H Total Protein 5.7 L Albumin 2.9 L Procalcitonin 13.1 Quality VTE Prophylaxis VTE prophylaxis: mechanical ordered
--- NOTE | 2025-04-17 13:39 | P.PNAN_ITS ---
Anes - Prog Note Post-Op Date/Time: 04/17/25 13:39 Cardiovascular status: normal Respiratory status: normal Airway patency: baseline Mental status: baseline Post-Op hydration status: normal Vital Signs: Last Vital Signs Temp 98.2 F 04/17/25 11:54 Pulse 73 04/17/25 11:54 Resp 20 04/17/25 11:54 BP 127/70 04/17/25 11:54 Pulse Ox 100 04/17/25 11:54 O2 Del Method Room Air 04/17/25 08:00 O2 Flow Rate 8 04/16/25 11:18 Pain Score (VAS): 0/10 I/O: Intake & Output 04/16/25 04/17/25 04/17/25 23:59 07:59 15:59 Intake Total 1700 550 658 Output Total 700 Balance 1000 550 658 Laboratory Tests 04/17/25 05:56 04/17/25 05:56 04/17/25 05:56 WBC 12.9 H RBC 3.91 L Hgb 11.5 L Hct 34.4 L MCV 88.0 MCH 29.4 MCHC 33.4 RDW 13.8 Plt Count 111 L MPV 11.1 H Immature Gran % (Auto) 7.8 H Neut % (Auto) 66.9 Lymph % (Auto) 14.8 L [place] % (Auto) 9.0 H Eos % (Auto) 0.7 Baso % (Auto) 0.8 Lymph # (Auto) 1.90 [place] # (Auto) 1.2 H Eos # (Auto) 0.1 Baso # (Auto) 0.1 Abs Immat Gran (auto) 1.01 H Absolute Neuts (auto) 8.6 H Absolute Nucleated RBC 0.000 Nucleated RBC % 0.0 % Immature Plt Fraction 8.2 ESR 55 H Sodium 138 Potassium 3.4 Chloride 108 H Carbon Dioxide 24 Anion Gap 6 BUN 18 Creatinine 0.98 Estim Creat Clear Calc 111 Estimated GFR > 60 Glucose 104 Calcium 8.1 L Magnesium 2.2 Total Bilirubin 1.7 H AST 78 H ALT 100 H Alkaline Phosphatase 113 C-Reactive Protein 12.5 H Total Protein 5.7 L Albumin 2.9 L Procalcitonin 13.1 Microbiology 04/16/25 10:35 Abscess Anaerobic Culture - Preliminary Post-procedural complaints: none Patient Feedback: Patient satisfied with anesthetic care.
[2025-04-17] MEDS: WATER FOR IRRIGATION, STERILE 1,000 ML BOTTLE 1000 ML (17:10)
[2025-04-17] MEDS: ONDANSETRON INJ 4 MG/2 ML VIAL IV PUSH (17:15)
--- NOTE | 2025-04-17 21:15 | ECG_ITS ---
Test Date: 2025-04-17 22:33:34 Measurements Intervals [place] Rate: 75 P: 56 UT: 142 QRS: 12 QRSD: 149 T: 36 QT: 438 QTc: 492 Interpretive Statements SINUS RHYTHM RIGHT BUNDLE BRANCH BLOCK ABNORMAL ECG Compared to ECG 04/16/2025 06:35:11 No significant changes Electronically Signed On 04-18-2025 06:30:12 CDT by Morris Burkett D.O.
[2025-04-17] MEDS: PROMETHAZINE HCL 25 MG/ML AMPUL 12.5 MG IV PUSH (23:11)
[2025-04-18] VITALS (9 sets, daily range): BP systolic 115–137; BP diastolic 60–84; PULSE 69–88; RESP 16–18; TEMP 36.7–37; O2SAT 96–100
[2025-04-18 06:06] LABS: Basophils Percent Auto 0.1 % (0.2-1.2); Eosinophils Absolute Auto 0.2 K/mm3 (0-0.3); Eosinophils Percent Auto 1.4 % (0-4.4); Hematocrit 33.6 % (42.0-52.0); Hemoglobin 11.3 g/dL (14.0-18.0); Immature Granulocyte Absolute 2.56 K/mm3 (0.00-0.031); Immature Granulocyte Percent A 16.3 % (0-0.5); Immature Platelet Fraction Pct 7.3 % (0.9-11.2); Lymphocytes Absolute Auto 3.32 K/mm3 (0.9-3.2); Lymphocytes Percent Auto 21.1 % (18.3-44.2); Mean Corpuscular HGB Conc 33.6 g/dl (32-36); Mean Corpuscular Hemoglobin 29.5 pg (26-34); Mean Corpuscular Volume 87.7 fl (80-100); Mean Platelet Volume 10.8 fl (7.4-10.4); Monocytes Absolute Auto 1.4 K/mm3 (0.1-0.6); Monocytes Percent Auto 8.8 % (2.6-8.5); Neutrophils Absolute Auto 8.2 K/mm3 (1.3-6.7); Neutrophils Percent Auto 52.3 % (45.5-73.1); Platelet Count Result 132 k/mm3 (150-375); Red Blood Count 3.83 M/mm3 (4.6-6.20); Red Cell Distribution Width 13.9 % (11.5-14.5); White Blood Count 15.7 K/mm3 (4.5-10.0)
[2025-04-18 06:44] LABS: Alanine Aminotransferase 134 U/L (6-50); Albumin Level 2.7 g/dL (3.5-5.1); Alkaline Phosphatase 151 U/L (38-126); Anion Gap 3 mmol/L (4-12); Aspartate Amino Transferase 95 U/L (17-59); Bilirubin,Total 1.2 mg/dL (0.2-1.3); Blood Urea Nitrogen 19 mg/dL (9-20); Calcium 8.3 mg/dL (8.4-10.2); Carbon Dioxide 26 mmol/L (22-30); Chloride 107 mmol/L (98-107); Estimated CRCL calculation 124 ml/min; Estimated Glomerular Filt Rate > 60; Glucose 99 mg/dL (65-110); Magnesium 1.9 mg/dL (1.6-2.3); Potassium 3.7 mmol/L (3.4-5.0); Sodium 136 mmol/L (137-145); Total Protein 5.5 g/dL (6.3-8.2)
--- NOTE | 2025-04-18 07:50 | P.PNUR_ITS ---
Progress Note: A&P Assessment and Plan (1) Cellulitis of scrotum: Code(s): N49.2 - Inflammatory disorders of scrotum Status: Acute Assessment and Plan: Clinically is improving on exam although drainage persists. Cultures negative to date. However do not have explanation for rise in white count at this point. He remains afebrile. Will continue to monitor. The erythema in his suprapubic area has not increased. Will have to continue to monitor. If white count continues to increase may need reimaging. Patient would have been ready for discharge other than his bump in white count. (2) Scrotal abscess: Code(s): N49.2 - Inflammatory disorders of scrotum Status: Acute Assessment and Plan: No evidence of fluctuance or purulence at this point time Subjective Subjective Date/Time Seen: 04/18/25 07:50 Post Op day: 2 (I and D of scrotal abscess) Principal diagnosis: Cellulitis of scrotum with abscess Interval history: Edilberto has remained afebrile however his white count is slightly more elevated today at 15,000. Denies any pain. Still with some moderate scrotal drainage which is more serous in nature. Does not appear purulent Review of Systems Review of Systems: All systems reviewed & are unremarkable except as noted in HPI and below Exam Const: General: cooperative and other (States was nauseous yesterday and liquids just do not have normal taste) Resp: Effort & Inspection: normal respiratory effort Cardio: Rate: regular rate Rhythm: regular rhythm : Scrotum: other (Edema significantly decreased today. No evidence fluctuance. ) Objective Data Vital Signs Vital Signs: Vital Signs - 24 hr 04/17/25 08:00 04/17/25 08:00 04/17/25 08:00 Temperature 36.7 C Pulse Rate 76 85 Respiratory Rate 14 Blood Pressure 140/79 Pulse Oximetry 100 Oxygen Delivery Room Air 04/17/25 08:15 04/17/25 11:54 04/17/25 12:00 Temperature 36.8 C Pulse Rate 80 73 80 Respiratory Rate 20 Blood Pressure 127/70 Pulse Oximetry 100 Oxygen Delivery 04/17/25 15:50 04/17/25 20:00 04/17/25 20:00 Temperature 36.9 C 36.9 C Pulse Rate 70 81 Respiratory Rate 16 18 Blood Pressure 119/68 129/79 Pulse Oximetry 100 99 Oxygen Delivery Room Air 04/17/25 20:00 04/18/25 00:00 04/18/25 00:00 Temperature 37.0 C Pulse Rate 79 82 84 Respiratory Rate 18 Blood Pressure 133/73 Pulse Oximetry 97 Oxygen Delivery 04/18/25 04:00 04/18/25 04:57 Temperature 37.0 C Pulse Rate 80 82 Respiratory Rate 16 Blood Pressure 119/70 Pulse Oximetry 99 Oxygen Delivery Intake/Output Intake/Output: Intake & Output 04/15/25 04/16/25 04/17/25 04/18/25 23:59 23:59 23:59 23:59 Intake Total 2910 2700 2298 450 Output Total 2100 3100 Balance 810 -400 2298 450 Meds/Results Medications: Active Medications Generic Name Dose Route Start Last Admin Trade Name Freq PRN Reason Stop Dose Admin Acetaminophen 650 mg 04/14/25 21:18 Acetaminophen 325 Mg Tablet PO Q4H PRN Mild Pain (1-3) or Fever Hydrocodone Bitart/Acetaminophen 1 tab 04/14/25 21:18 04/17/25 08:12 Hydrocodone/Acetaminophen (*Crx) 5-325 Mg Tablet PO 1 tab Q4H PRN Administration Pain Rated 4-6 Amlodipine Besylate 10 mg 04/15/25 09:00 04/17/25 08:11 Amlodipine Besylate 10 Mg Tablet PO 10 mg DAILY JENNIFER Administration Atenolol 100 mg 04/16/25 09:00 04/17/25 08:15 Atenolol 50 Mg Tablet PO 100 mg 0900 JENNIFER Administration Hydromorphone HCl 1 mg 04/14/25 21:18 04/15/25 17:14 Hydromorphone Hcl Inj (*Crx) 2 Mg/Ml Vial IV PUSH 1 mg Q4H PRN Administration Pain Rated 7-10 Linezolid 600 mg in 300 mls @ 300 mls/hr 04/16/25 11:15 04/17/25 22:35 Zyvox IVPB Infused Q12HR JENNIFER Infusion Loratadine 10 mg 04/17/25 08:20 Loratadine 10 Mg Tablet PO 0900 PRN Congestion Magnesium Oxide 400 mg 04/15/25 15:25 04/17/25 08:11 Magnesium Oxide 400 Mg Tablet PO 400 mg DAILY JENNIFER Administration Ondansetron HCl 4 mg 04/14/25 21:18 04/17/25 17:15 Ondansetron Inj 4 Mg/2 Ml Vial IV PUSH 4 mg Q4H PRN Administration Nausea And Vomiting Potassium Chloride 40 meq 04/15/25 15:25 04/17/25 08:11 Potassium Chloride 20 Meq Packet (For Liquid) PO 40 meq DAILY JENNIFER Administration Radiology Results: ITS Impressions Scrotum Ultrasound 04/14/25 15:01 IMPRESSION: 1. Nonspecific prominent collateral wall thickening with edema and small left hydrocele. 2. The bilateral testes and epididymides appear normal with normal symmetric vascular flow on color Doppler. Pelvis CT 04/14/25 15:39 IMPRESSION: 1. Small bilateral hydroceles with prominent scrotal edema including some associated hyperemia consistent with cellulitis. No evident abscess or soft tissue gas to suggest active fasciitis which is ultimately a clinical diagnosis. Labs Labs: Laboratory Results - last 24 hr 04/18/25 05:20 WBC 15.7 H RBC 3.83 L Hgb 11.3 L Hct 33.6 L MCV 87.7 MCH 29.5 MCHC 33.6 RDW 13.9 Plt Count 132 L MPV 10.8 H Immature Gran % (Auto) 16.3 H Neut % (Auto) 52.3 Lymph % (Auto) 21.1 [place] % (Auto) 8.8 H Eos % (Auto) 1.4 Baso % (Auto) 0.1 L Lymph # (Auto) 3.32 H [place] # (Auto) 1.4 H Eos # (Auto) 0.2 Baso # (Auto) 0.0 Abs Immat Gran (auto) 2.56 H Absolute Neuts (auto) 8.2 H Absolute Nucleated RBC 0.000 Nucleated RBC % 0.0 % Immature Plt Fraction 7.3 Sodium 136 L Potassium 3.7 Chloride 107 Carbon Dioxide 26 Anion Gap 3 L BUN 19 Creatinine 0.87 Estim Creat Clear Calc 124 Estimated GFR > 60 Glucose 99 Calcium 8.3 L Magnesium 1.9 Total Bilirubin 1.2 AST 95 H ALT 134 H Alkaline Phosphatase 151 H Total Protein 5.5 L Albumin 2.7 L
[2025-04-18] MEDS: POTASSIUM CHLORIDE 20 MEQ PACKET (FOR LIQUID) 40 MEQ PO (09:20)
[2025-04-18] MEDS: amLODIPine BESYLATE 10 MG TABLET PO (09:20)
[2025-04-18] MEDS: MAGNESIUM OXIDE 400 MG TABLET PO (09:20)
[2025-04-18] MEDS: LINEZOLID 600 MG/300 ML 600 MG/300 ML SOLN 300 MG IVPB ×2 (09:22→21:18)
[2025-04-18] MEDS: atenoloL 50 MG TABLET 100 MG PO (09:27)
--- NOTE | 2025-04-18 13:14 | PM.IMPN ---
Progress Note: A&P Assessment and Plan (1) Cellulitis of scrotum: Code(s): N49.2 - Inflammatory disorders of scrotum Status: Acute Assessment and Plan: -Worsened despite doxycycline and Rocephin 04/13 -US and CT show thickened skin without gangrene -Urology evaluated patient in ER -Patient received 4 liters IV fluids for sepsis bolus, remains tachycardic -Urine culture sent 04/13-pending -Received Rocephin/doxycycline and vancomycin in ER -Vancomycin will be continued - urology was consulted and no acute intervention is recommended - continue antibiotics 04/16: I&D performed, per uro, erythematous and sloughy appearance with not a lot of pus -Per uro Dr. Posadas, vanc and ceftriaxone may have been making his cellulitis worse. Talked to ID pharm and decision was made to switch abx to Zyvox (Linezolid). -If does better on Zyvox, will likely switch over to Bactrim x7-10 days pending culture -Uro to continue to follow 04/17: Pt feeling better today with pain, uro changed dressing this AM. Quite a bit of drainage over night per uro note. -Per uro note today: Continue with IV antibiotics for the time being. Overall he is improving despite the slight bump in his white count. There is decreased edema, decreased erythema and overall he is feeling better. Will continue to monitor. Fibrinous tissue debrided at bedside. Otherwise appears to be healing well. Quite a bit of drainage overnight. She will start wet-to-dry dressing changes 2-3 times per day. 04/18: Pt continue to feel better in regards to his cellulitis. Updated him on uro's plan below and plan for possible re-imaging and addition of abx all pending AM labs. Pt agreeable with plan. -Per uro note today: Clinically is improving on exam although drainage persists. Cultures negative to date. However do not have explanation for rise in white count at this point. He remains afebrile. Will continue to monitor. The erythema in his suprapubic area has not increased. Will have to continue to monitor. If white count continues to increase may need reimaging. Patient would have been ready for discharge other than his bump in white count. -->I spoke with ID pharm today and they also recommended if the WBC still is uptrending tomorrow that adding back on Ceftriaxone would be a good idea to see if this would make a difference. (2) Sepsis: Code(s): A41.9 - Sepsis, unspecified organism Status: Acute Assessment and Plan: -See above -Lactic acid improved from 4.5 to 2.1 after IV fluids -Elevated bilirubin likely due to sepsis as well, has since normalized -Blood cultures pending, urine cultures negative, wound culture prelim with Group A step isolated (continue Zyvox) -BP have been more baseline today: 109/59-127/70, will continue to monitor -Slight bump is WBC from yesterday, 12.9-->15.7. Will continue daily labs and VS. Per uro, if still uptrending tomorrow, may need re-imaging (3) Hypertension: Code(s): I10 - Essential (primary) hypertension Status: Acute Assessment and Plan: -Continue home medications with parameters for hypotension (4) Hyponatremia: Code(s): E87.1 - Hypo-osmolality and hyponatremia Status: Acute Assessment and Plan: -Sodium 127 on chemistry panel in ER on 04/14, was 136 on 04/13 ER visit -Likely SIADH due to pain -Patient received nearly 4 liters of LR bolus in ER and 500 mL potassium in NACL -Continue to trend labs daily -->04/16: 133 -->04/17: 138 -->04/18: 136 -Appetite has been fair, endorsing GERD type sx today, rx meds. Encouraged oral intake, will continue to monitor (5) Hypokalemia: Code(s): E87.6 - Hypokalemia Status: Acute Assessment and Plan: -Potassium 3.0 in ED -IV 40 mEq given, repeat labs in AM -->04/16: 3.2 -Continue daily suppl -->04/17: 3.4 -Continue daily suppl -->04/18: 3.7 (6) Abnormal urinalysis: Code(s): R82.90 - Unspecified abnormal findings in urine Status: Acute Assessment and Plan: -Urine culture WDL from ED visit 04/13 -WBC 51-100 and leukocyte esterase present -Received Rocephin on both 04/13 and 04/14 in ER (7) Kidney disease: Code(s): N28.9 - Disorder of kidney and ureter, unspecified Status: Acute Assessment and Plan: -No labs prior to 04/13 available but renal dysfunction noted on both 04/13 and 04/14 labs -Cr 1.7, eGFR 42 and estimated CrCl 64 on both 04/13 and 04/14 labs -->Have since normalized -Recheck in AM after fluid boluses -Consider Nephrology consult if worsening of renal function or sodium levels (8) Acid reflux: Code(s): K21.9 - Gastro-esophageal reflux disease without esophagitis Status: Acute Assessment and Plan: Pt with new c/o acid reflux today and states it is affecting his sleep -Educated him on sitting up while eating/drinking and after for at least an hour and to increase his mobility throughout the day -Ordered tums and Pepcid PRN (9) Insomnia: Code(s): G47.00 - Insomnia, unspecified Status: Acute Assessment and Plan: Report this is acute on chronic, he takes melatonin 10-20 mg intermittently at home and states that after taking this, he is knocked out for days sometimes -Pt denies talking to his PCP about this in the past because his priority has been treating his HTN -Will trial Dose of Trazodone tonight to see if this helps (pt on no psychiatric meds nor does he have a hx of arrhythmias) -Will continue to monitor Plan Pain better today. Continue to trend labs (due to bump in WBC), sepsis, abx, and pain again tomorrow. Uro continue to follow. Increase diet as tolerated. Subjective Date/time seen: 04/18/25 1350 Interval history: Scrotal pain/swelling, scrotal cellulitis, sepsis Retrieved from H/P: 50 year old male patient with history of HTN who is admitted to the hospital with scrotal cellulitis. Patient was seen in ER on 04/13 and treated with Rocephin and doxycycline for epididymitis after ultrasound consistent with this finding. Urinalysis on that visit showed 1+ leukocyte esterase, 51-100 wbc's no urine bacteria and negative nitrates. Urine culture is pending. Patient reports that pain worsened so he came back to the emergency department on 04/14 with increased pain and increased swelling. Labs revealed WBC 10, Sodium down to 127 from 136 the prior day, potassium down to 3.0 from 3.6, Carbon dioxide down to 16 form 23. Renal function with same creatinine but increased BUN from 20 to 38. Lactic acid noted at 4.5 and bilirubin increased from 2.1 to 4.4. These labs consistent with sepsis. Patient received nearly 4 liters of IV fluids in ER but remained tachycardic. TSH normal. Repeat lactic acid down to 2.1. STD urine labs negative today. CT scan and repeat scrotal ultrasound today show scrotal wall thickening without free gas or fluid pocket collection. Patient evaluated by Urology in ER and will follow along for repeat scrotal evaluations. Patient received Rocephin, doxycycline and vancomycin in ER. Will continue Vancomycin for now. Heparin and diltiazem was briefly ordered but stopped without patient receiving either medication as initial EKG initially thought to be atrial flutter but later re-evaluated and found to be sinus tach. Pt is seen and examined. Urology saw pt and no acute intervention is needed. pain is controlled 04/16: Pt was seen post I&D of the scrotum. Pt reports that he is starting to feel pain post surgery, but the overall pressure around his scrotum is better. Per uro Dr. Posadas, vanc and ceftriaxone may have been making his cellulitis worse. Uro talked to ID pharm and decision was made to switch abx to Zyvox (Linezolid). Pt working on liquid and will advance diet as tolerated. 04/17: Pt reports doing better today pain garner, he is trying to space out his oral pain meds q7 hours because he does not really like how they make him feel. Encouraged pt to take them as needed for pain, pt agreeable. Dressing changed by sangita this AM, it is currently C/D/I. Plan to remain on IV abx. Slight bump in WBC overnight (9->12.9), will continue to monitor daily labs. 04/18: Pt reports he is feeling okay today but reports he is feeling some acid reflux (acute) and having issues sleeping (chronic), see plan below. Scrotal area feeling OK today just with increased drainage, in no real need for pain meds. Dressing changed by sangita this AM and afternoon per nursing, it is currently C/D/I. Plan to remain on IV abx. Slight bump in WBC overnight again, will continue to monitor daily labs. Uro to potentially re-image tomorrow. Review of Systems Review of Systems: All systems reviewed & are unremarkable except as noted in HPI and below Exam Const: General: comfortable and no acute distress Other: Disheveled appearance HENMT: Face/Nose/Sinus: Normal nares present Mouth: Yes moist mucous membranes Other: tacky mucus membranes Eyes: General: appearance normal, both eyes and all related structures Sclera: sclerae normal Neck: Neck: supple and no JVD Resp: Effort & Inspection: normal respiratory effort Auscultation: clear to auscultation bilaterally Cardio: Rate: regular rate Rhythm: regular rhythm GI: Inspection: non-distended Auscultation: normal bowel sounds Other: No TTP : Other: Uro dressing with packing in place, C/D/I Skin: General skin exam: normal color and no rashes or lesions noted Other: Erythema up to lower suprapubic region, seems to be decreasing Neuro: Speech: normal speech Motor exam (neuro): Normal motor muscle tone present throughout Sensory Exam: normal sensation Extrem: General: normal to inspection and no edema Psych: Mental Status: mental status grossly normal Affect: normal affect Objective Data Vital Signs Vital Signs: Vital Signs - 24 hr 04/17/25 15:50 04/17/25 20:00 04/17/25 20:00 Temperature 98.5 F 98.4 F Pulse Rate 70 81 Respiratory Rate 16 18 Blood Pressure 119/68 129/79 Pulse Oximetry 100 99 Oxygen Delivery Room Air 04/17/25 20:00 04/18/25 00:00 04/18/25 00:00 Temperature 98.6 F Pulse Rate 79 82 84 Respiratory Rate 18 Blood Pressure 133/73 Pulse Oximetry 97 Oxygen Delivery 04/18/25 04:00 04/18/25 04:57 04/18/25 08:00 Temperature 98.6 F 98.1 F Pulse Rate 80 82 87 Respiratory Rate 16 18 Blood Pressure 119/70 115/66 Pulse Oximetry 99 96 Oxygen Delivery 04/18/25 09:27 04/18/25 09:30 04/18/25 09:30 Temperature Pulse Rate 88 88 82 Respiratory Rate Blood Pressure Pulse Oximetry 96 Oxygen Delivery Room Air 04/18/25 12:00 Temperature Pulse Rate 71 Respiratory Rate 16 Blood Pressure 137/84 Pulse Oximetry 99 Oxygen Delivery Intake/Output Intake/Output: Intake & Output 04/15/25 04/16/25 04/17/25 04/18/25 23:59 23:59 23:59 23:59 Intake Total 2910 2700 2298 810 Output Total 2100 3100 Balance 810 -400 2298 810 Meds/Results Medications: Active Medications Generic Name Dose Route Start Last Admin Trade Name Freq PRN Reason Stop Dose Admin Acetaminophen 650 mg 04/14/25 21:18 Acetaminophen 325 Mg Tablet PO Q4H PRN Mild Pain (1-3) or Fever Hydrocodone Bitart/Acetaminophen 1 tab 04/14/25 21:18 04/17/25 08:12 Hydrocodone/Acetaminophen (*Crx) 5-325 Mg Tablet PO 1 tab Q4H PRN Administration Pain Rated 4-6 Amlodipine Besylate 10 mg 04/15/25 09:00 04/18/25 09:20 Amlodipine Besylate 10 Mg Tablet PO 10 mg DAILY JENNIFER Administration Atenolol 100 mg 04/16/25 09:00 04/18/25 09:27 Atenolol 50 Mg Tablet PO 100 mg 0900 JENNIFER Administration Hydromorphone HCl 1 mg 04/14/25 21:18 04/15/25 17:14 Hydromorphone Hcl Inj (*Crx) 2 Mg/Ml Vial IV PUSH 1 mg Q4H PRN Administration Pain Rated 7-10 Linezolid 600 mg in 300 mls @ 300 mls/hr 04/16/25 11:15 04/18/25 09:22 Zyvox IVPB 300 mls/hr Q12HR JENNIFER Administration Loratadine 10 mg 04/17/25 08:20 Loratadine 10 Mg Tablet PO 0900 PRN Congestion Magnesium Oxide 400 mg 04/15/25 15:25 04/18/25 09:20 Magnesium Oxide 400 Mg Tablet PO 400 mg DAILY JENNIFER Administration Ondansetron HCl 4 mg 04/14/25 21:18 04/17/25 17:15 Ondansetron Inj 4 Mg/2 Ml Vial IV PUSH 4 mg Q4H PRN Administration Nausea And Vomiting Potassium Chloride 40 meq 04/15/25 15:25 04/18/25 09:20 Potassium Chloride 20 Meq Packet (For Liquid) PO 40 meq DAILY JENNIEFR Administration Radiology Results: ITS Impressions Scrotum Ultrasound 04/14/25 15:01 IMPRESSION: 1. Nonspecific prominent collateral wall thickening with edema and small left hydrocele. 2. The bilateral testes and epididymides appear normal with normal symmetric vascular flow on color Doppler. Pelvis CT 04/14/25 15:39 IMPRESSION: 1. Small bilateral hydroceles with prominent scrotal edema including some associated hyperemia consistent with cellulitis. No evident abscess or soft tissue gas to suggest active fasciitis which is ultimately a clinical diagnosis. Labs Labs: Laboratory Results - last 24 hr 04/18/25 05:20 WBC 15.7 H RBC 3.83 L Hgb 11.3 L Hct 33.6 L MCV 87.7 MCH 29.5 MCHC 33.6 RDW 13.9 Plt Count 132 L MPV 10.8 H Immature Gran % (Auto) 16.3 H Neut % (Auto) 52.3 Lymph % (Auto) 21.1 Howard % (Auto) 8.8 H Eos % (Auto) 1.4 Baso % (Auto) 0.1 L Lymph # (Auto) 3.32 H Howard # (Auto) 1.4 H Eos # (Auto) 0.2 Baso # (Auto) 0.0 Abs Immat Gran (auto) 2.56 H Absolute Neuts (auto) 8.2 H Absolute Nucleated RBC 0.000 Nucleated RBC % 0.0 % Immature Plt Fraction 7.3 Sodium 136 L Potassium 3.7 Chloride 107 Carbon Dioxide 26 Anion Gap 3 L BUN 19 Creatinine 0.87 Estim Creat Clear Calc 124 Estimated GFR > 60 Glucose 99 Calcium 8.3 L Magnesium 1.9 Total Bilirubin 1.2 AST 95 H ALT 134 H Alkaline Phosphatase 151 H Total Protein 5.5 L Albumin 2.7 L Quality VTE Prophylaxis VTE prophylaxis: mechanical ordered
[2025-04-18] MEDS: CALCIUM CARBONATE (TUMS) 500 MG (200 MG ELEMENTAL) PO ×2 (17:55)
[2025-04-18] MEDS: traZODone HCL 50 MG TABLET PO (22:57)
[2025-04-19 05:16] VITALS: BP 133/88; PULSE 75; RESP 16; TEMP 36.7; O2SAT 95
[2025-04-19] MEDS: CALCIUM CARBONATE (TUMS) 500 MG (200 MG ELEMENTAL) PO (06:12)
[2025-04-19 06:31] LABS: Hematocrit 35.6 % (42.0-52.0); Hemoglobin 11.8 g/dL (14.0-18.0); Mean Corpuscular HGB Conc 33.1 g/dl (32-36); Mean Corpuscular Hemoglobin 29.3 pg (26-34); Mean Corpuscular Volume 88.3 fl (80-100); Mean Platelet Volume 10.8 fl (7.4-10.4); Platelet Count Result 151 k/mm3 (150-375); Red Blood Count 4.03 M/mm3 (4.6-6.20); Red Cell Distribution Width 14.1 % (11.5-14.5); White Blood Count 18.2 K/mm3 (4.5-10.0)
[2025-04-19 06:46] LABS: Alanine Aminotransferase 132 U/L (6-50); Albumin Level 2.8 g/dL (3.5-5.1); Alkaline Phosphatase 143 U/L (38-126); Anion Gap 6 mmol/L (4-12); Aspartate Amino Transferase 61 U/L (17-59); Bilirubin,Total 0.9 mg/dL (0.2-1.3); Blood Urea Nitrogen 14 mg/dL (9-20); Calcium 8.2 mg/dL (8.4-10.2); Carbon Dioxide 27 mmol/L (22-30); Chloride 104 mmol/L (98-107); Estimated CRCL calculation 137 ml/min; Estimated Glomerular Filt Rate > 60; Glucose 103 mg/dL (65-110); Magnesium 1.8 mg/dL (1.6-2.3); Potassium 3.9 mmol/L (3.4-5.0); Sodium 137 mmol/L (137-145); Total Protein 5.8 g/dL (6.3-8.2)
[2025-04-19 07:03] LABS: Band Neutrophils Percent 6 % (0-6); Lymphocytes Absolute Manual 2.54 K/mm3 (1.1-4.5); Monocytes Absolute Manual 0.72 K/mm3 (0.1-0.90); Monocytes Percent Manual 4 % (3-9); Neutrophils Absolute Manual 14.92 K/mm3 (1.3-6.7); Neutrophils Percent Manual 76 % (46-73); Total Cells Counted 100
[2025-04-19 07:04] LABS: Platelet Estimate Adequate (Adequate); Schistocytes None Seen
[2025-04-19 07:09] LABS: Atypical Lymphocytes Present
[2025-04-19 08:00] VITALS: O2SAT 97
[2025-04-19 09:19] VITALS: PULSE 77
[2025-04-19] MEDS: atenoloL 50 MG TABLET 100 MG PO (09:19)
[2025-04-19] MEDS: POTASSIUM CHLORIDE 20 MEQ PACKET (FOR LIQUID) 40 MEQ PO (09:19)
[2025-04-19] MEDS: amLODIPine BESYLATE 10 MG TABLET PO (09:20)
[2025-04-19] MEDS: MAGNESIUM OXIDE 400 MG TABLET PO (09:20)
[2025-04-19] MEDS: LINEZOLID 600 MG/300 ML 600 MG/300 ML SOLN 300 MG IVPB ×2 (09:20→20:05)
--- NOTE | 2025-04-19 11:13 | PM.IMPN ---
Progress Note: A&P Assessment and Plan (1) Cellulitis of scrotum: Code(s): N49.2 - Inflammatory disorders of scrotum Status: Acute Assessment and Plan: -Worsened despite doxycycline and Rocephin 04/13 -US and CT show thickened skin without gangrene -Urology evaluated patient in ER -Patient received 4 liters IV fluids for sepsis bolus, remains tachycardic -Urine culture sent 04/13-pending -Received Rocephin/doxycycline and vancomycin in ER -Vancomycin will be continued - urology was consulted and no acute intervention is recommended - continue antibiotics 04/16: I&D performed, per uro, erythematous and sloughy appearance with not a lot of pus -Per uro Dr. Posadas, vanc and ceftriaxone may have been making his cellulitis worse. Talked to ID pharm and decision was made to switch abx to Zyvox (Linezolid). -If does better on Zyvox, will likely switch over to Bactrim x7-10 days pending culture -Uro to continue to follow 04/17: Pt feeling better today with pain, uro changed dressing this AM. Quite a bit of drainage over night per uro note. -Per uro note today: Continue with IV antibiotics for the time being. Overall he is improving despite the slight bump in his white count. There is decreased edema, decreased erythema and overall he is feeling better. Will continue to monitor. Fibrinous tissue debrided at bedside. Otherwise appears to be healing well. Quite a bit of drainage overnight. She will start wet-to-dry dressing changes 2-3 times per day. 04/18: Pt continue to feel better in regards to his cellulitis. Updated him on uro's plan below and plan for possible re-imaging and addition of abx all pending AM labs. Pt agreeable with plan. -Per uro note today: Clinically is improving on exam although drainage persists. Cultures negative to date. However do not have explanation for rise in white count at this point. He remains afebrile. Will continue to monitor. The erythema in his suprapubic area has not increased. Will have to continue to monitor. If white count continues to increase may need reimaging. Patient would have been ready for discharge other than his bump in white count. -->I spoke with ID pharm today and they also recommended if the WBC still is uptrending tomorrow that adding back on Ceftriaxone would be a good idea to see if this would make a difference. 04/19: Pt continue to feel better in regards to his cellulitis, reports no pain. Updated him on uro's plan below and plan for possible re-imaging and addition of abx all pending AM labs. WBC still mildly trending up. Spoke to Dr. Messer with uro today, plan to order US scrotal imaging as well as re-start ceftriaxone per ID pharm. Will continue to trend labs in the AM, if still elevated on 04/21, per uro, abd/pelvis CT to make sure nothing else is going on. Pt agreeable with the plan. Per uro note: - Patient is doing well and his exam is benign and stable from previous, with no fluctuance, no purulence, with dressing changes going well. He is afebrile. - However, his WBC is now up to 18. - Therefore, discussed with care team and will add on ceftriaxone for patient to his abx. - Will also obtain scrotal US to ensure no other major abnormalities noted. - If no obvious abnormalities, may consider CT abdomen/pelvis to ensure no other causes of his pain/leukocytosis is missing. -Still pending final anaerobic wound culture, aerobic culture yielding Group A strep, continue Zyvox. -BCs pending (2) Sepsis: Code(s): A41.9 - Sepsis, unspecified organism Status: Acute Assessment and Plan: -See above -Lactic acid improved from 4.5 to 2.1 after IV fluids -Elevated bilirubin likely due to sepsis as well, has since normalized -Blood cultures pending, urine cultures negative, wound culture prelim with Group A step isolated (continue Zyvox) -BP have been more baseline, will continue to monitor -Slight bump is WBC from yesterday again, 15.7-->18.2. Will continue daily labs and VS. Per uro, scrotal US planned for tomorrow and re-start ceftriaxone today. (3) Hypertension: Code(s): I10 - Essential (primary) hypertension Status: Acute Assessment and Plan: -Continue home medications (4) Hyponatremia: Code(s): E87.1 - Hypo-osmolality and hyponatremia Status: Acute Assessment and Plan: -Sodium 127 on chemistry panel in ER on 04/14, was 136 on 04/13 ER visit -Likely SIADH due to pain -Patient received nearly 4 liters of LR bolus in ER and 500 mL potassium in NACL -Continue to trend labs daily -->04/16: 133 -->04/17: 138 -->04/18: 136 -->04/19: 137 -Appetite has been fair, endorsing continued GERD type sx today, rx meds. Encouraged oral intake, will continue to monitor (5) Hypokalemia: Code(s): E87.6 - Hypokalemia Status: Acute Assessment and Plan: -Potassium 3.0 in ED -IV 40 mEq given, repeat labs in AM -->04/16: 3.2 -Continue daily suppl -->04/17: 3.4 -Continue daily suppl -->04/18: 3.7 -Continue daily suppl -->04/19: 3.9 -Continue daily suppl, encouraged intake of more liquid and food today (6) Abnormal urinalysis: Code(s): R82.90 - Unspecified abnormal findings in urine Status: Acute Assessment and Plan: -Urine culture WDL from ED visit 04/13 -WBC 51-100 and leukocyte esterase present -Received Rocephin on both 04/13 and 04/14 in ER (7) Kidney disease: Code(s): N28.9 - Disorder of kidney and ureter, unspecified Status: Acute Assessment and Plan: -No labs prior to 04/13 available but renal dysfunction noted on both 04/13 and 04/14 labs -Cr 1.7, eGFR 42 and estimated CrCl 64 on both 04/13 and 04/14 labs -->Have since normalized -Recheck in AM after fluid boluses -Consider Nephrology consult if worsening of renal function or sodium levels (8) Acid reflux: Code(s): K21.9 - Gastro-esophageal reflux disease without esophagitis Status: Acute Assessment and Plan: Pt with new c/o acid reflux today and states it is affecting his sleep -Educated him on sitting up while eating/drinking and after for at least an hour and to increase his mobility throughout the day -Ordered tums and Pepcid PRN 04/19: Pt states that the tums helped for a little while yesterday and the pepcid had not been tried. Instructed nursing to trial both today with an increased diet and above education. (9) Insomnia: Code(s): G47.00 - Insomnia, unspecified Status: Acute Assessment and Plan: Report this is acute on chronic, he takes melatonin 10-20 mg intermittently at home and states that after taking this, he is knocked out for days sometimes -Pt denies talking to his PCP about this in the past because his priority has been treating his HTN -Will trial Dose of Trazodone tonight to see if this helps (pt on no psychiatric meds nor does he have a hx of arrhythmias) -Will continue to monitor 04/19: Pt reports that he got 2-3 hours of sleep last night and that he is not sure if the Trazodone helped. Pt also self-reporting some anxiety and cabin fever that would be attributing to his insomnia -Plan to increase Trazodone tonight to 100mg to see if this helps -Will also trial Hydrozyzine on a PRN status today as well to also see if this helps his nerves/sleep Plan Pain better today. Continue to trend labs (due to bump in WBC), sepsis, abx, GERD, anxiety, and pain again tomorrow. Uro continue to follow. Increase diet as tolerated. Pending scrotal US. Subjective Date/time seen: 04/19/25 1040 Interval history: Scrotal pain/swelling, scrotal cellulitis, sepsis Retrieved from H/P: 50 year old male patient with history of HTN who is admitted to the hospital with scrotal cellulitis. Patient was seen in ER on 04/13 and treated with Rocephin and doxycycline for epididymitis after ultrasound consistent with this finding. Urinalysis on that visit showed 1+ leukocyte esterase, 51-100 wbc's no urine bacteria and negative nitrates. Urine culture is pending. Patient reports that pain worsened so he came back to the emergency department on 04/14 with increased pain and increased swelling. Labs revealed WBC 10, Sodium down to 127 from 136 the prior day, potassium down to 3.0 from 3.6, Carbon dioxide down to 16 form 23. Renal function with same creatinine but increased BUN from 20 to 38. Lactic acid noted at 4.5 and bilirubin increased from 2.1 to 4.4. These labs consistent with sepsis. Patient received nearly 4 liters of IV fluids in ER but remained tachycardic. TSH normal. Repeat lactic acid down to 2.1. STD urine labs negative today. CT scan and repeat scrotal ultrasound today show scrotal wall thickening without free gas or fluid pocket collection. Patient evaluated by Urology in ER and will follow along for repeat scrotal evaluations. Patient received Rocephin, doxycycline and vancomycin in ER. Will continue Vancomycin for now. Heparin and diltiazem was briefly ordered but stopped without patient receiving either medication as initial EKG initially thought to be atrial flutter but later re-evaluated and found to be sinus tach. Pt is seen and examined. Urology saw pt and no acute intervention is needed. pain is controlled 04/16: Pt was seen post I&D of the scrotum. Pt reports that he is starting to feel pain post surgery, but the overall pressure around his scrotum is better. Per uro Dr. Posadas, vanc and ceftriaxone may have been making his cellulitis worse. Uro talked to ID pharm and decision was made to switch abx to Zyvox (Linezolid). Pt working on liquid and will advance diet as tolerated. 04/17: Pt reports doing better today pain garner, he is trying to space out his oral pain meds q7 hours because he does not really like how they make him feel. Encouraged pt to take them as needed for pain, pt agreeable. Dressing changed by uro this AM, it is currently C/D/I. Plan to remain on IV abx. Slight bump in WBC overnight (9->12.9), will continue to monitor daily labs. 04/18: Pt reports he is feeling okay today but reports he is feeling some acid reflux (acute) and having issues sleeping (chronic), see plan below. Scrotal area feeling OK today just with increased drainage, in no real need for pain meds. Dressing changed by uro this AM and afternoon per nursing, it is currently C/D/I. Plan to remain on IV abx. Slight bump in WBC overnight again, will continue to monitor daily labs. Uro to potentially re-image tomorrow. 04/19: Pt reporting minimal pain today, but really wants to go home. He states that he is not really getting sleep here and is tired of being in the bed. I encouraged him to get up and about to help with his cabin fever, but it would not be safe to send him home quite yet due to his uptrending WBC. Pt agreeable to stay. Pt self reports anxiety and insomnia, see plan below. Review of Systems Review of Systems: All systems reviewed & are unremarkable except as noted in HPI and below Exam Const: General: comfortable and no acute distress Other: Disheveled appearance HENMT: Face/Nose/Sinus: Normal nares present Mouth: Yes moist mucous membranes Eyes: General: appearance normal, both eyes and all related structures Sclera: sclerae normal Neck: Neck: supple and no JVD Carotids: no bruits Resp: Effort & Inspection: normal respiratory effort Auscultation: clear to auscultation bilaterally Cardio: Rate: regular rate Rhythm: regular rhythm GI: Inspection: non-distended Auscultation: normal bowel sounds Other: No TTP : Other: Nursing dressing with packing in place, C/D/I Skin: General skin exam: normal color and no rashes or lesions noted Other: Erythema up to lower suprapubic region, seems to be decreasing daily. Not as red today. Neuro: Speech: normal speech Motor exam (neuro): Normal motor muscle tone present throughout Sensory Exam: normal sensation Extrem: General: normal to inspection and no edema Psych: Mental Status: mental status grossly normal Affect: Anxious affect present Objective Data Vital Signs Vital Signs: Vital Signs - 24 hr 04/18/25 12:00 04/18/25 15:36 04/18/25 20:00 Temperature 98.1 F 98.4 F Pulse Rate 71 69 80 Respiratory Rate 16 18 18 Blood Pressure 137/84 132/80 117/60 Pulse Oximetry 99 99 100 Oxygen Delivery 04/18/25 20:00 04/19/25 05:16 04/19/25 09:19 Temperature 98.1 F Pulse Rate 75 77 Respiratory Rate 16 Blood Pressure 133/88 Pulse Oximetry 95 Oxygen Delivery Room Air Intake/Output Intake/Output: Intake & Output 04/16/25 04/17/25 04/18/25 04/19/25 23:59 23:59 23:59 23:59 Intake Total 2700 2298 2610 550 Output Total 3100 350 Balance -400 2298 2610 200 Meds/Results Medications: Active Medications Generic Name Dose Route Start Last Admin Trade Name Freq PRN Reason Stop Dose Admin Acetaminophen 650 mg 04/14/25 21:18 Acetaminophen 325 Mg Tablet PO Q4H PRN Mild Pain (1-3) or Fever Hydrocodone Bitart/Acetaminophen 1 tab 04/14/25 21:18 04/17/25 08:12 Hydrocodone/Acetaminophen (*Crx) 5-325 Mg Tablet PO 1 tab Q4H PRN Administration Pain Rated 4-6 Amlodipine Besylate 10 mg 04/15/25 09:00 04/19/25 09:20 Amlodipine Besylate 10 Mg Tablet PO 10 mg DAILY JENNIFER Administration Atenolol 100 mg 04/16/25 09:00 04/19/25 09:19 Atenolol 50 Mg Tablet PO 100 mg 0900 JENNIFER Administration Calcium Carbonate 200 mg 04/18/25 13:54 04/19/25 06:12 Calcium Carbonate (Tums) 500 Mg (200 Mg Elemental) PO 200 mg Q6H PRN Administration Indigestion Famotidine 20 mg 04/18/25 13:54 Famotidine 20 Mg/2 Ml Vial IV PUSH ONCE PRN Heartburn Hydromorphone HCl 1 mg 04/14/25 21:18 04/15/25 17:14 Hydromorphone Hcl Inj (*Crx) 2 Mg/Ml Vial IV PUSH 1 mg Q4H PRN Administration Pain Rated 7-10 Linezolid 600 mg in 300 mls @ 300 mls/hr 04/16/25 11:15 04/19/25 09:20 Zyvox IVPB 300 mls/hr Q12HR JENNIFER Administration Loratadine 10 mg 04/17/25 08:20 Loratadine 10 Mg Tablet PO 0900 PRN Congestion Magnesium Oxide 400 mg 04/15/25 15:25 04/19/25 09:20 Magnesium Oxide 400 Mg Tablet PO 400 mg DAILY JENNIFER Administration Ondansetron HCl 4 mg 04/14/25 21:18 04/17/25 17:15 Ondansetron Inj 4 Mg/2 Ml Vial IV PUSH 4 mg Q4H PRN Administration Nausea And Vomiting Potassium Chloride 40 meq 04/15/25 15:25 04/19/25 09:19 Potassium Chloride 20 Meq Packet (For Liquid) PO 40 meq DAILY JENNIFER Administration Trazodone HCl 100 mg 04/19/25 11:10 Trazodone Hcl 50 Mg Tablet PO HS PRN Insomnia Radiology Results: ITS Impressions Scrotum Ultrasound 04/14/25 15:01 IMPRESSION: 1. Nonspecific prominent collateral wall thickening with edema and small left hydrocele. 2. The bilateral testes and epididymides appear normal with normal symmetric vascular flow on color Doppler. Pelvis CT 04/14/25 15:39 IMPRESSION: 1. Small bilateral hydroceles with prominent scrotal edema including some associated hyperemia consistent with cellulitis. No evident abscess or soft tissue gas to suggest active fasciitis which is ultimately a clinical diagnosis. Labs Labs: Laboratory Results - last 24 hr 04/19/25 06:19 WBC 18.2 H RBC 4.03 L Hgb 11.8 L Hct 35.6 L MCV 88.3 MCH 29.3 MCHC 33.1 RDW 14.1 Plt Count 151 MPV 10.8 H Immature Gran % (Auto) Not Reportable Neut % (Auto) Not Reportable Lymph % (Auto) Not Reportable [place] % (Auto) Not Reportable Eos % (Auto) Not Reportable Baso % (Auto) Not Reportable Lymph # (Auto) Not Reportable [place] # (Auto) Not Reportable Eos # (Auto) Not Reportable Baso # (Auto) Not Reportable Abs Immat Gran (auto) Not Reportable Absolute Neuts (auto) Not Reportable Absolute Nucleated RBC Not Reportable Total Counted 100 Neutrophils % (Manual) 76 H Band Neutrophils % 6 Lymphocytes % (Manual) 14.0 L Monocytes % (Manual) 4 Nucleated RBC % Not Reportable Abs Neuts (Manual) 14.92 H Abs Lymphs (Manual) 2.54 Abs Monocytes (Manual) 0.72 Atypical Lymphocytes Present Platelet Estimate Adequate % Immature Plt Fraction 6.0 Schistocytes None seen Sodium 137 Potassium 3.9 Chloride 104 Carbon Dioxide 27 Anion Gap 6 BUN 14 D Creatinine 0.78 Estim Creat Clear Calc 137 Estimated GFR > 60 Glucose 103 Calcium 8.2 L Magnesium 1.8 Total Bilirubin 0.9 AST 61 H ALT 132 H Alkaline Phosphatase 143 H Total Protein 5.8 L Albumin 2.8 L Quality VTE Prophylaxis VTE prophylaxis: mechanical ordered
[2025-04-19 13:00] VITALS: BP 146/83; PULSE 69; RESP 118; O2SAT 97
--- NOTE | 2025-04-19 14:01 | WPDUROPN2 ---
Progress Note: A&P Assessment and Plan (1) Scrotal abscess: Code(s): N49.2 - Inflammatory disorders of scrotum Status: Acute (2) Cellulitis of scrotum: Code(s): N49.2 - Inflammatory disorders of scrotum Status: Acute Plan - Patient is doing well and his exam is benign and stable from previous, with no fluctuance, no purulence, with dressing changes going well. He is afebrile. - However, his WBC is now up to 18. - Therefore, discussed with care team and will add on ceftriaxone for patient to his abx. - Will also obtain scrotal US to ensure no other major abnormalities noted. - If no obvious abnormalities, may consider CT abdomen/pelvis to ensure no other causes of his pain/leukocytosis is missing. Subjective Subjective Date/Time Seen: 04/19/25 14:01 Interval history: NAEO. Patient states he has no pain at all, and dressing changes are going well. However, his WBC continues to trend up. Afebrile and hemodynamically stable. Exam : Other: Scrotal swelling is stable, erythema of the suprapubic area is apparent but also stable from description previous. Two scrotal incision with dressing clean, with mild serous drainage. Nontender to palpation, no crepitus. Objective Data Vital Signs Vital Signs: Vital Signs - 24 hr 04/18/25 15:36 04/18/25 20:00 04/18/25 20:00 Temperature 36.7 C 36.9 C Pulse Rate 69 80 Respiratory Rate 18 18 Blood Pressure 132/80 117/60 Pulse Oximetry 99 100 Oxygen Delivery Room Air 04/19/25 05:16 04/19/25 09:19 Temperature 36.7 C Pulse Rate 75 77 Respiratory Rate 16 Blood Pressure 133/88 Pulse Oximetry 95 Oxygen Delivery Intake/Output Intake/Output: Intake & Output 04/16/25 04/17/25 04/18/25 04/19/25 23:59 23:59 23:59 23:59 Intake Total 2700 2298 2610 790 Output Total 3100 350 Balance -400 2298 2610 440 Meds/Results Medications: Active Medications Generic Name Dose Route Start Last Admin Trade Name Freq PRN Reason Stop Dose Admin Acetaminophen 650 mg 04/14/25 21:18 Acetaminophen 325 Mg Tablet PO Q4H PRN Mild Pain (1-3) or Fever Hydrocodone Bitart/Acetaminophen 1 tab 04/14/25 21:18 04/17/25 08:12 Hydrocodone/Acetaminophen (*Crx) 5-325 Mg Tablet PO 1 tab Q4H PRN Administration Pain Rated 4-6 Amlodipine Besylate 10 mg 04/15/25 09:00 04/19/25 09:20 Amlodipine Besylate 10 Mg Tablet PO 10 mg DAILY JENNIFER Administration Atenolol 100 mg 04/16/25 09:00 04/19/25 09:19 Atenolol 50 Mg Tablet PO 100 mg 0900 JENNIFER Administration Calcium Carbonate 200 mg 04/18/25 13:54 04/19/25 06:12 Calcium Carbonate (Tums) 500 Mg (200 Mg Elemental) PO 200 mg Q6H PRN Administration Indigestion Famotidine 20 mg 04/18/25 13:54 Famotidine 20 Mg/2 Ml Vial IV PUSH ONCE PRN Heartburn Hydromorphone HCl 1 mg 04/14/25 21:18 04/15/25 17:14 Hydromorphone Hcl Inj (*Crx) 2 Mg/Ml Vial IV PUSH 1 mg Q4H PRN Administration Pain Rated 7-10 Hydroxyzine HCl 25 mg 04/19/25 11:12 Hydroxyzine Hcl 25 Mg Tablet PO Q6H PRN Anxiety Linezolid 600 mg in 300 mls @ 300 mls/hr 04/16/25 11:15 04/19/25 09:20 Zyvox IVPB 300 mls/hr Q12HR JENNIFER Administration Loratadine 10 mg 04/17/25 08:20 Loratadine 10 Mg Tablet PO 0900 PRN Congestion Magnesium Oxide 400 mg 04/15/25 15:25 04/19/25 09:20 Magnesium Oxide 400 Mg Tablet PO 400 mg DAILY JENNIFER Administration Ondansetron HCl 4 mg 04/14/25 21:18 04/17/25 17:15 Ondansetron Inj 4 Mg/2 Ml Vial IV PUSH 4 mg Q4H PRN Administration Nausea And Vomiting Potassium Chloride 40 meq 04/15/25 15:25 04/19/25 09:19 Potassium Chloride 20 Meq Packet (For Liquid) PO 40 meq DAILY JENNIFER Administration Trazodone HCl 100 mg 04/19/25 11:10 Trazodone Hcl 50 Mg Tablet PO HS PRN Insomnia Radiology Results: ITS Impressions Scrotum Ultrasound 04/14/25 15:01 IMPRESSION: 1. Nonspecific prominent collateral wall thickening with edema and small left hydrocele. 2. The bilateral testes and epididymides appear normal with normal symmetric vascular flow on color Doppler. Pelvis CT 04/14/25 15:39 IMPRESSION: 1. Small bilateral hydroceles with prominent scrotal edema including some associated hyperemia consistent with cellulitis. No evident abscess or soft tissue gas to suggest active fasciitis which is ultimately a clinical diagnosis. Labs Labs: Laboratory Results - last 24 hr 04/19/25 06:19 WBC 18.2 H RBC 4.03 L Hgb 11.8 L Hct 35.6 L MCV 88.3 MCH 29.3 MCHC 33.1 RDW 14.1 Plt Count 151 MPV 10.8 H Immature Gran % (Auto) Not Reportable Neut % (Auto) Not Reportable Lymph % (Auto) Not Reportable [place] % (Auto) Not Reportable Eos % (Auto) Not Reportable Baso % (Auto) Not Reportable Lymph # (Auto) Not Reportable [place] # (Auto) Not Reportable Eos # (Auto) Not Reportable Baso # (Auto) Not Reportable Abs Immat Gran (auto) Not Reportable Absolute Neuts (auto) Not Reportable Absolute Nucleated RBC Not Reportable Total Counted 100 Neutrophils % (Manual) 76 H Band Neutrophils % 6 Lymphocytes % (Manual) 14.0 L Monocytes % (Manual) 4 Nucleated RBC % Not Reportable Abs Neuts (Manual) 14.92 H Abs Lymphs (Manual) 2.54 Abs Monocytes (Manual) 0.72 Atypical Lymphocytes Present Platelet Estimate Adequate % Immature Plt Fraction 6.0 Schistocytes None seen Sodium 137 Potassium 3.9 Chloride 104 Carbon Dioxide 27 Anion Gap 6 BUN 14 D Creatinine 0.78 Estim Creat Clear Calc 137 Estimated GFR > 60 Glucose 103 Calcium 8.2 L Magnesium 1.8 Total Bilirubin 0.9 AST 61 H ALT 132 H Alkaline Phosphatase 143 H Total Protein 5.8 L Albumin 2.8 L
[2025-04-19] MEDS: cefTRIAXone 2 GM/NS 100 ML 2 GM/100 ML BAG IVPB (16:57)
[2025-04-19] MEDS: FAMOTIDINE 20 MG/2 ML VIAL IV PUSH (17:01)
[2025-04-19 21:00] VITALS: BP 148/91; PULSE 76; RESP 18; TEMP 37.3; O2SAT 98
[2025-04-19] MEDS: hydrOXYzine HCL 25 MG TABLET PO (21:25)
[2025-04-19] MEDS: traZODone HCL 50 MG TABLET 100 MG PO (22:18)
[2025-04-20 05:00] VITALS: BP 156/86; PULSE 77; RESP 18; TEMP 36.8; O2SAT 99
[2025-04-20 07:45] LABS: Basophils Percent Auto 0.2 % (0.2-1.2); Eosinophils Absolute Auto 0.1 K/mm3 (0-0.3); Eosinophils Percent Auto 0.9 % (0-4.4); Hematocrit 35.9 % (42.0-52.0); Hemoglobin 11.5 g/dL (14.0-18.0); Immature Granulocyte Percent A 17.7 % (0-0.5); Lymphocytes Absolute Auto 3.87 K/mm3 (0.9-3.2); Lymphocytes Percent Auto 24.5 % (18.3-44.2); Mean Corpuscular Volume 90.4 fl (80-100); Mean Platelet Volume 10.3 fl (7.4-10.4); Monocytes Absolute Auto 0.9 K/mm3 (0.1-0.6); Monocytes Percent Auto 5.6 % (2.6-8.5); Neutrophils Absolute Auto 8.1 K/mm3 (1.3-6.7); Neutrophils Percent Auto 51.1 % (45.5-73.1); Platelet Count Result 170 k/mm3 (150-375); Red Blood Count 3.97 M/mm3 (4.6-6.20); White Blood Count 15.8 K/mm3 (4.5-10.0)
--- NOTE | 2025-04-20 08:00 | P.PNIM_ITS ---
Progress Note: A&P Assessment and Plan (1) Cellulitis of scrotum: Code(s): N49.2 - Inflammatory disorders of scrotum Status: Acute Assessment and Plan: -Worsened despite doxycycline and Rocephin 04/13 -US and CT show thickened skin without gangrene -Urology evaluated patient in ER -Patient received 4 liters IV fluids for sepsis bolus, remains tachycardic -Urine culture sent 04/13-pending -Received Rocephin/doxycycline and vancomycin in ER -Vancomycin will be continued - urology was consulted and no acute intervention is recommended - continue antibiotics 04/16: I&D performed, per uro, erythematous and sloughy appearance with not a lot of pus -Per uro Dr. Posadas, vanc and ceftriaxone may have been making his cellulitis worse. Talked to ID pharm and decision was made to switch abx to Zyvox (Linezolid). -If does better on Zyvox, will likely switch over to Bactrim x7-10 days pending culture -Uro to continue to follow 04/17: Pt feeling better today with pain, uro changed dressing this AM. Quite a bit of drainage over night per uro note. -Per uro note today: Continue with IV antibiotics for the time being. Overall he is improving despite the slight bump in his white count. There is decreased edema, decreased erythema and overall he is feeling better. Will continue to monitor. Fibrinous tissue debrided at bedside. Otherwise appears to be healing well. Quite a bit of drainage overnight. She will start wet-to-dry dressing changes 2-3 times per day. 04/18: Pt continue to feel better in regards to his cellulitis. Updated him on uro's plan below and plan for possible re-imaging and addition of abx all pending AM labs. Pt agreeable with plan. -Per uro note today: Clinically is improving on exam although drainage persists. Cultures negative to date. However do not have explanation for rise in white count at this point. He remains afebrile. Will continue to monitor. The erythema in his suprapubic area has not increased. Will have to continue to monitor. If white count continues to increase may need reimaging. Patient would have been ready for discharge other than his bump in white count. -->I spoke with ID pharm today and they also recommended if the WBC still is uptrending tomorrow that adding back on Ceftriaxone would be a good idea to see if this would make a difference. 04/19: Pt continue to feel better in regards to his cellulitis, reports no pain. Updated him on uro's plan below and plan for possible re-imaging and addition of abx all pending AM labs. WBC still mildly trending up. Spoke to Dr. Messer with uro today, plan to order US scrotal imaging as well as re-start ceftriaxone per ID pharm. Will continue to trend labs in the AM, if still elevated on 04/21, per uro, abd/pelvis CT to make sure nothing else is going on. Pt agreeable with the plan. Per uro note: - Patient is doing well and his exam is benign and stable from previous, with no fluctuance, no purulence, with dressing changes going well. He is afebrile. - However, his WBC is now up to 18. - Therefore, discussed with care team and will add on ceftriaxone for patient to his abx. - Will also obtain scrotal US to ensure no other major abnormalities noted. - If no obvious abnormalities, may consider CT abdomen/pelvis to ensure no other causes of his pain/leukocytosis is missing. -Still pending final anaerobic wound culture, aerobic culture yielding Group A strep, continue Zyvox. -BCs pending 04/20: -WBC starting to down-trend now, 18.2-->15.8. Will continue to trend labs tomorrow. -Scrotal US read by uro: No acute or continued infection. -Continue with both IV abx, hopeful to switch to oral tomorrow if WBC still downtrending and pt continues to improve. (2) Sepsis: Code(s): A41.9 - Sepsis, unspecified organism Status: Acute Assessment and Plan: -See above -Lactic acid improved from 4.5 to 2.1 after IV fluids -Elevated bilirubin likely due to sepsis as well, has since normalized -Blood cultures pending, urine cultures negative, wound culture prelim with Group A step isolated (continue Zyvox) -BP have been more baseline, will continue to monitor 04/19: -Slight bump is WBC from yesterday again, 15.7-->18.2. Will continue daily labs and VS. Per uro, scrotal US planned for tomorrow and re-start ceftriaxone today. 04/20: -BC final negative -WBC downtrending now, 18.2-->15.8, will continue with labs tomorrow. -Scrotal US unremarkable. Per uro, keep on IV abx and reassess tomorrow. -Still awaiting wound final result, prelim with Group A step isolated (continue Zyvox) (3) Hypertension: Code(s): I10 - Essential (primary) hypertension Status: Acute Assessment and Plan: -Continue home medications (4) Hyponatremia: Code(s): E87.1 - Hypo-osmolality and hyponatremia Status: Acute Assessment and Plan: -Sodium 127 on chemistry panel in ER on 04/14, was 136 on 04/13 ER visit -Likely SIADH due to pain -Patient received nearly 4 liters of LR bolus in ER and 500 mL potassium in NACL -Continue to trend labs daily -->04/16: 133 -->04/17: 138 -->04/18: 136 -->04/19: 137 -Appetite has been fair, endorsing continued GERD type sx today, rx meds. Encouraged oral intake, will continue to monitor -->04/20: 138, pt reports his appetite is a lot better today (5) Hypokalemia: Code(s): E87.6 - Hypokalemia Status: Acute Assessment and Plan: -Potassium 3.0 in ED -IV 40 mEq given, repeat labs in AM -->04/16: 3.2 -Continue daily suppl -->04/17: 3.4 -Continue daily suppl -->04/18: 3.7 -Continue daily suppl -->04/19: 3.9 -Continue daily suppl, encouraged intake of more liquid and food today -->04/20: 4.2 -Since value is over 4 and pt is now eating and drinking normally again, will D/C K suppl (6) Abnormal urinalysis: Code(s): R82.90 - Unspecified abnormal findings in urine Status: Acute Assessment and Plan: -Urine culture WDL from ED visit 04/13 -WBC 51-100 and leukocyte esterase present -Received Rocephin on both 04/13 and 04/14 in ER -Asymptomatic (7) Kidney disease: Code(s): N28.9 - Disorder of kidney and ureter, unspecified Status: Acute Assessment and Plan: -No labs prior to 04/13 available but renal dysfunction noted on both 04/13 and 04/14 labs -Cr 1.7, eGFR 42 and estimated CrCl 64 on both 04/13 and 04/14 labs -->Have since normalized -Recheck in AM after fluid boluses -Consider Nephrology consult if worsening of renal function or sodium levels (8) Acid reflux: Code(s): K21.9 - Gastro-esophageal reflux disease without esophagitis Status: Acute Assessment and Plan: Pt with new c/o acid reflux today and states it is affecting his sleep -Educated him on sitting up while eating/drinking and after for at least an hour and to increase his mobility throughout the day -Ordered tums and Pepcid PRN 04/19: Pt states that the tums helped for a little while yesterday and the pepcid had not been tried. Instructed nursing to trial both today with an increased diet and above education. 04/20: Pt reports that his acid reflux is non existent since taking a dose of pepcid yesterday. Pt plans to take this OTC as needed at home. (9) Insomnia: Code(s): G47.00 - Insomnia, unspecified Status: Acute Assessment and Plan: Report this is acute on chronic, he takes melatonin 10-20 mg intermittently at home and states that after taking this, he is knocked out for days sometimes -Pt denies talking to his PCP about this in the past because his priority has been treating his HTN -Will trial Dose of Trazodone tonight to see if this helps (pt on no psychiatric meds nor does he have a hx of arrhythmias) -Will continue to monitor 04/19: Pt reports that he got 2-3 hours of sleep last night and that he is not sure if the Trazodone helped. Pt also self-reporting some anxiety and cabin fever that would be attributing to his insomnia -Plan to increase Trazodone tonight to 100mg to see if this helps -Will also trial Hydroxyzine on a PRN status today as well to also see if this helps his nerves/sleep - started this instead of BuSpar due to risk of serotonin syndrome on BuSpar and Zyvox. 04/20: Pt reports that he finally got sleep last night. When pt ready for D/C, will give him limited supply of Hydroxyzine and Trazodone and have him f/u with his PCP, pt agreeable with this plan. Plan Pt looking a lot better today. WBC now downtrending, continue to trend labs, abx, GERD, anxiety, and pain again tomorrow. Scrotal US unremarkable. Uro continue to follow. Subjective Date/time seen: 04/20/25 1125 Interval history: Retrieved from H/P: 50 year old male patient with history of HTN who is admitted to the hospital with scrotal cellulitis. Patient was seen in ER on 04/13 and treated with Rocephin and doxycycline for epididymitis after ultrasound consistent with this finding. Urinalysis on that visit showed 1+ leukocyte esterase, 51-100 wbc's no urine bacteria and negative nitrates. Urine culture is pending. Patient reports that pain worsened so he came back to the emergency department on 04/14 with increased pain and increased swelling. Labs revealed WBC 10, Sodium down to 127 from 136 the prior day, potassium down to 3.0 from 3.6, Carbon dioxide down to 16 form 23. Renal function with same creatinine but increased BUN from 20 to 38. Lactic acid noted at 4.5 and bilirubin increased from 2.1 to 4.4. These labs consistent with sepsis. Patient received nearly 4 liters of IV fluids in ER but remained tachycardic. TSH normal. Repeat lactic acid down to 2.1. STD urine labs negative today. CT scan and repeat scrotal ultrasound today show scrotal wall thickening without free gas or fluid pocket collection. Patient evaluated by Urology in ER and will follow along for repeat scrotal evaluations. Patient received Rocephin, doxycycline and vancomycin in ER. Will continue Vancomycin for now. Heparin and diltiazem was briefly ordered but stopped without patient receiving either medication as initial EKG initially thought to be atrial flutter but later re- evaluated and found to be sinus tach. Pt is seen and examined. Urology saw pt and no acute intervention is needed. pain is controlled 04/16: Pt was seen post I&D of the scrotum. Pt reports that he is starting to feel pain post surgery, but the overall pressure around his scrotum is better. Per uro Dr. Posadas, vanc and ceftriaxone may have been making his cellulitis worse. Uro talked to ID pharm and decision was made to switch abx to Zyvox (Linezolid). Pt working on liquid and will advance diet as tolerated. 04/17: Pt reports doing better today pain garner, he is trying to space out his oral pain meds q7 hours because he does not really like how they make him feel. Encouraged pt to take them as needed for pain, pt agreeable. Dressing changed by uro this AM, it is currently C/D/I. Plan to remain on IV abx. Slight bump in WBC overnight (9->12.9), will continue to monitor daily labs. 04/18: Pt reports he is feeling okay today but reports he is feeling some acid reflux (acute) and having issues sleeping (chronic), see plan below. Scrotal area feeling OK today just with increased drainage, in no real need for pain meds. Dressing changed by uro this AM and afternoon per nursing, it is currently C/D/I. Plan to remain on IV abx. Slight bump in WBC overnight again, will con tinue to monitor daily labs. Uro to potentially re-image tomorrow. 04/19: Pt reporting minimal pain today, but really wants to go home. He states that he is not really getting sleep here and is tired of being in the bed. I encouraged him to get up and about to help with his cabin fever, but it would not be safe to send him home quite yet due to his uptrending WBC. Pt agreeable to stay. Pt self reports anxiety and insomnia, see plan below. 04/20: Pt overall feeling a lot better today by his account, he also looks much better. Pt reports that he got sleep for the first time last night with the Hydroxyzine during the day and increased dose of trazodone at night. Per nursing, during dressing change, pt starting to have more sensation and his e lisa is decreased. Pt reports his anxiety today and acid reflux is non existent. Pt interested in taking a shower today, I encouraged him to await plan from uro before doing this. Review of Systems Review of Systems: All systems reviewed & are unremarkable except as noted in HPI and below Exam Const: General: comfortable and no acute distress Other: Disheveled appearance HENMT: Face/Nose/Sinus: Normal nares present Mouth: Yes moist mucous membranes Eyes: General: appearance normal, both eyes and all related structures Sclera: sclerae normal Neck: Neck: supple and no JVD Resp: Effort & Inspection: normal respiratory effort Auscultation: clear to auscultation bilaterally Cardio: Rate: regular rate Rhythm: regular rhythm GI: Inspection: non-distended Auscultation: normal bowel sounds Other: No TTP : Other: Nursing dressing with packing in place, C/D/I Skin: General skin exam: normal color and no rashes or lesions noted Other: No more erythema seen to the suprapubic region Neuro: Speech: normal speech Motor exam (neuro): Normal motor muscle tone present throughout Sensory Exam: normal sensation Extrem: General: normal to inspection and no edema Psych: Mental Status: mental status grossly normal Affect: normal affect Objective Data Vital Signs Vital Signs: Vital Signs - 24 hr 04/19/25 09:19 04/19/25 13:00 04/19/25 20:00 Temperature Pulse Rate 77 69 Respiratory Rate 118 H Blood Pressure 146/83 H Pulse Oximetry 97 Oxygen Delivery Room Air 04/19/25 21:00 04/20/25 05:00 Temperature 99.1 F 98.2 F Pulse Rate 76 77 Respiratory Rate 18 18 Blood Pressure 148/91 H 156/86 H Pulse Oximetry 98 99 Oxygen Delivery Intake/Output Intake/Output: Intake & Output 04/17/25 04/18/25 04/19/25 04/20/25 23:59 23:59 23:59 23:59 Intake Total 2298 2610 3220 Output Total 350 Balance 2298 2610 2870 Meds/Results Medications: Active Medications Generic Name Dose Route Start Last Admin Trade Name Freq PRN Reason Stop Dose Admin Acetaminophen 650 mg 04/14/25 21:18 Acetaminophen 325 Mg Tablet PO Q4H PRN Mild Pain (1-3) or Fever Hydrocodone Bitart/Acetaminophen 1 tab 04/14/25 21:18 04/17/25 08:12 Hydrocodone/Acetaminophen (*Crx) 5-325 Mg Tablet PO 1 tab Q4H PRN Administration Pain Rated 4-6 Amlodipine Besylate 10 mg 04/15/25 09:00 04/19/25 09:20 Amlodipine Besylate 10 Mg Tablet PO 10 mg DAILY JENNIFER Administration Atenolol 100 mg 04/16/25 09:00 04/19/25 09:19 Atenolol 50 Mg Tablet PO 100 mg 0900 JENNIFER Administration Calcium Carbonate 200 mg 04/18/25 13:54 04/19/25 06:12 Calcium Carbonate (Tums) 500 Mg (200 Mg Elemental) PO 200 mg Q6H PRN Administration Indigestion Famotidine 20 mg 04/18/25 13:54 04/19/25 17:01 Famotidine 20 Mg/2 Ml Vial IV PUSH 20 mg ONCE PRN Administration Heartburn Hydromorphone HCl 1 mg 04/14/25 21:18 04/15/25 17:14 Hydromorphone Hcl Inj (*Crx) 2 Mg/Ml Vial IV PUSH 1 mg Q4H PRN Administration Pain Rated 7-10 Hydroxyzine HCl 25 mg 04/19/25 11:12 04/19/25 21:25 Hydroxyzine Hcl 25 Mg Tablet PO 25 mg Q6H PRN Administration Anxiety Linezolid 600 mg in 300 mls @ 300 mls/hr 04/16/25 11:15 04/19/25 20:05 Zyvox IVPB 300 mls/hr Q12HR JENNIFER Administration Ceftriaxone Sodium 2 gm in 100 mls @ 200 mls/hr 04/19/25 16:00 04/19/25 16:57 Rocephin 2 Gm/Ns 100 Ml IVPB 200 mls/hr Q24H JENNIFER Administration Loratadine 10 mg 04/17/25 08:20 Loratadine 10 Mg Tablet PO 0900 PRN Congestion Magnesium Oxide 400 mg 04/15/25 15:25 04/19/25 09:20 Magnesium Oxide 400 Mg Tablet PO 400 mg DAILY JENNIFER Administration Ondansetron HCl 4 mg 04/14/25 21:18 04/17/25 17:15 Ondansetron Inj 4 Mg/2 Ml Vial IV PUSH 4 mg Q4H PRN Administration Nausea And Vomiting Potassium Chloride 40 meq 04/15/25 15:25 04/19/25 09:19 Potassium Chloride 20 Meq Packet (For Liquid) PO 40 meq DAILY JENNIFER Administration Trazodone HCl 100 mg 04/19/25 11:10 04/19/25 22:18 Trazodone Hcl 50 Mg Tablet PO 100 mg HS PRN Administration Insomnia Radiology Results: ITS Impressions Scrotum Ultrasound 04/14/25 15:01 IMPRESSION: 1. Nonspecific prominent collateral wall thickening with edema and small left hydrocele. 2. The bilateral testes and epididymides appear normal with normal symmetric vascular flow on color Doppler. Pelvis CT 04/14/25 15:39 IMPRESSION: 1. Small bilateral hydroceles with prominent scrotal edema including some associated hyperemia consistent with cellulitis. No evident abscess or soft tissue gas to suggest active fasciitis which is ultimately a clinical diagnosis. Quality VTE Prophylaxis VTE prophylaxis: mechanical ordered
[2025-04-20 08:16] LABS: Alanine Aminotransferase 115 U/L (6-50); Albumin Level 2.8 g/dL (3.5-5.1); Alkaline Phosphatase 141 U/L (38-126); Anion Gap 5 mmol/L (4-12); Aspartate Amino Transferase 45 U/L (17-59); Bilirubin,Total 0.7 mg/dL (0.2-1.3); Blood Urea Nitrogen 16 mg/dL (9-20); Calcium 8.3 mg/dL (8.4-10.2); Carbon Dioxide 25 mmol/L (22-30); Chloride 108 mmol/L (98-107); Estimated CRCL calculation 124 ml/min; Estimated Glomerular Filt Rate > 60; Glucose 103 mg/dL (65-110); Magnesium 1.9 mg/dL (1.6-2.3); Potassium 4.2 mmol/L (3.4-5.0); Sodium 138 mmol/L (137-145); Total Protein 5.8 g/dL (6.3-8.2)
[2025-04-20 08:32] LABS: Atypical Lymphocytes Present; Platelet Estimate Adequate (Adequate); Schistocytes None Seen
[2025-04-20] MEDS: LINEZOLID 600 MG/300 ML 600 MG/300 ML SOLN 300 MG IVPB ×2 (09:03→21:35)
[2025-04-20 09:04] VITALS: PULSE 82
[2025-04-20] MEDS: POTASSIUM CHLORIDE 20 MEQ PACKET (FOR LIQUID) 40 MEQ PO (09:04)
[2025-04-20] MEDS: atenoloL 50 MG TABLET 100 MG PO (09:04)
[2025-04-20] MEDS: amLODIPine BESYLATE 10 MG TABLET PO (09:05)
[2025-04-20] MEDS: MAGNESIUM OXIDE 400 MG TABLET PO (09:05)
[2025-04-20 13:00] VITALS: BP 135/78; PULSE 72; RESP 20; TEMP 36.6; O2SAT 100
--- NOTE | 2025-04-20 14:16 | P.PNUR_ITS ---
Progress Note: A&P Assessment and Plan (1) Scrotal abscess: Code(s): N49.2 - Inflammatory disorders of scrotum Status: Acute Assessment and Plan: -patient's white blood cell count is finally now downtrending to 15.8. Patient is doing well and his exam is benign and stable from previous, with no fluctuance, no purulence, with dressing changes going well. He is afebrile. -scrotal ultrasound was performed which showed signs of epididymitis and some thickness of the scrotum, but no signs of any other abnormalities or particularly any abscesses. -continue IV antibiotics for now. Will discuss with ID pharmacy this week and assess cultures for potential transition to p.o. antibiotics in the near future. (2) Cellulitis of scrotum: Code(s): N49.2 - Inflammatory disorders of scrotum Status: Acute Subjective Subjective Date/Time Seen: 04/20/25 14:16 Interval history: NAEO. Patient states he continues to do well. He is interested in shower. S: This is a reasonable to do. He is having no pain. Continue to change dressings which have gone without any issue. Denies any purulent drainage. Denies fevers or chills. White blood cell count is now finally down trending. Exam Const: General: comfortable and no acute distress : Other: Scrotal swelling is stable, erythema of the suprapubic area is apparent but also stable from description previous. Two scrotal incision with dressing clean, with mild serous drainage. Nontender to palpation, no crepitus Objective Data Vital Signs Vital Signs: Vital Signs - 24 hr 04/19/25 20:00 04/19/25 21:00 04/20/25 05:00 Temperature 37.3 C 36.8 C Pulse Rate 76 77 Respiratory Rate 18 18 Blood Pressure 148/91 H 156/86 H Pulse Oximetry 98 99 Oxygen Delivery Room Air 04/20/25 09:04 Temperature Pulse Rate 82 Respiratory Rate Blood Pressure Pulse Oximetry Oxygen Delivery Intake/Output Intake/Output: Intake & Output 04/17/25 04/18/25 04/19/25 04/20/25 23:59 23:59 23:59 23:59 Intake Total 2298 2610 3520 2080 Output Total 350 Balance 2298 2610 3170 2080 Meds/Results Medications: Active Medications Generic Name Dose Route Start Last Admin Trade Name Freq PRN Reason Stop Dose Admin Acetaminophen 650 mg 04/14/25 21:18 Acetaminophen 325 Mg Tablet PO Q4H PRN Mild Pain (1-3) or Fever Hydrocodone Bitart/Acetaminophen 1 tab 04/14/25 21:18 04/17/25 08:12 Hydrocodone/Acetaminophen (*Crx) 5-325 Mg Tablet PO 1 tab Q4H PRN Administration Pain Rated 4-6 Amlodipine Besylate 10 mg 04/15/25 09:00 04/20/25 09:05 Amlodipine Besylate 10 Mg Tablet PO 10 mg DAILY JENNIFER Administration Atenolol 100 mg 04/16/25 09:00 04/20/25 09:04 Atenolol 50 Mg Tablet PO 100 mg 0900 JENNIFER Administration Calcium Carbonate 200 mg 04/18/25 13:54 04/19/25 06:12 Calcium Carbonate (Tums) 500 Mg (200 Mg Elemental) PO 200 mg Q6H PRN Administration Indigestion Famotidine 20 mg 04/18/25 13:54 04/19/25 17:01 Famotidine 20 Mg/2 Ml Vial IV PUSH 20 mg ONCE PRN Administration Heartburn Hydromorphone HCl 1 mg 04/14/25 21:18 04/15/25 17:14 Hydromorphone Hcl Inj (*Crx) 2 Mg/Ml Vial IV PUSH 1 mg Q4H PRN Administration Pain Rated 7-10 Hydroxyzine HCl 25 mg 04/19/25 11:12 04/19/25 21:25 Hydroxyzine Hcl 25 Mg Tablet PO 25 mg Q6H PRN Administration Anxiety Linezolid 600 mg in 300 mls @ 300 mls/hr 04/16/25 11:15 04/20/25 09:03 Zyvox IVPB 300 mls/hr Q12HR JENNIFER Administration Ceftriaxone Sodium 2 gm in 100 mls @ 200 mls/hr 04/19/25 16:00 04/19/25 16:57 Rocephin 2 Gm/Ns 100 Ml IVPB 200 mls/hr Q24H JENNIFER Administration Loratadine 10 mg 04/17/25 08:20 Loratadine 10 Mg Tablet PO 0900 PRN Congestion Magnesium Oxide 400 mg 04/15/25 15:25 04/20/25 09:05 Magnesium Oxide 400 Mg Tablet PO 400 mg DAILY JENNIFER Administration Ondansetron HCl 4 mg 04/14/25 21:18 04/17/25 17:15 Ondansetron Inj 4 Mg/2 Ml Vial IV PUSH 4 mg Q4H PRN Administration Nausea And Vomiting Potassium Chloride 40 meq 04/15/25 15:25 04/20/25 09:04 Potassium Chloride 20 Meq Packet (For Liquid) PO 40 meq DAILY JENNIFER Administration Trazodone HCl 100 mg 04/19/25 11:10 04/19/25 22:18 Trazodone Hcl 50 Mg Tablet PO 100 mg HS PRN Administration Insomnia Radiology Results: ITS Impressions Pelvis CT 04/14/25 15:39 IMPRESSION: 1. Small bilateral hydroceles with prominent scrotal edema including some associated hyperemia consistent with cellulitis. No evident abscess or soft tissue gas to suggest active fasciitis which is ultimately a clinical diagnosis. Scrotum Ultrasound 04/20/25 12:37 Impression: Suspected bilateral epididymitis. No testicular mass or torsion. Diffuse scrotal soft tissue thickening/edema. Labs Labs: Laboratory Results - last 24 hr 04/20/25 07:26 WBC 15.8 H RBC 3.97 L Hgb 11.5 L Hct 35.9 L MCV 90.4 MCH 29.0 MCHC 32.0 RDW 14.0 Plt Count 170 MPV 10.3 Immature Gran % (Auto) 17.7 H Neut % (Auto) 51.1 Lymph % (Auto) 24.5 Wells % (Auto) 5.6 Eos % (Auto) 0.9 Baso % (Auto) 0.2 Lymph # (Auto) 3.87 H Wells # (Auto) 0.9 H Eos # (Auto) 0.1 Baso # (Auto) 0.0 Abs Immat Gran (auto) 2.80 H Absolute Neuts (auto) 8.1 H Absolute Nucleated RBC 0.000 Band Neutrophils % Not Reportable Nucleated RBC % 0.0 Atypical Lymphocytes Present Platelet Estimate Adequate Schistocytes None seen Sodium 138 Potassium 4.2 Chloride 108 H Carbon Dioxide 25 Anion Gap 5 BUN 16 Creatinine 0.87 Estim Creat Clear Calc 124 Estimated GFR > 60 Glucose 103 Calcium 8.3 L Magnesium 1.9 Total Bilirubin 0.7 AST 45 ALT 115 H Alkaline Phosphatase 141 H Total Protein 5.8 L Albumin 2.8 L
[2025-04-20] MEDS: cefTRIAXone 2 GM/NS 100 ML 2 GM/100 ML BAG IVPB (16:23)
[2025-04-20] MEDS: hydrOXYzine HCL 25 MG TABLET PO (21:25)
[2025-04-20] MEDS: traZODone HCL 50 MG TABLET 100 MG PO (21:25)
[2025-04-20 22:56] VITALS: BP 152/74; PULSE 74; RESP 20; TEMP 36.8; O2SAT 100
[2025-04-21 05:37] LABS: Basophils Absolute Auto 0.2 K/mm3 (0.0-0.1); Basophils Percent Auto 0.9 % (0.2-1.2); Eosinophils Absolute Auto 0.1 K/mm3 (0-0.3); Eosinophils Percent Auto 0.6 % (0-4.4); Hematocrit 37.5 % (42.0-52.0); Hemoglobin 12.2 g/dL (14.0-18.0); Immature Granulocyte Absolute 2.45 K/mm3 (0.00-0.031); Immature Granulocyte Percent A 15.5 % (0-0.5); Lymphocytes Absolute Auto 3.27 K/mm3 (0.9-3.2); Lymphocytes Percent Auto 20.6 % (18.3-44.2); Mean Corpuscular HGB Conc 32.5 g/dl (32-36); Mean Corpuscular Hemoglobin 29.1 pg (26-34); Mean Corpuscular Volume 89.5 fl (80-100); Mean Platelet Volume 10.1 fl (7.4-10.4); Monocytes Absolute Auto 0.9 K/mm3 (0.1-0.6); Monocytes Percent Auto 5.7 % (2.6-8.5); Neutrophils Percent Auto 56.7 % (45.5-73.1); Platelet Count Result 204 k/mm3 (150-375); Red Blood Count 4.19 M/mm3 (4.6-6.20); White Blood Count 15.9 K/mm3 (4.5-10.0)
[2025-04-21 05:47] LABS: Alanine Aminotransferase 114 U/L (6-50); Albumin Level 2.9 g/dL (3.5-5.1); Alkaline Phosphatase 140 U/L (38-126); Anion Gap 6 mmol/L (4-12); Aspartate Amino Transferase 40 U/L (17-59); Bilirubin,Total 0.6 mg/dL (0.2-1.3); Blood Urea Nitrogen 16 mg/dL (9-20); Calcium 8.2 mg/dL (8.4-10.2); Carbon Dioxide 26 mmol/L (22-30); Chloride 105 mmol/L (98-107); Estimated CRCL calculation 128 ml/min; Estimated Glomerular Filt Rate > 60; Glucose 117 mg/dL (65-110); Magnesium 1.9 mg/dL (1.6-2.3); Potassium 4.3 mmol/L (3.4-5.0); Sodium 137 mmol/L (137-145); Total Protein 6.1 g/dL (6.3-8.2)
[2025-04-21 06:00] VITALS: BP 119/60; PULSE 75; RESP 20; TEMP 36.7; O2SAT 98
[2025-04-21 06:33] LABS: Atypical Lymphocytes Present; Platelet Estimate Adequate (Adequate); Schistocytes None Seen
--- NOTE | 2025-04-21 08:12 | PM.IMPN ---
Progress Note: A&P Assessment and Plan (1) Cellulitis of scrotum: Code(s): N49.2 - Inflammatory disorders of scrotum Status: Acute Assessment and Plan: -Worsened despite doxycycline and Rocephin 04/13 -US and CT show thickened skin without gangrene -Urology evaluated patient in ER -Patient received 4 liters IV fluids for sepsis bolus, remains tachycardic -Urine culture sent 04/13-pending -Received Rocephin/doxycycline and vancomycin in ER -Vancomycin will be continued - urology was consulted and no acute intervention is recommended - continue antibiotics 04/16: I&D performed, per uro, erythematous and sloughy appearance with not a lot of pus -Per uro Dr. Posadas, vanc and ceftriaxone may have been making his cellulitis worse. Talked to ID pharm and decision was made to switch abx to Zyvox (Linezolid). -If does better on Zyvox, will likely switch over to Bactrim x7-10 days pending culture -Uro to continue to follow 04/17: Pt feeling better today with pain, uro changed dressing this AM. Quite a bit of drainage over night per uro note. -Per uro note today: Continue with IV antibiotics for the time being. Overall he is improving despite the slight bump in his white count. There is decreased edema, decreased erythema and overall he is feeling better. Will continue to monitor. Fibrinous tissue debrided at bedside. Otherwise appears to be healing well. Quite a bit of drainage overnight. She will start wet-to-dry dressing changes 2-3 times per day. 04/18: Pt continue to feel better in regards to his cellulitis. Updated him on uro's plan below and plan for possible re-imaging and addition of abx all pending AM labs. Pt agreeable with plan. -Per uro note today: Clinically is improving on exam although drainage persists. Cultures negative to date. However do not have explanation for rise in white count at this point. He remains afebrile. Will continue to monitor. The erythema in his suprapubic area has not increased. Will have to continue to monitor. If white count continues to increase may need reimaging. Patient would have been ready for discharge other than his bump in white count. -->I spoke with ID pharm today and they also recommended if the WBC still is uptrending tomorrow that adding back on Ceftriaxone would be a good idea to see if this would make a difference. 04/19: Pt continue to feel better in regards to his cellulitis, reports no pain. Updated him on uro's plan below and plan for possible re-imaging and addition of abx all pending AM labs. WBC still mildly trending up. Spoke to Dr. Messer with uro today, plan to order US scrotal imaging as well as re-start ceftriaxone per ID pharm. Will continue to trend labs in the AM, if still elevated on 04/21, per uro, abd/pelvis CT to make sure nothing else is going on. Pt agreeable with the plan. Per uro note: - Patient is doing well and his exam is benign and stable from previous, with no fluctuance, no purulence, with dressing changes going well. He is afebrile. - However, his WBC is now up to 18. - Therefore, discussed with care team and will add on ceftriaxone for patient to his abx. - Will also obtain scrotal US to ensure no other major abnormalities noted. - If no obvious abnormalities, may consider CT abdomen/pelvis to ensure no other causes of his pain/leukocytosis is missing. -Still pending final anaerobic wound culture, aerobic culture yielding Group A strep, continue Zyvox. -BCs pending 04/20: -WBC starting to down-trend now, 18.2-->15.8. Will continue to trend labs tomorrow. -Scrotal US read by uro: No acute or continued infection. -Continue with both IV abx, hopeful to switch to oral tomorrow if WBC still downtrending and pt continues to improve. 04/21: -WBC virtually the same over night, will continue to trend labs -Per uro recs today: Antibiotics and wound care. Will likely need a long course of antibiotics. Hopefully something oral would be sufficient. No drainable fluid collection at this point or need for further surgical intervention -Spoke extensively to ID pharm about pt, plan to D/C ceftriaxone and Zyvox. Switch to oral Bactrim and cefdinir, will continue these at D/C tomorrow, hopeful for D/C as well. (2) Sepsis: Code(s): A41.9 - Sepsis, unspecified organism Status: Acute Assessment and Plan: -See above -Lactic acid improved from 4.5 to 2.1 after IV fluids -Elevated bilirubin likely due to sepsis as well, has since normalized -Blood cultures pending, urine cultures negative, wound culture prelim with Group A step isolated (continue Zyvox) -BP have been more baseline, will continue to monitor 04/19: -Slight bump is WBC from yesterday again, 15.7-->18.2. Will continue daily labs and VS. Per uro, scrotal US planned for tomorrow and re-start ceftriaxone today. 04/20: -BC final negative -WBC downtrending now, 18.2-->15.8, will continue with labs tomorrow. -Scrotal US unremarkable. Per uro, keep on IV abx and reassess tomorrow. -Still awaiting wound final result, prelim with Group A step isolated (continue Zyvox) 04/21: -BC final negative -WBC virtually same overnight 15.8-->15.9, will continue with labs tomorrow. -Still awaiting wound final result, prelim with Group A step isolated (continue Zyvox) -Spoke extensively to ID pharm about pt, plan to D/C ceftriaxone and Zyvox. Switch to oral Bactrim and cefdinir, will continue these at D/C tomorrow, hopeful for D/C as well. (3) Hypertension: Code(s): I10 - Essential (primary) hypertension Status: Acute Assessment and Plan: -Continue home medications (4) Hyponatremia: Code(s): E87.1 - Hypo-osmolality and hyponatremia Status: Acute Assessment and Plan: -Sodium 127 on chemistry panel in ER on 04/14, was 136 on 04/13 ER visit -Likely SIADH due to pain -Patient received nearly 4 liters of LR bolus in ER and 500 mL potassium in NACL -Continue to trend labs daily -->04/16: 133 -->04/17: 138 -->04/18: 136 -->04/19: 137 -Appetite has been fair, endorsing continued GERD type sx today, rx meds. Encouraged oral intake, will continue to monitor -->04/20: 138, pt reports his appetite is a lot better today -->04/21: 137 (5) Hypokalemia: Code(s): E87.6 - Hypokalemia Status: Acute Assessment and Plan: -Potassium 3.0 in ED -IV 40 mEq given, repeat labs in AM -->04/16: 3.2 -Continue daily suppl -->04/17: 3.4 -Continue daily suppl -->04/18: 3.7 -Continue daily suppl -->04/19: 3.9 -Continue daily suppl, encouraged intake of more liquid and food today -->04/20: 4.2 -Since value is over 4 and pt is now eating and drinking normally again, will D/C K suppl -->04/21: 4.3 (6) Abnormal urinalysis: Code(s): R82.90 - Unspecified abnormal findings in urine Status: Acute Assessment and Plan: -Urine culture WDL from ED visit 04/13 -WBC 51-100 and leukocyte esterase present -Received Rocephin on both 04/13 and 04/14 in ER -Asymptomatic (7) Kidney disease: Code(s): N28.9 - Disorder of kidney and ureter, unspecified Status: Acute Assessment and Plan: -No labs prior to 04/13 available but renal dysfunction noted on both 04/13 and 04/14 labs -Cr 1.7, eGFR 42 and estimated CrCl 64 on both 04/13 and 04/14 labs -->Have since normalized -Recheck in AM after fluid boluses -Consider Nephrology consult if worsening of renal function or sodium levels (8) Acid reflux: Code(s): K21.9 - Gastro-esophageal reflux disease without esophagitis Status: Acute Assessment and Plan: Pt with new c/o acid reflux today and states it is affecting his sleep -Educated him on sitting up while eating/drinking and after for at least an hour and to increase his mobility throughout the day -Ordered tums and Pepcid PRN 04/19: Pt states that the tums helped for a little while yesterday and the pepcid had not been tried. Instructed nursing to trial both today with an increased diet and above education. 04/20: Pt reports that his acid reflux is non existent since taking a dose of pepcid yesterday. Pt plans to take this OTC as needed at home. 04/21: C/o more today, pt receiving tums and pepcid when I was in the room, educated him that both of these meds can be taken multiple times a day on a PRN basis so he is able to request them when he is in need, pt aware. (9) Insomnia: Code(s): G47.00 - Insomnia, unspecified Status: Acute Assessment and Plan: Report this is acute on chronic, he takes melatonin 10-20 mg intermittently at home and states that after taking this, he is knocked out for days sometimes -Pt denies talking to his PCP about this in the past because his priority has been treating his HTN -Will trial Dose of Trazodone tonight to see if this helps (pt on no psychiatric meds nor does he have a hx of arrhythmias) -Will continue to monitor 04/19: Pt reports that he got 2-3 hours of sleep last night and that he is not sure if the Trazodone helped. Pt also self-reporting some anxiety and cabin fever that would be attributing to his insomnia -Plan to increase Trazodone tonight to 100mg to see if this helps -Will also trial Hydroxyzine on a PRN status today as well to also see if this helps his nerves/sleep - started this instead of BuSpar due to risk of serotonin syndrome on BuSpar and Zyvox. 04/20: Pt reports that he finally got sleep last night. When pt ready for D/C, will give him limited supply of Hydroxyzine and Trazodone and have him f/u with his PCP, pt agreeable with this plan. 04/21: Pt reports not as great sleep last night but is still feeling OK. Will continue with sleep regimen. Plan Continue to trend labs to watch WBC and how oral abx are going. Pending uro blessing for D/C hopeful tomorrow. Subjective Date/time seen: 04/21/25 0938 Interval history: Retrieved from H/P: 50 year old male patient with history of HTN who is admitted to the hospital with scrotal cellulitis. Patient was seen in ER on 04/13 and treated with Rocephin and doxycycline for epididymitis after ultrasound consistent with this finding. Urinalysis on that visit showed 1+ leukocyte esterase, 51-100 wbc's no urine bacteria and negative nitrates. Urine culture is pending. Patient reports that pain worsened so he came back to the emergency department on 04/14 with increased pain and increased swelling. Labs revealed WBC 10, Sodium down to 127 from 136 the prior day, potassium down to 3.0 from 3.6, Carbon dioxide down to 16 form 23. Renal function with same creatinine but increased BUN from 20 to 38. Lactic acid noted at 4.5 and bilirubin increased from 2.1 to 4.4. These labs consistent with sepsis. Patient received nearly 4 liters of IV fluids in ER but remained tachycardic. TSH normal. Repeat lactic acid down to 2.1. STD urine labs negative today. CT scan and repeat scrotal ultrasound today show scrotal wall thickening without free gas or fluid pocket collection. Patient evaluated by Urology in ER and will follow along for repeat scrotal evaluations. Patient received Rocephin, doxycycline and vancomycin in ER. Will continue Vancomycin for now. Heparin and diltiazem was briefly ordered but stopped without patient receiving either medication as initial EKG initially thought to be atrial flutter but later re-evaluated and found to be sinus tach. Pt is seen and examined. Urology saw pt and no acute intervention is needed. pain is controlled 04/16: Pt was seen post I&D of the scrotum. Pt reports that he is starting to feel pain post surgery, but the overall pressure around his scrotum is better. Per uro Dr. Posadas, vanc and ceftriaxone may have been making his cellulitis worse. Uro talked to ID pharm and decision was made to switch abx to Zyvox (Linezolid). Pt working on liquid and will advance diet as tolerated. 04/17: Pt reports doing better today pain garner, he is trying to space out his oral pain meds q7 hours because he does not really like how they make him feel. Encouraged pt to take them as needed for pain, pt agreeable. Dressing changed by sangita this AM, it is currently C/D/I. Plan to remain on IV abx. Slight bump in WBC overnight (9->12.9), will continue to monitor daily labs. 04/18: Pt reports he is feeling okay today but reports he is feeling some acid reflux (acute) and having issues sleeping (chronic), see plan below. Scrotal area feeling OK today just with increased drainage, in no real need for pain meds. Dressing changed by uro this AM and afternoon per nursing, it is currently C/D/I. Plan to remain on IV abx. Slight bump in WBC overnight again, will continue to monitor daily labs. Uro to potentially re-image tomorrow. 04/19: Pt reporting minimal pain today, but really wants to go home. He states that he is not really getting sleep here and is tired of being in the bed. I encouraged him to get up and about to help with his cabin fever, but it would not be safe to send him home quite yet due to his uptrending WBC. Pt agreeable to stay. Pt self reports anxiety and insomnia, see plan below. 04/20: Pt overall feeling a lot better today by his account, he also looks much better. Pt reports that he got sleep for the first time last night with the Hydroxyzine during the day and increased dose of trazodone at night. Per nursing, during dressing change, pt starting to have more sensation and his edema is decreased. Pt reports his anxiety today and acid reflux is non existent. Pt interested in taking a shower today, I encouraged him to await plan from uro before doing this. 04/21: Pt continues to feel good in regard to his infection. He is c/o GERD sx today again, plan to use tums and pepcid today. He was able to shower today. Awaiting recs from uro for D/C and abx therapy. Review of Systems Review of Systems: All systems reviewed & are unremarkable except as noted in HPI and below Exam Const: General: comfortable and no acute distress HENMT: Face/Nose/Sinus: Normal nares present Mouth: Yes moist mucous membranes Eyes: General: appearance normal, both eyes and all related structures Sclera: sclerae normal Neck: Neck: supple and no JVD Carotids: no bruits Resp: Effort & Inspection: normal respiratory effort Auscultation: clear to auscultation bilaterally Cardio: Rate: regular rate Rhythm: regular rhythm GI: Inspection: non-distended Auscultation: normal bowel sounds Other: No TTP : Other: Nursing dressing with packing in place, C/D/I Skin: General skin exam: normal color and no rashes or lesions noted Other: No more erythema seen to the suprapubic region Neuro: Speech: normal speech Motor exam (neuro): Normal motor muscle tone present throughout Sensory Exam: normal sensation Extrem: General: normal to inspection and no edema Psych: Mental Status: mental status grossly normal Affect: normal affect Objective Data Vital Signs Vital Signs: Vital Signs - 24 hr 04/20/25 09:00 04/20/25 09:04 04/20/25 13:00 Temperature 97.9 F Pulse Rate 82 72 Respiratory Rate 20 Blood Pressure 135/78 Pulse Oximetry 100 Oxygen Delivery Room Air 04/20/25 20:00 04/20/25 22:56 Temperature 98.3 F Pulse Rate 74 Respiratory Rate 20 Blood Pressure 152/74 H Pulse Oximetry 100 Oxygen Delivery Room Air Intake/Output Intake/Output: Intake & Output 04/18/25 04/19/25 04/20/25 04/21/25 23:59 23:59 23:59 23:59 Intake Total 2610 3620 4960 Output Total 350 Balance 2610 3270 4960 Meds/Results Medications: Active Medications Generic Name Dose Route Start Last Admin Trade Name Freq PRN Reason Stop Dose Admin Acetaminophen 650 mg 04/14/25 21:18 Acetaminophen 325 Mg Tablet PO Q4H PRN Mild Pain (1-3) or Fever Hydrocodone Bitart/Acetaminophen 1 tab 04/14/25 21:18 04/17/25 08:12 Hydrocodone/Acetaminophen (*Crx) 5-325 Mg Tablet PO 1 tab Q4H PRN Administration Pain Rated 4-6 Amlodipine Besylate 10 mg 04/15/25 09:00 04/20/25 09:05 Amlodipine Besylate 10 Mg Tablet PO 10 mg DAILY JENNIFER Administration Atenolol 100 mg 04/16/25 09:00 04/20/25 09:04 Atenolol 50 Mg Tablet PO 100 mg 0900 JENNIFER Administration Calcium Carbonate 200 mg 04/18/25 13:54 04/19/25 06:12 Calcium Carbonate (Tums) 500 Mg (200 Mg Elemental) PO 200 mg Q6H PRN Administration Indigestion Famotidine 20 mg 04/18/25 13:54 04/19/25 17:01 Famotidine 20 Mg/2 Ml Vial IV PUSH 20 mg ONCE PRN Administration Heartburn Hydromorphone HCl 1 mg 04/14/25 21:18 04/15/25 17:14 Hydromorphone Hcl Inj (*Crx) 2 Mg/Ml Vial IV PUSH 1 mg Q4H PRN Administration Pain Rated 7-10 Hydroxyzine HCl 25 mg 04/19/25 11:12 04/20/25 21:25 Hydroxyzine Hcl 25 Mg Tablet PO 25 mg Q6H PRN Administration Anxiety Linezolid 600 mg in 300 mls @ 300 mls/hr 04/16/25 11:15 04/20/25 21:35 Zyvox IVPB 300 mls/hr Q12HR JENNIFER Administration Ceftriaxone Sodium 2 gm in 100 mls @ 200 mls/hr 04/19/25 16:00 04/20/25 16:53 Rocephin 2 Gm/Ns 100 Ml IVPB Infused Q24H JENNIFER Infusion Loratadine 10 mg 04/17/25 08:20 Loratadine 10 Mg Tablet PO 0900 PRN Congestion Magnesium Oxide 400 mg 04/15/25 15:25 04/20/25 09:05 Magnesium Oxide 400 Mg Tablet PO 400 mg DAILY JENNIFER Administration Ondansetron HCl 4 mg 04/14/25 21:18 04/17/25 17:15 Ondansetron Inj 4 Mg/2 Ml Vial IV PUSH 4 mg Q4H PRN Administration Nausea And Vomiting Trazodone HCl 100 mg 04/19/25 11:10 04/20/25 21:25 Trazodone Hcl 50 Mg Tablet PO 100 mg HS PRN Administration Insomnia Radiology Results: ITS Impressions Pelvis CT 04/14/25 15:39 IMPRESSION: 1. Small bilateral hydroceles with prominent scrotal edema including some associated hyperemia consistent with cellulitis. No evident abscess or soft tissue gas to suggest active fasciitis which is ultimately a clinical diagnosis. Scrotum Ultrasound 04/20/25 12:37 Impression: Suspected bilateral epididymitis. No testicular mass or torsion. Diffuse scrotal soft tissue thickening/edema. Labs Labs: Laboratory Results - last 24 hr 04/20/25 04/21/25 07:26 05:28 WBC 15.8 H 15.9 H RBC 3.97 L 4.19 L Hgb 11.5 L 12.2 L Hct 35.9 L 37.5 L MCV 90.4 89.5 MCH 29.0 29.1 MCHC 32.0 32.5 RDW 14.0 14.0 Plt Count 170 204 MPV 10.3 10.1 Immature Gran % (Auto) 17.7 H 15.5 H Neut % (Auto) 51.1 56.7 Lymph % (Auto) 24.5 20.6 Adams % (Auto) 5.6 5.7 Eos % (Auto) 0.9 0.6 Baso % (Auto) 0.2 0.9 Lymph # (Auto) 3.87 H 3.27 H Adams # (Auto) 0.9 H 0.9 H Eos # (Auto) 0.1 0.1 Baso # (Auto) 0.0 0.2 H Abs Immat Gran (auto) 2.80 H 2.45 H Absolute Neuts (auto) 8.1 H 9.0 H Absolute Nucleated RBC 0.000 0.000 Band Neutrophils % Not Reportable Not Reportable Nucleated RBC % 0.0 0.0 Atypical Lymphocytes Present Present Platelet Estimate Adequate Adequate Schistocytes None seen None seen Sodium 138 137 Potassium 4.2 4.3 Chloride 108 H 105 Carbon Dioxide 25 26 Anion Gap 5 6 BUN 16 16 Creatinine 0.87 0.84 Estim Creat Clear Calc 124 128 Estimated GFR > 60 > 60 Glucose 103 117 H Calcium 8.3 L 8.2 L Magnesium 1.9 1.9 Total Bilirubin 0.7 0.6 AST 45 40 ALT 115 H 114 H Alkaline Phosphatase 141 H 140 H Total Protein 5.8 L 6.1 L Albumin 2.8 L 2.9 L Quality VTE Prophylaxis VTE prophylaxis: mechanical ordered
[2025-04-21 09:30] VITALS: O2SAT 98
[2025-04-21 09:33] VITALS: PULSE 78
[2025-04-21] MEDS: atenoloL 50 MG TABLET 100 MG PO (09:33)
[2025-04-21] MEDS: CALCIUM CARBONATE (TUMS) 500 MG (200 MG ELEMENTAL) PO ×3 (09:33→21:10)
[2025-04-21] MEDS: FAMOTIDINE 20 MG/2 ML VIAL IV PUSH (09:33)
[2025-04-21] MEDS: MAGNESIUM OXIDE 400 MG TABLET PO (09:34)
[2025-04-21] MEDS: LINEZOLID 600 MG/300 ML 600 MG/300 ML SOLN 300 MG IVPB (09:35)
[2025-04-21] MEDS: amLODIPine BESYLATE 10 MG TABLET PO (09:35)
--- NOTE | 2025-04-21 10:54 | P.PNUR_ITS ---
Progress Note: A&P Assessment and Plan (1) Scrotal abscess: Code(s): N49.2 - Inflammatory disorders of scrotum Status: Acute Assessment and Plan: Antibiotics and wound care. Will likely need a long course of antibiotics. Hopefully something oral would be sufficient. No drainable fluid collection at this point or need for further surgical intervention Subjective Subjective Date/Time Seen: 04/21/25 10:54 Review of Systems Review of Systems: White blood count stable. No pain. Dressing in place Exam Narrative: Scrotum examined. Some associated edema. No significant erythema. Scrotal incisions noted. Probed with a finger. No necrosis of the skin. Significant fibrinous exudate noted. Objective Data Vital Signs Vital Signs: Vital Signs - 24 hr 04/20/25 13:00 04/20/25 20:00 04/20/25 22:56 Temperature 97.9 F 98.3 F Pulse Rate 72 74 Respiratory Rate 20 20 Blood Pressure 135/78 152/74 H Pulse Oximetry 100 100 Oxygen Delivery Room Air 04/21/25 06:00 04/21/25 09:33 Temperature 98.1 F Pulse Rate 75 78 Respiratory Rate 20 Blood Pressure 119/60 Pulse Oximetry 98 Oxygen Delivery Intake/Output Intake/Output: Intake & Output 04/18/25 04/19/25 04/20/25 04/21/25 23:59 23:59 23:59 23:59 Intake Total 2610 3620 5260 840 Output Total 350 1800 Balance 2610 3270 5260 -960 Meds/Results Medications: Active Medications Generic Name Dose Route Start Last Admin Trade Name Freq PRN Reason Stop Dose Admin Acetaminophen 650 mg 04/14/25 21:18 Acetaminophen 325 Mg Tablet PO Q4H PRN Mild Pain (1-3) or Fever Hydrocodone Bitart/Acetaminophen 1 tab 04/14/25 21:18 04/17/25 08:12 Hydrocodone/Acetaminophen (*Crx) 5-325 Mg Tablet PO 1 tab Q4H PRN Administration Pain Rated 4-6 Amlodipine Besylate 10 mg 04/15/25 09:00 04/21/25 09:35 Amlodipine Besylate 10 Mg Tablet PO 10 mg DAILY JENNIFER Administration Atenolol 100 mg 04/16/25 09:00 04/21/25 09:33 Atenolol 50 Mg Tablet PO 100 mg 09 JENNIFER Administration Calcium Carbonate 200 mg 04/18/25 13:54 04/21/25 09:33 Calcium Carbonate (Tums) 500 Mg (200 Mg Elemental) PO 200 mg Q6H PRN Administration Indigestion Famotidine 20 mg 04/18/25 13:54 04/21/25 09:33 Famotidine 20 Mg/2 Ml Vial IV PUSH 20 mg ONCE PRN Administration Heartburn Hydromorphone HCl 1 mg 04/14/25 21:18 04/15/25 17:14 Hydromorphone Hcl Inj (*Crx) 2 Mg/Ml Vial IV PUSH 1 mg Q4H PRN Administration Pain Rated 7-10 Hydroxyzine HCl 25 mg 04/19/25 11:12 04/20/25 21:25 Hydroxyzine Hcl 25 Mg Tablet PO 25 mg Q6H PRN Administration Anxiety Linezolid 600 mg in 300 mls @ 300 mls/hr 04/16/25 11:15 04/21/25 09:35 Zyvox IVPB 300 mls/hr Q12HR JENNIFER Administration Ceftriaxone Sodium 2 gm in 100 mls @ 200 mls/hr 04/19/25 16:00 04/20/25 16:53 Rocephin 2 Gm/Ns 100 Ml IVPB Infused Q24H JENNIFER Infusion Loratadine 10 mg 04/17/25 08:20 Loratadine 10 Mg Tablet PO 0900 PRN Congestion Magnesium Oxide 400 mg 04/15/25 15:25 04/21/25 09:34 Magnesium Oxide 400 Mg Tablet PO 400 mg DAILY JENNIFER Administration Ondansetron HCl 4 mg 04/14/25 21:18 04/17/25 17:15 Ondansetron Inj 4 Mg/2 Ml Vial IV PUSH 4 mg Q4H PRN Administration Nausea And Vomiting Trazodone HCl 100 mg 04/19/25 11:10 04/20/25 21:25 Trazodone Hcl 50 Mg Tablet PO 100 mg HS PRN Administration Insomnia Radiology Results: ITS Impressions Pelvis CT 04/14/25 15:39 IMPRESSION: 1. Small bilateral hydroceles with prominent scrotal edema including some associated hyperemia consistent with cellulitis. No evident abscess or soft tissue gas to suggest active fasciitis which is ultimately a clinical diagnosis. Scrotum Ultrasound 04/20/25 12:37 Impression: Suspected bilateral epididymitis. No testicular mass or torsion. Diffuse scrotal soft tissue thickening/edema. Labs Labs: Laboratory Results - last 24 hr 04/21/25 05:28 WBC 15.9 H RBC 4.19 L Hgb 12.2 L Hct 37.5 L MCV 89.5 MCH 29.1 MCHC 32.5 RDW 14.0 Plt Count 204 MPV 10.1 Immature Gran % (Auto) 15.5 H Neut % (Auto) 56.7 Lymph % (Auto) 20.6 Teller % (Auto) 5.7 Eos % (Auto) 0.6 Baso % (Auto) 0.9 Lymph # (Auto) 3.27 H Teller # (Auto) 0.9 H Eos # (Auto) 0.1 Baso # (Auto) 0.2 H Abs Immat Gran (auto) 2.45 H Absolute Neuts (auto) 9.0 H Absolute Nucleated RBC 0.000 Band Neutrophils % Not Reportable Nucleated RBC % 0.0 Atypical Lymphocytes Present Platelet Estimate Adequate Schistocytes None seen Sodium 137 Potassium 4.3 Chloride 105 Carbon Dioxide 26 Anion Gap 6 BUN 16 Creatinine 0.84 Estim Creat Clear Calc 128 Estimated GFR > 60 Glucose 117 H Calcium 8.2 L Magnesium 1.9 Total Bilirubin 0.6 AST 40 ALT 114 H Alkaline Phosphatase 140 H Total Protein 6.1 L Albumin 2.9 L
[2025-04-21 14:00] VITALS: BP 114/59; PULSE 70; RESP 18; TEMP 36.8; O2SAT 100
[2025-04-21] MEDS: CEFDINIR 300 MG CAPSULE PO ×2 (14:09→21:10)
--- NOTE | 2025-04-21 15:15 | PCNWS ---
Weekly nutritional screen. Patient is tolerating current Regular diet with adequate intake. No weight loss reported. No nutritional needs at this time.
[2025-04-21] MEDS: hydrOXYzine HCL 25 MG TABLET PO (21:10)
[2025-04-21] MEDS: traZODone HCL 50 MG TABLET 100 MG PO (21:10)
[2025-04-21] MEDS: SULFAMETHOXAZOLE/TRIMETHOPRIM 800/160 MG DS TABLET 1 TAB PO (21:10)
[2025-04-21 22:22] VITALS: BP 149/87; PULSE 66; RESP 20; TEMP 36.9; O2SAT 99
[2025-04-22 00:17] VITALS: O2SAT 99
[2025-04-22 05:48] LABS: Basophils Absolute Auto 0.1 K/mm3 (0.0-0.1); Basophils Percent Auto 0.6 % (0.2-1.2); Eosinophils Absolute Auto 0.1 K/mm3 (0-0.3); Eosinophils Percent Auto 0.6 % (0-4.4); Hematocrit 35.7 % (42.0-52.0); Hemoglobin 11.4 g/dL (14.0-18.0); Immature Granulocyte Absolute 0.92 K/mm3 (0.00-0.031); Immature Granulocyte Percent A 8.3 % (0-0.5); Lymphocytes Absolute Auto 2.72 K/mm3 (0.9-3.2); Lymphocytes Percent Auto 24.6 % (18.3-44.2); Mean Corpuscular HGB Conc 31.9 g/dl (32-36); Mean Corpuscular Hemoglobin 29.3 pg (26-34); Mean Corpuscular Volume 91.8 fl (80-100); Monocytes Absolute Auto 0.7 K/mm3 (0.1-0.6); Monocytes Percent Auto 6.4 % (2.6-8.5); Neutrophils Absolute Auto 6.6 K/mm3 (1.3-6.7); Neutrophils Percent Auto 59.5 % (45.5-73.1); Platelet Count Result 195 k/mm3 (150-375); Red Blood Count 3.89 M/mm3 (4.6-6.20); Red Cell Distribution Width 14.1 % (11.5-14.5)
[2025-04-22 06:00] VITALS: BP 129/65; PULSE 98; RESP 20; TEMP 36.8; O2SAT 100
[2025-04-22 06:19] LABS: Alanine Aminotransferase 85 U/L (6-50); Albumin Level 2.9 g/dL (3.5-5.1); Alkaline Phosphatase 122 U/L (38-126); Anion Gap 4 mmol/L (4-12); Aspartate Amino Transferase 30 U/L (17-59); Bilirubin,Total 0.5 mg/dL (0.2-1.3); Blood Urea Nitrogen 15 mg/dL (9-20); Calcium 8.6 mg/dL (8.4-10.2); Carbon Dioxide 25 mmol/L (22-30); Chloride 107 mmol/L (98-107); Estimated CRCL calculation 123 ml/min; Estimated Glomerular Filt Rate > 60; Glucose 97 mg/dL (65-110); Potassium 4.4 mmol/L (3.4-5.0); Sodium 136 mmol/L (137-145); Total Protein 6.1 g/dL (6.3-8.2)
[2025-04-22 08:49] VITALS: PULSE 68
[2025-04-22] MEDS: amLODIPine BESYLATE 10 MG TABLET PO (08:49)
[2025-04-22] MEDS: atenoloL 50 MG TABLET 100 MG PO (08:49)
[2025-04-22] MEDS: SULFAMETHOXAZOLE/TRIMETHOPRIM 800/160 MG DS TABLET 1 TAB PO (08:49)
[2025-04-22] MEDS: MAGNESIUM OXIDE 400 MG TABLET PO (08:49)
[2025-04-22] MEDS: CEFDINIR 300 MG CAPSULE PO (08:49)
--- NOTE | 2025-04-22 12:49 | WPDUROPN2 ---
Progress Note: A&P Assessment and Plan (1) Scrotal abscess: Code(s): N49.2 - Inflammatory disorders of scrotum Status: Acute Assessment and Plan: Scrotal abscess Culture growing Group A Strep PCN allergy noted Plan Agree with extended course of oral antibiotics and continued wound care (cefdinir/Bactrim) No drainable fluid collection at this point or need for further surgical intervention. Urologically cleared for discharge. Follow-up with Dr. Posadas outpatient in about 2 weeks. Subjective Subjective Date/Time Seen: 04/22/25 12:49 Interval history: NAEO, afebrile Transitioned to cefdinir/Bactrim yesterday Patient comfortable on exam, denies complaints Exam Narrative: Scrotum examined. Some associated edema. No significant erythema. Scrotal incisions noted. No necrosis of the skin. Objective Data Vital Signs Vital Signs: Vital Signs - 24 hr 04/21/25 14:00 04/21/25 20:00 04/21/25 22:22 Temperature 98.3 F 98.5 F Pulse Rate 70 66 Respiratory Rate 18 20 Blood Pressure 114/59 L 149/87 H Pulse Oximetry 100 99 Oxygen Delivery Room Air Fraction of Inspired Oxygen 04/22/25 00:17 04/22/25 06:00 04/22/25 08:49 Temperature 98.3 F Pulse Rate 98 68 Respiratory Rate 20 Blood Pressure 129/65 Pulse Oximetry 99 100 Oxygen Delivery Room Air Fraction of Inspired Oxygen 21 Intake/Output Intake/Output: Intake & Output 04/19/25 04/20/25 04/21/25 04/22/25 23:59 23:59 23:59 23:59 Intake Total 3620 5260 2820 1040 Output Total 350 1800 Balance 3270 5260 1020 1040 Meds/Results Medications: Active Medications Generic Name Dose Route Start Last Admin Trade Name Freq PRN Reason Stop Dose Admin Acetaminophen 650 mg 04/14/25 21:18 Acetaminophen 325 Mg Tablet PO Q4H PRN Mild Pain (1-3) or Fever Hydrocodone Bitart/Acetaminophen 1 tab 04/14/25 21:18 04/17/25 08:12 Hydrocodone/Acetaminophen (*Crx) 5-325 Mg Tablet PO 1 tab Q4H PRN Administration Pain Rated 4-6 Amlodipine Besylate 10 mg 04/15/25 09:00 04/22/25 08:49 Amlodipine Besylate 10 Mg Tablet PO 10 mg DAILY JENNIFER Administration Atenolol 100 mg 04/16/25 09:00 04/22/25 08:49 Atenolol 50 Mg Tablet PO 100 mg 0900 JENNIFER Administration Calcium Carbonate 200 mg 04/18/25 13:54 04/21/25 21:10 Calcium Carbonate (Tums) 500 Mg (200 Mg Elemental) PO 200 mg Q6H PRN Administration Indigestion Cefdinir 300 mg 04/21/25 14:00 04/22/25 08:49 Cefdinir 300 Mg Capsule PO 05/13/25 09:01 300 mg Q12HR JENNIFER Administration Famotidine 20 mg 04/18/25 13:54 04/21/25 09:33 Famotidine 20 Mg/2 Ml Vial IV PUSH 20 mg ONCE PRN Administration Heartburn Hydromorphone HCl 1 mg 04/14/25 21:18 04/15/25 17:14 Hydromorphone Hcl Inj (*Crx) 2 Mg/Ml Vial IV PUSH 1 mg Q4H PRN Administration Pain Rated 7-10 Hydroxyzine HCl 25 mg 04/19/25 11:12 04/21/25 21:10 Hydroxyzine Hcl 25 Mg Tablet PO 25 mg Q6H PRN Administration Anxiety Loratadine 10 mg 04/17/25 08:20 Loratadine 10 Mg Tablet PO 0900 PRN Congestion Magnesium Oxide 400 mg 04/15/25 15:25 04/22/25 08:49 Magnesium Oxide 400 Mg Tablet PO 400 mg DAILY JENNIFER Administration Ondansetron HCl 4 mg 04/14/25 21:18 04/17/25 17:15 Ondansetron Inj 4 Mg/2 Ml Vial IV PUSH 4 mg Q4H PRN Administration Nausea And Vomiting Trazodone HCl 100 mg 04/19/25 11:10 04/21/25 21:10 Trazodone Hcl 50 Mg Tablet PO 100 mg HS PRN Administration Insomnia Trimethoprim/Sulfamethoxazole 1 tab 04/21/25 21:00 04/22/25 08:49 Sulfamethoxazole/Trimethoprim 800/160 Mg Ds Tablet PO 05/13/25 21:01 1 tab Q12HR JENNIFER Administration Radiology Results: ITS Impressions Pelvis CT 04/14/25 15:39 IMPRESSION: 1. Small bilateral hydroceles with prominent scrotal edema including some associated hyperemia consistent with cellulitis. No evident abscess or soft tissue gas to suggest active fasciitis which is ultimately a clinical diagnosis. Scrotum Ultrasound 04/20/25 12:37 Impression: Suspected bilateral epididymitis. No testicular mass or torsion. Diffuse scrotal soft tissue thickening/edema. Labs Labs: Laboratory Results - last 24 hr 04/22/25 05:19 WBC 11.0 H RBC 3.89 L Hgb 11.4 L Hct 35.7 L MCV 91.8 MCH 29.3 MCHC 31.9 L RDW 14.1 Plt Count 195 MPV 10.0 Immature Gran % (Auto) 8.3 H Neut % (Auto) 59.5 Lymph % (Auto) 24.6 [place] % (Auto) 6.4 Eos % (Auto) 0.6 Baso % (Auto) 0.6 Lymph # (Auto) 2.72 [place] # (Auto) 0.7 H Eos # (Auto) 0.1 Baso # (Auto) 0.1 Abs Immat Gran (auto) 0.92 H Absolute Neuts (auto) 6.6 Absolute Nucleated RBC 0.000 Nucleated RBC % 0.0 Sodium 136 L Potassium 4.4 Chloride 107 Carbon Dioxide 25 Anion Gap 4 BUN 15 Creatinine 0.88 Estim Creat Clear Calc 123 Estimated GFR > 60 Glucose 97 Calcium 8.6 Magnesium 2.0 Total Bilirubin 0.5 AST 30 ALT 85 H Alkaline Phosphatase 122 Total Protein 6.1 L Albumin 2.9 L
--- NOTE | 2025-04-22 13:42 | P.DS_ITS ---
DS: Admitting Diagnosis Discharge Date 04/22/2025 Admitting Diagnosis Scrotal cellulitis DS: Discharge Diagnosis Discharge Diagnosis (1) Cellulitis of scrotum: Code(s): N49.2 - Inflammatory disorders of scrotum Status: Acute Assessment and Plan: -Worsened despite doxycycline and Rocephin 04/13 -US and CT show thickened skin without gangrene -Urology evaluated patient in ER -Patient received 4 liters IV fluids for sepsis bolus, remains tachycardic -Urine culture sent 04/13-pending -Received Rocephin/doxycycline and vancomycin in ER -Vancomycin will be continued - urology was consulted and no acute intervention is recommended - continue antibiotics 04/16: I&D performed, per uro, erythematous and sloughy appearance with not a lot of pus -Per uro Dr. Posadas, vanc and ceftriaxone may have been making his cellulitis worse. Talked to ID pharm and decision was made to switch abx to Zyvox (Linezolid). -If does better on Zyvox, will likely switch over to Bactrim x7-10 days pending culture -Uro to continue to follow 04/17: Pt feeling better today with pain, uro changed dressing this AM. Quite a bit of drainage over night per uro note. -Per uro note today: Continue with IV antibiotics for the time being. Overall he is improving despite the slight bump in his white count. There is decreased edema, decreased erythema and overall he is feeling better. Will continue to monitor. Fibrinous tissue debrided at bedside. Otherwise appears to be healing well. Quite a bit of drainage overnight. She will start wet-to-dry dressing changes 2-3 times per day. 04/18: Pt continue to feel better in regards to his cellulitis. Updated him on uro's plan below and plan for possible re-imaging and addition of abx all pending AM labs. Pt agreeable with plan. -Per uro note today: Clinically is improving on exam although drainage persists. Cultures negative to date. However do not have explanation for rise in white count at this point. He remains afebrile. Will continue to monitor. The erythema in his suprapubic area has not increased. Will have to continue to monitor. If white count continues to increase may need reimaging. Patient would have been ready for discharge other than his bump in white count. -->I spoke with ID pharm today and they also recommended if the WBC still is uptrending tomorrow that adding back on Ceftriaxone would be a good idea to see if this would make a difference. 04/19: Pt continue to feel better in regards to his cellulitis, reports no pain. Updated him on uro's plan below and plan for possible re-imaging and addition of abx all pending AM labs. WBC still mildly trending up. Spoke to Dr. Messer with uro today, plan to order US scrotal imaging as well as re-start ceftriaxone per ID pharm. Will continue to trend labs in the AM, if still elevated on 04/21, per uro, abd/pelvis CT to make sure nothing else is going on. Pt agreeable with the plan. Per uro note: - Patient is doing well and his exam is benign and stable from previous, with no fluctuance, no purulence, with dressing changes going well. He is afebrile. - However, his WBC is now up to 18. - Therefore, discussed with care team and will add on ceftriaxone for patient to his abx. - Will also obtain scrotal US to ensure no other major abnormalities noted. - If no obvious abnormalities, may consider CT abdomen/pelvis to ensure no other causes of his pain/leukocytosis is missing. -Still pending final anaerobic wound culture, aerobic culture yielding Group A strep, continue Zyvox. -BCs pending 04/20: -WBC starting to down-trend now, 18.2-->15.8. Will continue to trend labs tomorrow. -Scrotal US read by uro: No acute or continued infection. -Continue with both IV abx, hopeful to switch to oral tomorrow if WBC still downtrending and pt continues to improve. 04/21: -WBC virtually the same over night, will continue to trend labs -Per uro recs today: Antibiotics and wound care. Will likely need a long course of antibiotics. Hopefully something oral would be sufficient. No drainable fluid collection at this point or need for further surgical intervention -Spoke extensively to ID pharm about pt, plan to D/C ceftriaxone and Zyvox. Switch to oral Bactrim and cefdinir, will continue these at D/C tomorrow, hopeful for D/C as well. 04/22: WBC continues to decrease. Pt feeling back to normal today and providing own wound care. -Per uro: Agree with extended course of oral antibiotics and continued wound care (c efdinir/Bactrim) No drainable fluid collection at this point or need for further surgical intervention. Urologically cleared for discharge. Follow-up with Dr. Posadas outpatient in about 2 weeks. (2) Sepsis: Code(s): A41.9 - Sepsis, unspecified organism Status: Acute Assessment and Plan: -See above -Lactic acid improved from 4.5 to 2.1 after IV fluids -Elevated bilirubin likely due to sepsis as well, has since normalized -Blood cultures pending, urine cultures negative, wound culture prelim with Group A step isolated (continue Zyvox) -BP have been more baseline, will continue to monitor 04/19: -Slight bump is WBC from yesterday again, 15.7-->18.2. Will continue daily labs and VS. Per uro, scrotal US planned for tomorrow and re-start ceftriaxone today. 04/20: -BC final negative -WBC downtrending now, 18.2-->15.8, will continue with labs tomorrow. -Scrotal US unremarkable. Per uro, keep on IV abx and reassess tomorrow. -Still awaiting wound final result, prelim with Group A step isolated (continue Zyvox) 04/21: -BC final negative -WBC virtually same overnight 15.8-->15.9, will continue with labs tomorrow. -Still awaiting wound final result, prelim with Group A step isolated (continue Zyvox) -Spoke extensively to ID pharm about pt, plan to D/C ceftriaxone and Zyvox. Switch to oral Bactrim and cefdinir, will continue these at D/C tomorrow, hopeful for D/C as well. 04/22: -WBC continuing to decrease. -Will be d/c with remaining course of oral abx Bactrim & Cefdinir. (3) Hypertension: Code(s): I10 - Essential (primary) hypertension Status: Acute Assessment and Plan: -Continue home medications (4) Hyponatremia: Code(s): E87.1 - Hypo-osmolality and hyponatremia Status: Acute Assessment and Plan: -Sodium 127 on chemistry panel in ER on 04/14, was 136 on 04/13 ER visit -Likely SIADH due to pain -Patient received nearly 4 liters of LR bolus in ER and 500 mL potassium in NACL -Continue to trend labs daily -->04/16: 133 -->04/17: 138 -->04/18: 136 -->04/19: 137 -Appetite has been fair, endorsing continued GERD type sx today, rx meds. Encouraged oral intake, will continue to monitor -->04/20: 138, pt reports his appetite is a lot better today -->04/21: 137 -->04/22: 136, back to baseline, pt eating and drinking well (5) Hypokalemia: Code(s): E87.6 - Hypokalemia Status: Acute Assessment and Plan: -Potassium 3.0 in ED -IV 40 mEq given, repeat labs in AM -->04/16: 3.2 -Continue daily suppl -->04/17: 3.4 -Continue daily suppl -->04/18: 3.7 -Continue daily suppl -->04/19: 3.9 -Continue daily suppl, encouraged intake of more liquid and food today -->04/20: 4.2 -Since value is over 4 and pt is now eating and drinking normally again, will D/C K suppl -->04/21: 4.3 -->04/22: 4.4, back to baseline (6) Abnormal urinalysis: Code(s): R82.90 - Unspecified abnormal findings in urine Status: Acute Assessment and Plan: -Urine culture WDL from ED visit 04/13 -WBC 51-100 and leukocyte esterase present -Received Rocephin on both 04/13 and 04/14 in ER -Asymptomatic (7) Kidney disease: Code(s): N28.9 - Disorder of kidney and ureter, unspecified Status: Acute Assessment and Plan: -No labs prior to 04/13 available but renal dysfunction noted on both 04/13 and 04/14 labs -Cr 1.7, eGFR 42 and estimated CrCl 64 on both 04/13 and 04/14 labs -->Have since normalized -Recheck in AM after fluid boluses -Consider Nephrology consult if worsening of renal function or sodium levels (8) Acid reflux: Code(s): K21.9 - Gastro-esophageal reflux disease without esophagitis Status: Acute Assessment and Plan: Pt with new c/o acid reflux today and states it is affecting his sleep -Educated him on sitting up while eating/drinking and after for at least an hour and to increase his mobility throughout the day -Ordered tums and Pepcid PRN 04/19: Pt states that the tums helped for a little while yesterday and the pepcid had not been tried. Instructed nursing to trial both today with an increased diet and above education. 04/20: Pt reports that his acid reflux is non existent since taking a dose of pepcid yesterday. Pt plans to take this OTC as needed at home. 04/21: C/o more today, pt receiving tums and pepcid when I was in the room, educated him that both of these meds can be taken multiple times a day on a PRN basis so he is able to request them when he is in need, pt aware. 04/22: Pt with controlled GERD today with tums. Plan to get tums and pepcid OTC and take PRN at home. (9) Insomnia: Code(s): G47.00 - Insomnia, unspecified Status: Acute Assessment and Plan: Report this is acute on chronic, he takes melatonin 10-20 mg intermittently at home and states that after taking this, he is knocked out for days sometimes -Pt denies talking to his PCP about this in the past because his priority has been treating his HTN -Will trial Dose of Trazodone tonight to see if this helps (pt on no psychiatric meds nor does he have a hx of arrhythmias) -Will continue to monitor 04/19: Pt reports that he got 2-3 hours of sleep last night and that he is not sure if the Trazodone helped. Pt also self-reporting some anxiety and cabin fever that would be attributing to his insomnia -Plan to increase Trazodone tonight to 100mg to see if this helps -Will also trial Hydroxyzine on a PRN status today as well to also see if this helps his nerves/sleep - started this instead of BuSpar due to risk of serotonin syndrome on BuSpar and Zyvox. 04/20: Pt reports that he finally got sleep last night. When pt ready for D/C, will give him limited supply of Hydroxyzine and Trazodone and have him f/u with his PCP, pt agreeable with this plan. 04/21: Pt reports not as great sleep last night but is still feeling OK. Will continue with sleep regimen. 04/22: Pt reports sleeping well again last night. Will continue him on BusPar and Trazodone with f/u with PCP for refills. Plan Will be d/c with remaining course of oral abx Bactrim & Cefdinir. Pt to f/u with uro in x2 weeks as well as with PCP. DS: Summary Hospital Course Reason for hospitalization: Scrotal cellulitis Hospital Course: Retrieved from H/P: 50 year old male patient with history of HTN who is admitted to the hospital with scrotal cellulitis. Patient was seen in ER on 04/13 and treated with Rocephin and doxycycline for epididymitis after ultrasound consistent with this finding. Urinalysis on that visit showed 1+ leukocyte esterase, 51-100 wbc's no urine bacteria and negative nitrates. Urine culture is pending. Patient reports that pain worsened so he came back to the emergency department on 04/14 with increased pain and increased swelling. Labs revealed WBC 10, Sodium down to 127 from 136 the prior day, potassium down to 3.0 from 3.6, Carbon dioxide down to 16 form 23. Renal function with same creatinine but increased BUN from 20 to 38. Lactic acid noted at 4.5 and bilirubin increased from 2.1 to 4.4. These labs consistent with sepsis. Patient received nearly 4 liters of IV fluids in ER but remained tachycardic. TSH normal. Repeat lactic acid down to 2.1. STD urine labs negative today. CT scan and repeat scrotal ultrasound today show scrotal wall thickening without free gas or fluid pocket collection. Patient evaluated by Urology in ER and will follow along for repeat scrotal evaluations. Patient received Rocephin, doxycycline and vancomycin in ER. Will continue Vancomycin for now. Heparin and diltiazem was briefly ordered but stopped without patient receiving either medication as initial EKG initially thought to be atrial flutter but later re- evaluated and found to be sinus tach. Pt is seen and examined. Urology saw pt and no acute intervention is needed. pain is controlled 04/16: Pt was seen post I&D of the scrotum. Pt reports that he is starting to feel pain post surgery, but the overall pressure around his scrotum is better. Per uro Dr. Posadas, vanc and ceftriaxone may have been making his cellulitis worse. Uro talked to ID pharm and decision was made to switch abx to Zyvox (Linezolid). Pt working on liquid and will advance diet as tolerated. 04/17: Pt reports doing better today pain garner, he is trying to space out his oral pain meds q7 hours because he does not really like how they make him feel. Encouraged pt to take them as needed for pain, pt agreeable. Dressing changed by sangita this AM, it is currently C/D/I. Plan to remain on IV abx. Slight bump in WBC overnight (9->12.9), will continue to monitor daily labs. 04/18: Pt reports he is feeling okay today but reports he is feeling some acid reflux (acute) and having issues sleeping (chronic), see plan below. Scrotal area feeling OK today just with increased drainage, in no real need for pain meds. Dressing changed by uro this AM and afternoon per nursing, it is currently C/D/I. Plan to remain on IV abx. Slight bump in WBC overnight again, will continue to monitor daily labs. Uro to potentially re-image tomorrow. 04/19: Pt reporting minimal pain today, but really wants to go home. He states that he is not really getting sleep here and is tired of being in the bed. I encouraged him to get up and about to help with his cabin fever, but it would not be safe to send him home quite yet due to his uptrending WBC. Pt agreeable to stay. Pt self reports anxiety and insomnia, see plan below. 04/20: Pt overall feeling a lot better today by his account, he also looks much better. Pt reports that he got sleep for the first time last night with the Hydroxyzine during the day and increased dose of trazodone at night. Per nursing, during dressing change, pt starting to have more sensation and his edema is decreased. Pt reports his anxiety today and acid reflux is non existent. Pt interested in taking a shower today, I encouraged him to await plan from uro before doing this. 04/21: Pt continues to feel good in regard to his infection. He is c/o GERD sx today again, plan to use tums and pepcid today. He was able to shower today. Awaiting recs from uro for D/C and abx therapy. 04/22: Pt states that he feels back to baseline. WBC downtrending, almost down to nml. Pt to D/C with uro f/u in x2 weeks. Status at Discharge Cognitive/behavioral status at discharge: Stable Functional status at discharge: independent ambulation Overall status at discharge: patient is progressing back to baseline Time Spent with Patient Time attestation: Total time spent providing and/or coordinating discharge services: Exam Const: General: comfortable and no acute distress HENMT: Face/Nose/Sinus: Normal nares present Mouth: Yes moist mucous membranes Eyes: General: appearance normal, both eyes and all related structures Sclera: sclerae normal Neck: Neck: supple and no JVD Carotids: no bruits Resp: Effort & Inspection: normal respiratory effort Auscultation: clear to auscultation bilaterally Cardio: Rate: regular rate Rhythm: regular rhythm GI: Inspection: non-distended Auscultation: normal bowel sounds Other: No TTP : Other: Nursing/patient dressing with packing in place, C/D/I Skin: General skin exam: normal color and no rashes or lesions noted Other: No more erythema seen to the suprapubic region Neuro: Speech: normal speech Motor exam (neuro): Normal motor muscle tone present throughout Sensory Exam: normal sensation Extrem: General: normal to inspection and no edema Psych: Mental Status: mental status grossly normal Affect: normal affect DS: Data Data Completed and Pending Labs on day of discharge: Labs from last 24 hours 04/22/25 05:19 WBC 11.0 H RBC 3.89 L Hgb 11.4 L Hct 35.7 L MCV 91.8 MCH 29.3 MCHC 31.9 L RDW 14.1 Plt Count 195 MPV 10.0 Immature Gran % (Auto) 8.3 H Neut % (Auto) 59.5 Lymph % (Auto) 24.6 [place] % (Auto) 6.4 Eos % (Auto) 0.6 Baso % (Auto) 0.6 Lymph # (Auto) 2.72 [place] # (Auto) 0.7 H Eos # (Auto) 0.1 Baso # (Auto) 0.1 Abs Immat Gran (auto) 0.92 H Absolute Neuts (auto) 6.6 Absolute Nucleated RBC 0.000 Nucleated RBC % 0.0 Sodium 136 L Potassium 4.4 Chloride 107 Carbon Dioxide 25 Anion Gap 4 BUN 15 Creatinine 0.88 Estim Creat Clear Calc 123 Estimated GFR > 60 Glucose 97 Calcium 8.6 Magnesium 2.0 Total Bilirubin 0.5 AST 30 ALT 85 H Alkaline Phosphatase 122 Total Protein 6.1 L Albumin 2.9 L Discharge Plan Discharge Attending physician on discharge: Rupal Aragon Consulting providers: James Day; Jac Diaz Discharging Clinician: Rupal Aragon Anticipated Discharge Date/Time: 04/22/25 14:30 Patient Disposition: Home Activity: may shower and as tolerated Diet: regular Wound Care Instructions: other - see discharge instructions Discharge Instructions: 1. I am giving you a limited supply of Hydroxyzine (Atarax) and Trazodone for anxiety and sleep aid. Plan to follow-up with your primary care provider for this admission and to continue on with these medications. I am glad these medications helped with during your hospital stay! 2. I am also writing you for two antibiotics that you take by mouth to make sure the infection is gone, they are called Cefdinir (Omnicef) and Trimethoprim/Sulfamethoxazole (Septra). These are pretty lengthy regimens, but you need to take the full course of both to make sure that this specific type of infection is completely gone. You will follow up with Dr. Posadas in the uro office in x2 weeks, call the number listed below and make an appt. -Since you are on these types of antibiotics, we need to keep track of your blood work just one time. I have an order for you to obtain blood work sometime next week, your blood counts and your electrolytes. 3. Continue your wet to dry dressing changes to your scrotum three times daily, the cover with an abd pad with mesh underwear. Continue to check your blood pressure and blood sugar at home if applicable. Keep your scheduled appts with your primary care provider and any specialist that you may see. Return to the emergency department if you develop sudden shortness of breath, chest pain, a fever of greater than 101.5, or nausea, vomiting, abd pain, or diarrhea that does not go away. Follow-up with your primary care provider within 1-2 weeks, they will want to be updated on your inpatient stay in the hospital. Thank you for choosing [facility] for your healthcare needs. Patient Instructions: Antibiotic Form, Trazodone (By mouth), Hydroxyzine (By mouth), Cellulitis (GEN) Patient Language: Panamanian Stand Alone Forms: General Discharge Information, Work/School Release IP Follow-up/Referrals: Boo Posadas MD [Physician] - 2 Weeks UNKNOWN,DOCTOR [Primary Care Provider] - 2 Weeks (Primary care provider follow-up) Discharge Medications: New sulfamethoxazole-trimethoprim 800-160 mg Tablet 1 tab PO Q12HR Qty: 45 0RF hydroxyzine HCl 25 mg Tablet 25 mg PO Q6H PRN (Reason: Anxiety) Qty: 90 1RF cefdinir 300 mg Capsule 300 mg PO Q12HR Qty: 45 0RF trazodone 50 mg Tablet 100 mg PO HS PRN (Reason: Insomnia) Qty: 30 1RF Continued amlodipine 10 mg tablet 10 mg PO DAILY atenolol 100 mg tablet 100 mg PO Q24H cetirizine 10 mg tablet 10 mg PO DAILY PRN (Reason: allergy symptoms) Discontinued doxycycline hyclate 100 mg tablet 100 mg PO DAILY 10 Days Qty: 10 0RF Other Ambulatory Orders: Complete Blood Count no Diff (Routine) Timeframe: 3 Days Location: Determined by Patient Ordered By: Rupal Aragon Comprehensive Metabolic Panel (Routine) Timeframe: 3 Days Location: Determined by Patient Ordered By: Rupal Aragon Date of admission: 04/14/25 16:51 Primary Care Provider: UNKNOWN,DOCTOR Admitting Provider: Mia Allen Attending physician on admission: Rupal Aragon Condition: Stable Quality VTE Prophylaxis VTE prophylaxis: mechanical ordered Hospitalist MIPS Heart Failure (Exclusion) Patient has history of Heart Transplant or Left Ventricular Assistive Device?: No IF YES, STOP HERE Heart Failure (Qualifier) Patient has current or prior documentation of LVEF less than or equal to 40%, or mod/servere depressed LVSF?: No IF NO, STOP HERE
== END 2025-04-22 15:14 | disposition home or self-care (01) | DRG 872 ==
LOC: ANHED 16:18 → ANH3MED 17:14
PROVIDERS: Nurse Practitioner; Urology; Admitting Provider Family Medicine; Emergency Provider Emergency Medicine
PROC: 0V950ZX Drainage of Scrotum, Open Approach, Diagnostic (ICD-10-PCS; CPT 54700; principal; 2025-04-16 10:00)
DX: A41.9 Sepsis, unspecified organism (principal); E87.1 Hypo-osmolality and hyponatremia; N49.2 Inflammatory disorders of scrotum; B95.0 Streptococcus, group A, as the cause of diseases classified elsewhere; I10 Essential (primary) hypertension; E87.6 Hypokalemia; F17.290 Nicotine dependence, other tobacco product, uncomplicated; G47.00 Insomnia, unspecified; K21.9 Gastro-esophageal reflux disease without esophagitis; N28.9 Disorder of kidney and ureter, unspecified; R82.90 Unspecified abnormal findings in urine; Z88.0 Allergy status to penicillin
CPT/HCPCS: 36415; 72193; 76870; 80053; 80202; 83605; 83735; 84145; 84443; 85025; 85055; 85610; 85652; 85730; 86140; 87040; 87070; 87075; 87205; 87491; 87591; 87661; 93005; 93976; 96361; 96365; 96366; 96367; 96368; 96375; 99285; A9270; J0696; J1100; J1171; J1644; J2003; J2020; J2250; J2405; J2550; J2704; J3010; J3370; J3480; J7040; J7120; Q9967

== ENCOUNTER 2025-05-02 15:31 | Outpatient (CLI) | payer BC, SELFPAY ==
[2025-05-02 16:20] LABS: Hematocrit 40.7 % (42.0-52.0); Hemoglobin 13.5 g/dL (14.0-18.0); Mean Corpuscular HGB Conc 33.2 g/dl (32-36); Mean Corpuscular Hemoglobin 29.2 pg (26-34); Mean Corpuscular Volume 87.9 fl (80-100); Mean Platelet Volume 9.2 fl (7.4-10.4); Platelet Count Result 481 k/mm3 (150-375); Red Blood Count 4.63 M/mm3 (4.6-6.20); Red Cell Distribution Width 12.7 % (11.5-14.5); White Blood Count 12.2 K/mm3 (4.5-10.0)
[2025-05-02 16:32] LABS: Alanine Aminotransferase 34 U/L (6-50); Albumin Level 4.1 g/dL (3.5-5.1); Alkaline Phosphatase 120 U/L (38-126); Anion Gap 11 mmol/L (4-12); Aspartate Amino Transferase 26 U/L (17-59); Bilirubin,Total 0.4 mg/dL (0.2-1.3); Blood Urea Nitrogen 17 mg/dL (9-20); Calcium 9.9 mg/dL (8.4-10.2); Carbon Dioxide 22 mmol/L (22-30); Chloride 101 mmol/L (98-107); Estimated Glomerular Filt Rate > 60; Glucose 112 mg/dL (65-110); Potassium 4.4 mmol/L (3.4-5.0); Sodium 134 mmol/L (137-145); Total Protein 8.2 g/dL (6.3-8.2)
== END 2025-05-02 15:32 | disposition home or self-care (01) ==
DX: N49.2 Inflammatory disorders of scrotum (principal)
CPT/HCPCS: 36415; 80053; 85027